=== PATIENT | female | born 1960 | race Caucasian/White ===

== ENCOUNTER 2019-02-16 18:27 | Inpatient (IN) | payer OTHER ==
[2019-02-16] MEDS ORDERED: SODIUM CHLORIDE 0.9% 1,000 ML IV ONE (18:39)
[2019-02-16 18:40] LABS: Glucose,Whole Blood 75 mg/dL (75-99)
[2019-02-16] MEDS ORDERED: fentaNYL (PF) 50 MCG/ML 2 ML AMP IVP STA (18:44)
[2019-02-16 19:21] LABS: Basophils % (A) 0 %; Eosinophils # (A) 0.1 k/uL (0-0.7); Eosinophils % (A) 0 %; HCT 32.8 % (34.0-46.0); HGB 10.6 gm/dL (11.4-16.0); Hypochromasia Slight; Lymphocytes # (A) 0.9 k/uL (1.0-4.8); Lymphocytes % (A) 5 %; MCH 40.1 pg (25.0-35.0); MCHC 32.3 g/dL (31.0-37.0); MCV 123.9 fL (80.0-100.0); Macrocytosis Marked; Mean Platelet Volume 10.1; Monocytes # (A) 0.7 k/uL (0-1.0); Monocytes % (A) 4 %; Neutrophils # (A) 16.6 k/uL (1.3-7.7); Neutrophils % (A) 90 %; Platelet Count 215 k/uL (150-450); RBC 2.65 m/uL (3.80-5.40); RDW 15.7 % (11.5-15.5); WBC 18.5 k/uL (3.8-10.6)
[2019-02-16 19:36] LABS: African American GFR (CKD) 43 (>60 ml/min/1.73 sqM); Albumin 3.2 g/dL (3.5-5.0); Alcohol <10 mg/dL; Alkaline Phosphatase 234 U/L (38-126); Anion Gap 24 mmol/L; Bilirubin, Conjugated 9.8 mg/dL (0.0-0.3); Bilirubin,Unconjugated 2.6 mg/dL (0.0-1.1); Blood Urea Nitrogen 13 mg/dL (7-17); Calcium 8.2 mg/dL (8.4-10.2); Chloride 108 mmol/L (98-107); Glucose 68 mg/dL (74-99); Non-African American GFR(CKD) 37 (>60 ml/min/1.73 sqM); Salicylate 1.1 mg/dL; Sodium 141 mmol/L (137-145)
--- NOTE | 2019-02-16 19:37 | XR ---
EXAMINATION TYPE: XR chest 1V portable DATE OF EXAM: 02/16/2019 COMPARISON: NONE HISTORY: Altered mental status TECHNIQUE: Single view FINDINGS: Heart is normal. Lungs are clear of infiltrate. There is no heart failure. Costophrenic ang les are clear. There are chest leads. IMPRESSION: No active cardiopulmonary disease. Normal heart.
[2019-02-16] MEDS ORDERED: PIPERACILLIN-TAZOBACTAM 3.375 GM in SODIUM CHLORIDE 0.9% 100 ML IVPB STA (19:38)
[2019-02-16 19:40] LABS: Bilirubin, Delta 6.4 mg/dL (0.0-0.2)
[2019-02-16 19:43] LABS: Lactic Acid, Venous 10.8 mmol/L (0.7-2.0)
[2019-02-16] MEDS ORDERED: SODIUM CHLORIDE 0.9% 2,000 ML IV ONE (19:45)
[2019-02-16 19:46] LABS: INR 1.8 (<1.2); Partial Thromboplastin Time 30.7 sec (22.0-30.0); Prothrombin Time 17.5 sec (9.0-12.0)
[2019-02-16 19:48] LABS: Poikilocytosis (M) Present; Target Cells Present
[2019-02-16 20:11] LABS: Carbon Dioxide 9 mmol/L (22-30); Total Bilirubin 18.8 mg/dL (0.2-1.3)
[2019-02-16 20:12] LABS: ALT 92 U/L (4-34); AST 464 U/L (14-36); Acetaminophen <10.0 ug/mL; Creatine Kinase 1060 U/L (30-135)
[2019-02-16 20:13] LABS: Appearance,Urine Turbid (Clear); Bacteria,Urine Few /hpf; Bilirubin,Urine 3+ (Negative); Blood,Urine Small (Negative); Budding Yeast,Urine Many /hpf; Color,Urine Dark Brown; Glucose,Urine (UA) Negative (Negative); Hyaline Casts,Urine 36 /lpf (0-2); Ketones,Urine Trace (Negative); Leukocyte Esterase,Urine Negative (Negative); Mucus,Urine Few /hpf; Nitrite,Urine Negative (Negative); PH, Urine 5.5 (5.0-8.0); Protein,Urine Trace (Negative); RBC,Urine 9 /hpf (0-5); Specific Gravity,Urine 1.014 (1.001-1.035); Squamous Epithelial Cell,Urine 13 /hpf (0-4); WBC,Urine 1 /hpf (0-5)
[2019-02-16 20:14] LABS: Amphetamine Screen,Urine Not Detected (NotDetected); Barbiturate Screen,Urine Not Detected (NotDetected); Benzodiazepines Screen,Urine Not Detected (NotDetected); Cocaine Screen,Urine Not Detected (NotDetected); Methadone Screen, Urine Not Detected (NotDetected); Opiate Screen,Urine Not Detected (NotDetected); Oxycodone Screen, Urine Not Detected (NotDetected); Phencyclidine Screen,Urine Not Detected (NotDetected); Tricyclic Antidepressant,Urine Not Detected (NotDetected); Urn Cannabinoid Scrn Not Detected (NotDetected)
[2019-02-16] MEDS ORDERED: DEXTROSE 50% SYRINGE 50 ML IVP STA (20:14)
--- NOTE | 2019-02-16 20:42 | CT ---
EXAMINATION TYPE: CT brain wo con DATE OF EXAM: 02/16/2019 COMPARISON: None HISTORY: Altered mental status. CT DLP: 2337.4 mGycm Automated exposure control for dose reduction was used. There is mild cerebral atrophy. There is no mass effect nor midline shift. There is no sign of intrac ranial hemorrhage. The calvarium is intact. IMPRESSION: Mild atrophy. No acute intracranial abnormality.
[2019-02-16] MEDS: LACTULOSE 200 GM/300 ML (FROM 1/2 GAL JUG) RECTAL ONE ×2 (20:58→22:03)
--- NOTE | 2019-02-16 21:09 | CT ---
EXAMINATION TYPE: CT angio abd aorta w/Runoff DATE OF EXAM: 02/16/2019 COMPARISON: None HISTORY: Pain. CT DLP: mGycm Automated exposure control for dose reduction was used. CONTRAST: Performed , patient injected with mL of . Multiple axial sections were obtained from the diaphragm to the bottom of the feet with intravenous c ontrast Isovue 100 mL. There are 3-D post processed images. FINDINGS: Lung bases are clear. There is no pleural effusion. There is diffuse fatty infiltration of the liver. Spleen is intact. There is no pancreatic mass. Stomach is intact. There is no adrenal mass. Kidneys show satisfactory contrast opacification. There is no mesenteric edema. There is free fluid in the lo wer abdomen and pelvis. There is Gilmore catheter in the urinary bladder. There is arterial flow in the celiac artery and superior mesenteric artery which are diminutive. Ther e is arterial flow in both renal arteries. There is arterial flow in the iliac and femoral arteries b ilaterally. There is patency of the profunda femoris artery and the superficial femoral artery. There is moderate subcutaneous edema over the posterior right side of the lower pelvis. There is subcutane ous edema in the posterior left upper thigh. There is some wall thickening of the right colon. There are numerous sigmoid diverticula. There is arterial flow in both popliteal arteries. There is arterial flow in the tibial arteries and the anterior and posterior tibial arteries in the lower legs. Exam limited slightly by motion on the left side. There is arterial flow in the posterior tibial arteries at both ankles. There is dorsalis pedis arter y flow on the right side. There is limited visualization of the arteries of the feet. The femoral and popliteal and tibial arteries are diminutive. IMPRESSION: There are generally small arteries of the abdomen pelvis and both legs. This is probably developmenta l but the possibility of diffuse vasculitis should be considered. No focal stenosis. Mild ascites. Fatty infiltration of the liver. Extensive sigmoid diverticulosis without diverticuliti s. There is some mild wall thickening of the right colon that could relate to nonspecific colitis. Subcutaneous edema as above in the posterior abdomen and pelvis and legs.
[2019-02-16] MEDS ORDERED: LACTULOSE 20 GM/30 ML CUP PO ONE (21:15)
--- NOTE | 2019-02-16 21:16 | ED ---
Altered Mental Status HPI - General Chief Complaint: Altered Mental Status Stated Complaint: altered mental status Time Seen by Provider: 02/16/19 18:27 Source: EMS Mode of arrival: EMS Limitations: altered mental status - History of Present Illness Initial Comments: The patient is a 58-year-old female with unknown past medical history who presents to the emergency room with reported altered mental status. EMS does provide history. They state that the patient's neighbor had last seen the patient normal on Wednesday. She does have a history of significant alcohol abuse. The neighbor then did check on the patient today because she had not seen her. She. Through her window and saw her laying on the ground. Police were called and ended up breaking in the door. They found the patient on the ground with signs that she had been there for an extended period of time. She was surrounded by liquor bottles. She was extremely jaundiced and contracted. She was nonverbal but moaning in pain. EMS does not have information available for a next of kin. It is unknown if she has any significant other or children. Unknown if the patient takes any medications or has any ALLERGIES. Remainder of HPI is limited because of the patient's current state - Related Data Home Medications Medication Instructions Recorded Confirmed No Known Home Medications 02/17/19 02/17/19 Allergies Allergy/AdvReac Type Severity Reaction Status Date / Time No Known Allergies Allergy Verified 02/17/19 13:04 Review of Systems ROS Statement: Those systems with pertinent positive or pertinent negative responses have been documented in the HPI. ROS Other: All systems not noted in ROS Statement are negative. Past Medical History Past Medical History: No Reported History History of Any Multi-Drug Resistant Organisms: Unobtainable Past Surgical History: No Surgical Hx Reported Past Psychological History: Unable to Obtain Smoking Status: Unknown if ever smoked Past Alcohol Use History: Unable to Obtain Past Drug Use History: Unable to Obtain - Past Family History Mother Family Medical History: Cancer Father History Unknown: Yes General Exam Limitations: altered mental status General appearance: obtunded, cachectic Head exam: Present: atraumatic, normocephalic Eye exam: Present: scleral icterus Pupils: Present: normal accommodation ENT exam: Present: mucous membranes dry Neck exam: Absent: tenderness, meningismus, thyromegaly Respiratory exam: Present: rales, decreased breath sounds Cardiovascular Exam: Present: normal rhythm, tachycardia GI/Abdominal exam: Present: tenderness, guarding, diminished bowel sounds. Absent: pulsatile mass Rectal exam: Present: normal rectal tone External exam: Present: normal external exam Extremities exam: Present: other (contracted, moans with movement of all 4 extremities) Back exam: Present: other (dependent skin breakdown - over coccyx, bilateral gluteal regions, left upper thoracic back. Stage 2) Neurological exam: Present: altered Skin exam: Present: pallor, mottled Course Vital Signs 02/16/19 02/16/19 02/16/19 18:28 18:53 19:29 Temperature 97.5 F L 98 F Pulse Rate 105 H 99 102 H Respiratory 16 20 20 Rate Blood Pressure 115/99 113/79 113/79 O2 Sat by Pulse 99 100 99 Oximetry 02/16/19 02/16/19 02/16/19 19:53 20:00 20:30 Temperature Pulse Rate 101 H 105 H 100 Respiratory 19 18 18 Rate Blood Pressure 113/79 128/58 O2 Sat by Pulse 100 100 100 Oximetry 02/16/19 02/16/19 02/16/19 21:00 21:30 22:00 Temperature 98 F 98 F 98.4 F Pulse Rate 100 104 H 103 H Respiratory 22 18 18 Rate Blood Pressure 117/57 139/80 120/55 O2 Sat by Pulse 100 100 100 Oximetry 02/16/19 02/17/19 02/17/19 23:30 00:00 00:02 Temperature 97.7 F Pulse Rate 103 H 98 Respiratory 25 H 12 16 Rate Blood Pressure 135/62 137/60 90/55 O2 Sat by Pulse 99 98 98 Oximetry 02/17/19 00:30 Temperature Pulse Rate 98 Respiratory 16 Rate Blood Pressure 90/55 O2 Sat by Pulse 98 Oximetry Medical Decision Making - Medical Decision Making Upon arrival the patient was promptly placed in the trauma bay 2. She is hooked up to continuous pulse ox and cardiac monitoring. 2 large peripheral IVs had been established. Vitals are evaluated and are stable. The patient is extremely jaundiced. GCS is 9. The patient was given a 3 L bolus of normal saline. A quick bedside ultrasound was performed which demonstrated no pericardial effusion. Abdominal aorta was difficult to visualize because of overlying bowel and ascites fluid. Laboratory studies were conducted. White blood count is 18.5. Hemoglobin 10.6. Platelets 2:15. INR is elevated at 1.8. Creatinine 1.5. Glucose 68. Lactic acid 10.8. Total bilirubin 18.8. Conjugated bilirubin 9.8. Unconjugated 2.6. AST 464. They'll T 92. Alk phos 234. Ammonia is 160. CK 1060. Lipase 739. Urinalysis shows small blood, 3+ bilirubin, 9 red blood cells, 13 epithelial cells, few bacteria. Salicylates is 1.1. Acetaminophen less than 10 and alcohol less than 10. Remainder of UDS is negative. I did start the patient on broad-spectrum antibiotics after blood cultures obtained. The patient was given a dose of Zosyn. I also inserted an NG tube and gave the patient 40 g of lactulose. A portable chest x-ray was p erformed which demonstrates no acute intrathoracic findings. CT of the patient's brain demonstrates mild atrophy with no acute intracranial process. I did perform a CT angiography of the patient's abdomen and pelvis that she does have cold distal extremities and high lactic acidosis. It does demonstrate mild ascites with fatty infiltration of liver. Subcutaneous edema of the posterior abdomen, pelvis and legs. The patient is monitored closely in the ER. No family has arrived and the patient continues to remain nonverbal. She is more alert and opening her eyes spontaneously. I do call discuss case with Dr. Hudson who accepts admission for the patient. I will place the patient in [facility]. Dr. Arrieta did accept admission. I did page doctor mcgill multiple times and currently am awaiting callback. I will continue the patient on fluid hydration and recheck the CK and ammonia in the morning. The patient remained in critical condition was transported to the ICU - Lab Data Result diagrams: 02/21/19 05:01 02/21/19 05:01 Lab Results 02/16/19 02/16/19 02/16/19 Range/Units 18:38 18:38 18:43 WBC 18.5 H (3.8-10.6) k/uL RBC 2.65 L (3.80-5.40) m/uL Hgb 10.6 L (11.4-16.0) gm/dL Hct 32.8 L (34.0-46.0) % MCV 123.9 H (80.0-100.0) fL MCH 40.1 H (25.0-35.0) pg MCHC 32.3 (31.0-37.0) g/dL RDW 15.7 H (11.5-15.5) % Plt Count 215 (150-450) k/uL Neutrophils % 90 % Lymphocytes % 5 % Monocytes % 4 % Eosinophils % 0 % Basophils % 0 % Neutrophils # 16.6 H (1.3-7.7) k/uL Lymphocytes # 0.9 L (1.0-4.8) k/uL Monocytes # 0.7 (0-1.0) k/uL Eosinophils # 0.1 (0-0.7) k/uL Basophils # 0.0 (0-0.2) k/uL Manual Slide Review Performed Hypochromasia Slight Poikilocytosis (manual Present Macrocytosis Marked A Target Cells Present PT (9.0-12.0) sec INR (<1.2) APTT (22.0-30.0) sec Sodium (137-145) mmol/L Potassium (3.5-5.1) mmol/L Chloride (98-107) mmol/L Carbon Dioxide (22-30) mmol/L Anion Gap mmol/L BUN (7-17) mg/dL Creatinine (0.52-1.04) mg/dL Est GFR (CKD-EPI)AfAm (>60 ml/min/1.73 sqM) Est GFR (CKD-EPI)NonAf (>60 ml/min/1.73 sqM) Glucose (74-99) mg/dL POC Glucose (mg/dL) 75 (75-99) mg/dL POC Glu Junior Accountant ID FarrellAshley Lactic Ac Sepsis Rflx Plasma Lactic Acid Macario (0.7-2.0) mmol/L Calcium (8.4-10.2) mg/dL Total Bilirubin (0.2-1.3) mg/dL Conjugated Bilirubin (0.0-0.3) mg/dL Unconjugated Bilirubin (0.0-1.1) mg/dL Delta Bilirubin (0.0-0.2) mg/dL AST (14-36) U/L ALT (4-34) U/L Alkaline Phosphatase (38-126) U/L Ammonia (<30) umol/L Creatine Kinase (30-135) U/L Troponin I (0.000-0.034) ng/mL Total Protein (6.3-8.2) g/dL Albumin (3.5-5.0) g/dL Lipase (23-300) U/L TSH (0.465-4.680) mIU/L Urine Color Urine Appearance (Clear) Urine pH (5.0-8.0) Ur Specific Dinosaur (1.001-1.035) Urine Protein (Negative) Urine Glucose (UA) (Negative) Urine Ketones (Negative) Urine Blood (Negative) Urine Nitrite (Negative) Urine Bilirubin (Negative) Urine Urobilinogen (<2.0) mg/dL Ur Leukocyte Esterase (Negative) Urine RBC (0-5) /hpf Urine WBC (0-5) /hpf Ur Squamous Epith Cells (0-4) /hpf Urine Bacteria (None) /hpf Hyaline Casts (0-2) /lpf Urine Mucus (None) /hpf Urine Yeast (Budding) (None) /hpf Salicylates mg/dL Urine Opiates Screen (NotDetected) Ur Oxycodone Screen (NotDetected) Urine Methadone Screen (NotDetected) Ur Propoxyphene Screen (NotDetected) Acetaminophen ug/mL Ur Barbiturates Screen (NotDetected) U Tricyclic Antidepress (NotDetected) Ur Phencyclidine Scrn (NotDetected) Ur Amphetamines Screen (NotDetected) U Methamphetamines Scrn (NotDetected) U Benzodiazepines Scrn (NotDetected) Urine Cocaine Screen (NotDetected) U Marijuana (THC) Screen (NotDetected) Serum Alcohol mg/dL Blood Type A Negative Blood Type Confirm Blood Type Recheck No Previous Record Bld Type Recheck Status CABO Indicated Antibody Screen NEGATIVE Spec Expiration Date 02/19/2019234202/16/19 02/16/19 02/16/19 Range/Units 18:43 18:43 18:43 WBC (3.8-10.6) k/uL RBC (3.80-5.40) m/uL Hgb (11.4-16.0) gm/dL Hct (34.0-46.0) % MCV (80.0-100.0) fL MCH (25.0-35.0) pg MCHC (31.0-37.0) g/dL RDW (11.5-15.5) % Plt Count (150-450) k/uL Neutrophils % % Lymphocytes % % Monocytes % % Eosinophils % % Basophils % % Neutrophils # (1.3-7.7) k/uL Lymphocytes # (1.0-4.8) k/uL Monocytes # (0-1.0) k/uL Eosinophils # (0-0.7) k/uL Basophils # (0-0.2) k/uL Manual Slide Review Hypochromasia Poikilocytosis (manual Macrocytosis Target Cells PT 17.5 H (9.0-12.0) sec INR 1.8 H (<1.2) APTT 30.7 H (22.0-30.0) sec Sodium 141 (137-145) mmol/L Potassium 4.0 (3.5-5.1) mmol/L Chloride 108 H (98-107) mmol/L Carbon Dioxide 9 L* (22-30) mmol/L Anion Gap 24 mmol/L BUN 13 (7-17) mg/dL Creatinine 1.53 H (0.52-1.04) mg/dL Est GFR (CKD-EPI)AfAm 43 (>60 ml/min/1.73 sqM) Est GFR (CKD-EPI)NonAf 37 (>60 ml/min/1.73 sqM) Glucose 68 L (74-99) mg/dL POC Glucose (mg/dL) (75-99) mg/dL POC Glu Junior Accountant ID Lactic Ac Sepsis Rflx Plasma Lactic Acid Macario (0.7-2.0) mmol/L Calcium 8.2 L (8.4-10.2) mg/dL Total Bilirubin 18.8 H* (0.2-1.3) mg/dL Conjugated Bilirubin 9.8 H (0.0-0.3) mg/dL Unconjugated Bilirubin 2.6 H (0.0-1.1) mg/dL Delta Bilirubin 6.4 H (0.0-0.2) mg/dL AST 464 H (14-36) U/L ALT 92 H (4-34) U/L Alkaline Phosphatase 234 H (38-126) U/L Ammonia (<30) umol/L Creatine Kinase 1060 H* (30-135) U/L Troponin I 0.018 (0.000-0.034) ng/mL Total Protein 7.0 (6.3-8.2) g/dL Albumin 3.2 L (3.5-5.0) g/dL Lipase 739 H (23-300) U/L TSH 1.710 (0.465-4.680) mIU/L Urine Color Urine Appearance (Clear) Urine pH (5.0-8.0) Ur Specific Dinosaur (1.001-1.035) Urine Protein (Negative) Urine Glucose (UA) (Negative) Urine Ketones (Negative) Urine Blood (Negative) Urine Nitrite (Negative) Urine Bilirubin (Negative) Urine Urobilinogen (<2.0) mg/dL Ur Leukocyte Esterase (Negative) Urine RBC (0-5) /hpf Urine WBC (0-5) /hpf Ur Squamous Epith Cells (0-4) /hpf Urine Bacteria (None) /hpf Hyaline Casts (0-2) /lpf Urine Mucus (None) /hpf Urine Yeast (Budding) (None) /hpf Salicylates 1.1 mg/dL Urine Opiates Screen (NotDetected) Ur Oxycodone Screen (NotDetected) Urine Methadone Screen (NotDetected) Ur Propoxyphene Screen (NotDetected) Acetaminophen <10.0 ug/mL Ur Barbiturates Screen (NotDetected) U Tricyclic Antidepress (NotDetected) Ur Phencyclidine Scrn (NotDetected) Ur Amphetamines Screen (NotDetected) U Methamphetamines Scrn (NotDetected) U Benzodiazepines Scrn (NotDetected) Urine Cocaine Screen (NotDetected) U Marijuana (THC) Screen (NotDetected) Serum Alcohol <10 mg/dL Blood Type Blood Type Confirm Blood Type Recheck Bld Type Recheck Status Antibody Screen Spec Expiration Date 02/16/19 02/16/19 02/16/19 Range/Units 18:43 18:43 19:09 WBC (3.8-10.6) k/uL RBC (3.80-5.40) m/uL Hgb (11.4-16.0) gm/dL Hct (34.0-46.0) % MCV (80.0-100.0) fL MCH (25.0-35.0) pg MCHC (31.0-37.0) g/dL RDW (11.5-15.5) % Plt Count (150-450) k/uL Neutrophils % % Lymphocytes % % Monocytes % % Eosinophils % % Basophils % % Neutrophils # (1.3-7.7) k/uL Lymphocytes # (1.0-4.8) k/uL Monocytes # (0-1.0) k/uL Eosinophils # (0-0.7) k/uL Basophils # (0-0.2) k/uL Manual Slide Review Hypochromasia Poikilocytosis (manual Macrocytosis Target Cells PT (9.0-12.0) sec INR (<1.2) APTT (22.0-30.0) sec Sodium (137-145) mmol/L Potassium (3.5-5.1) mmol/L Chloride (98-107) mmol/L Carbon Dioxide (22-30) mmol/L Anion Gap mmol/L BUN (7-17) mg/dL Creatinine (0.52-1.04) mg/dL Est GFR (CKD-EPI)AfAm (>60 ml/min/1.73 sqM) Est GFR (CKD-EPI)NonAf (>60 ml/min/1.73 sqM) Glucose (74-99) mg/dL POC Glucose (mg/dL) (75-99) mg/dL POC Glu Junior Accountant ID Lactic Ac Sepsis Rflx Plasma Lactic Acid Macario 10.8 H* (0.7-2.0) mmol/L Calcium (8.4-10.2) mg/dL Total Bilirubin (0.2-1.3) mg/dL Conjugated Bilirubin (0.0-0.3) mg/dL Unconjugated Bilirubin (0.0-1.1) mg/dL Delta Bilirubin (0.0-0.2) mg/dL AST (14-36) U/L ALT (4-34) U/L Alkaline Phosphatase (38-126) U/L Ammonia 160 H (<30) umol/L Creatine Kinase (30-135) U/L Troponin I (0.000-0.034) ng/mL Total Protein (6.3-8.2) g/dL Albumin (3.5-5.0) g/dL Lipase (23-300) U/L TSH (0.465-4.680) mIU/L Urine Color Dark Brown Urine Appearance Turbid H (Clear) Urine pH 5.5 (5.0-8.0) Ur Specific Dinosaur 1.014 (1.001-1.035) Urine Protein Trace H (Negative) Urine Glucose (UA) Negative (Negative) Urine Ketones Trace H (Negative) Urine Blood Small H (Negative) Urine Nitrite Negative (Negative) Urine Bilirubin 3+ H (Negative) Urine Urobilinogen 12.0 (<2.0) mg/dL Ur Leukocyte Esterase Negative (Negative) Urine RBC 9 H (0-5) /hpf Urine WBC 1 (0-5) /hpf Ur Squamous Epith Cells 13 H (0-4) /hpf Urine Bacteria Few H (None) /hpf Hyaline Casts 36 H (0-2) /lpf Urine Mucus Few H (None) /hpf Urine Yeast (Budding) Many H (None) /hpf Salicylates mg/dL Urine Opiates Screen Not Detected (NotDetected) Ur Oxycodone Screen Not Detected (NotDetected) Urine Methadone Screen Not Detected (NotDetected) Ur Propoxyphene Screen Not Detected (NotDetected) Acetaminophen ug/mL Ur Barbiturates Screen Not Detected (NotDetected) U Tricyclic Antidepress Not Detected (NotDetected) Ur Phencyclidine Scrn Not Detected (NotDetected) Ur Amphetamines Screen Not Detected (NotDetected) U Methamphetamines Scrn Not Detected (NotDetected) U Benzodiazepines Scrn Not Detected (NotDetected) Urine Cocaine Screen Not Detected (NotDetected) U Marijuana (THC) Screen Not Detected (NotDetected) Serum Alcohol mg/dL Blood Type Blood Type Confirm A Negative Blood Type Recheck Bld Type Recheck Status Antibody Screen Spec Expiration Date 02/16/19 Range/Units 19:43 WBC (3.8-10.6) k/uL RBC (3.80-5.40) m/uL Hgb (11.4-16.0) gm/dL Hct (34.0-46.0) % MCV (80.0-100.0) fL MCH (25.0-35.0) pg MCHC (31.0-37.0) g/dL RDW (11.5-15.5) % Plt Count (150-450) k/uL Neutrophils % % Lymphocytes % % Monocytes % % Eosinophils % % Basophils % % Neutrophils # (1.3-7.7) k/uL Lymphocytes # (1.0-4.8) k/uL Monocytes # (0-1.0) k/uL Eosinophils # (0-0.7) k/uL Basophils # (0-0.2) k/uL Manual Slide Review Hypochromasia Poikilocytosis (manual Macrocytosis Target Cells PT (9.0-12.0) sec INR (<1.2) APTT (22.0-30.0) sec Sodium (137-145) mmol/L Potassium (3.5-5.1) mmol/L Chloride (98-107) mmol/L Carbon Dioxide (22-30) mmol/L Anion Gap mmol/L BUN (7-17) mg/dL Creatinine (0.52-1.04) mg/dL Est GFR (CKD-EPI)AfAm (>60 ml/min/1.73 sqM) Est GFR (CKD-EPI)NonAf (>60 ml/min/1.73 sqM) Glucose (74-99) mg/dL POC Glucose (mg/dL) (75-99) mg/dL POC Glu Junior Accountant ID Lactic Ac Sepsis Rflx Y Plasma Lactic Acid Macario (0.7-2.0) mmol/L Calcium (8.4-10.2) mg/dL Total Bilirubin (0.2-1.3) mg/dL Conjugated Bilirubin (0.0-0.3) mg/dL Unconjugated Bilirubin (0.0-1.1) mg/dL Delta Bilirubin (0.0-0.2) mg/dL AST (14-36) U/L ALT (4-34) U/L Alkaline Phosphatase (38-126) U/L Ammonia (<30) umol/L Creatine Kinase (30-135) U/L Troponin I (0.000-0.034) ng/mL Total Protein (6.3-8.2) g/dL Albumin (3.5-5.0) g/dL Lipase (23-300) U/L TSH (0.465-4.680) mIU/L Urine Color Urine Appearance (Clear) Urine pH (5.0-8.0) Ur Specific Dinosaur (1.001-1.035) Urine Protein (Negative) Urine Glucose (UA) (Negative) Urine Ketones (Negative) Urine Blood (Negative) Urine Nitrite (Negative) Urine Bilirubin (Negative) Urine Urobilinogen (<2.0) mg/dL Ur Leukocyte Esterase (Negative) Urine RBC (0-5) /hpf Urine WBC (0-5) /hpf Ur Squamous Epith Cells (0-4) /hpf Urine Bacteria (None) /hpf Hyaline Casts (0-2) /lpf Urine Mucus (None) /hpf Urine Yeast (Budding) (None) /hpf Salicylates mg/dL Urine Opiates Screen (NotDetected) Ur Oxycodone Screen (NotDetected) Urine Methadone Screen (NotDetected) Ur Propoxyphene Screen (NotDetected) Acetaminophen ug/mL Ur Barbiturates Screen (NotDetected) U Tricyclic Antidepress (NotDetected) Ur Phencyclidine Scrn (NotDetected) Ur Amphetamines Screen (NotDetected) U Methamphetamines Scrn (NotDetected) U Benzodiazepines Scrn (NotDetected) Urine Cocaine Screen (NotDetected) U Marijuana (THC) Screen (NotDetected) Serum Alcohol mg/dL Blood Type Blood Type Confirm Blood Type Recheck Bld Type Recheck Status Antibody Screen Spec Expiration Date - EKG Data EKG Comments: EKG demonstrates sinus tachycardia with a ventricular rate of 103. ND interval 128. QRS any 6. QTC 497. No acute ST segment elevations or depressions concerning for ischemic change. Significant baseline artifact. Critical Care Time Critical Care Time: Yes Critical Care Time: 40 minutes for immediate cardiac and aortic ultrasound, fluid resuscitation and transfer to CT for angiogram due to difficulties in finding pulses in the patients lower extremities. Patient received multiple re-evaluations and had slight improvement in her mentation without signs of respiratory compromised therefore she was not vented as she was protecting her airway. NG was placed for lactulose administration. Disposition Clinical Impression: Hepatic encephalopathy, Altered mental status, Hyperammonemia, Transaminitis, Rhabdomyolysis, Alcoholic hepatitis with ascites Disposition: ADMITTED IP TO THIS HOSP Condition: Serious Is patient prescribed a controlled substance at d/c from ED?: No Decision to Admit Reason: Admit from EC Decision Date: 02/16/19 Decision Time: 21:21
[2019-02-16] MEDS ORDERED: NALOXONE 0.4 MG/ML 1 ML VIAL IV PRN (21:21)
[2019-02-16] MEDS: SODIUM CHLORIDE 0.9% 1,000 ML IV SCH (22:42)
[2019-02-16 23:21] LABS: Glucose,Whole Blood 180 mg/dL (75-99)
[2019-02-17 04:40] LABS: Basophils % (A) 0 %; Eosinophils # (A) 0.1 k/uL (0-0.7); Eosinophils % (A) 0 %; HCT 27.6 % (34.0-46.0); HGB 9.1 gm/dL (11.4-16.0); Lymphocytes # (A) 0.8 k/uL (1.0-4.8); Lymphocytes % (A) 6 %; MCH 40.1 pg (25.0-35.0); MCV 121.8 fL (80.0-100.0); Macrocytosis Marked; Mean Platelet Volume 9.7; Monocytes # (A) 0.5 k/uL (0-1.0); Monocytes % (A) 4 %; Neutrophils # (A) 11.4 k/uL (1.3-7.7); Neutrophils % (A) 89 %; Platelet Count 162 k/uL (150-450); RBC 2.26 m/uL (3.80-5.40); RDW 15.9 % (11.5-15.5); WBC 12.9 k/uL (3.8-10.6)
[2019-02-17 04:45] LABS: Albumin 2.3 g/dL (3.5-5.0); Calcium 6.9 mg/dL (8.4-10.2); Phosphorus 3.5 mg/dL (2.5-4.5); Total Protein 5.3 g/dL (6.3-8.2)
[2019-02-17 04:46] LABS: Total Bilirubin 15.5 mg/dL (0.2-1.3)
[2019-02-17] MEDS ORDERED: Potassium Replacement Protocol 1 EACH MISC MISCELLANE PRN (05:01)
[2019-02-17] MEDS: POTASSIUM CHLORIDE 10 MEQ in WATER FOR INJECTION 1 100ML.BAG IVPB SCH ×4 (05:21→09:45)
[2019-02-17] MEDS: SODIUM CHLORIDE 0.9% 1,000 ML IV SCH ×3 (05:21→16:54)
[2019-02-17] MEDS: PIPERACILLIN-TAZOBACTAM 3.375 GM in SODIUM CHLORIDE 0.9% 100 ML IVPB SCH ×3 (05:24→20:29)
[2019-02-17] MEDS: HEPARIN SODIUM,PORCINE 5,000 UNIT/ML 1 ML VIAL SQ SCH ×2 (08:09→15:25)
[2019-02-17] MEDS: PANTOPRAZOLE 40 MG/10 ML VIAL IV SCH (08:10)
[2019-02-17] MEDS: LACTULOSE 20 GM/30 ML CUP PO SCH ×3 (09:44→21:18)
--- NOTE | 2019-02-17 10:03 | XR ---
EXAMINATION TYPE: XR chest 1V DATE OF EXAM: 02/17/2019 COMPARISON: 02/16/2019 HISTORY: NG tube placement TECHNIQUE: Single frontal view of the chest is obtained. FINDINGS: NG tube seen with the tip at the level the distal esophagus. Subsegmental changes at both lung bases. No overt failure or pneumothorax. Heart size normal. No sizable pleural effusion. IMPRESSION: 1. Basilar atelectasis favored over infiltrate. 2. NG tube suspected to be with the tip at the level of the distal esophagus and recommended to be ad vanced.
--- NOTE | 2019-02-17 10:54 | CONS ---
CONSULTATION PULMONARY/CRITICAL CARE CONSULTATION: DATE OF CONSULTATION: February 17, 2019. The patient is seen for altered mental status. This patient was brought in by EMS. This is a 58-year-old female with unknown past medical history, who apparently presented to the emergency room, brought in by a friend or reported by a friend, and brought in by EMS for mental status changes. The patient herself could not provide any history and the EMS personnel could not provide any additional history. The patient was last seen by a neighbor normally on Wednesday. She was brought in yesterday on 16 of February. She apparently was found to be lying on the ground with empty alcohol bottles around her. She was very jaundiced when she came in. She was nonverbal. She was moaning. Again, no history could be obtained for her and there was nobody else that they could get any history at all from. Not much is known about this patient and she has never been here at this hospital. ALLERGIES: Allergies are unknown. MEDICATIONS: Home medications are unknown if any at all. Current medications include subcu heparin, lactulose, potassium replacement protocol, Narcan, Protonix, Zosyn and potassium replacement protocol. She is also on a saline IV at 150 mL an hour. PAST MEDICAL HISTORY AND PAST SURGICAL HISTORY: Her past medical history and past surgical history were not able to be obtained. It appears that she has chronic long-standing alcohol abuse with alcoholic liver disease, cirrhosis, hepatic encephalopathy and hyperammonemia with ascites. SOCIAL HISTORY: Not known including alcohol, tobacco or illicit drug use, although alcohol chronically is suspected. Her alcohol level on admission was normal. FAMILY HISTORY: Nothing is known about her family history. REVIEW OF SYSTEMS: Cannot be obtained. PHYSICAL EXAMINATION: VITAL SIGNS: Current vital signs include temperature 98.7, heart rate 89, respiratory rate 17, blood pressure 90/55, mean 66, and saturations on 2 L about 96% to 98%. GENERAL: Currently poorly responsive. She does respond somewhat to deep pain by moving. She does not respond to any verbal stimuli. HEENT: Examination is grossly unremarkable. She does have scleral icterus. Nasal O2 noted. NECK: Supple. Full range of motion. No adenopathy. CARDIOVASCULAR: Examination reveals regular rhythm and rate. Heart rate 80 beats per minute. S1, S2 normal. LUNGS: Reveal mostly clear breath sounds. She does not take deep breaths. ABDOMEN: Is mildly distended. There may be some ascites. EXTREMITIES: Are intact. No edema. SKIN: Is icteric. She has got severe jaundice. NEUROLOGIC: Examination is difficult to assess. She responds poorly to deep pain. Does not speak. Does move all 4 extremities. Pupils are normal size and reactive. Obviously, breathing. LABS: Labs are reviewed. White count 12.9, hemoglobin 9.1, hematocrit 27.6, platelet count 162,000. PT 17.5, INR 1.8, PTT 30.7. Sodium 141, potassium 3, chloride 114, and CO2 is 15. Anion gap is 12. BUN and creatinine were 14 and 1.37. Glucose 155. Lactic acid was 7.3 has come down nicely to 2.5. Calcium is 6.9. Total bilirubin was 18.8 down to 15.5, AST is 380 down from 464, ALT 77 down from 92, alkaline phosphatase 168 down from 234. Ammonia level is 86, down from 160. CK was 1165. Albumin 2.3. Lipase 739. Urine is dark brown and turbid. There is trace protein, trace ketones, small blood, 3+ bilirubin, 9 RBCs, 1 WBC, few bacteria. Drug screen is negative. Salicylates 1.1. Tylenol less than 10 and serum alcohol less than 10. Microbiology is pending or negative. Chest x-ray shows no acute cardiopulmonary disease. A brain scan shows nothing acute. The results of the CT angiography are noted. MEDICATIONS: Current medications include subcu heparin, lactulose, Narcan, Protonix, Zosyn, potassium replacement, and saline at 150 an hour. ASSESSMENT: 1. Presumed severe alcohol abuse with alcoholic liver disease and cirrhosis, hepatic encephalopathy and hyperammonemia. 2. Elevated ammonia level, causing mental status changes. 3. Probable abdominal ascites. 4. Coagulopathy of alcohol abuse. 5. Anemia. 6. Hypokalemia. 7. Lactic acidemia. 8. Hyperbilirubinemia. 9. Abnormal liver function tests. 10.Rule out alcoholic pancreatitis. PLAN: The patient's overall prognosis is very poor. We will see if we cannot gain some additional history from family members. So far we have not been able to identify any family members. Additional recommendations and suggestions are forthcoming. Again prognosis is very poor. We will continue to follow. She may benefit from transfer to a liver unit as additional information is gained. MMODL / IJN: [id number] /
--- NOTE | 2019-02-17 12:53 | US ---
EXAMINATION TYPE: US abdomen complete DATE OF EXAM: 02/17/2019 COMPARISON: CT 02/16/2019 CLINICAL HISTORY: elevated LFTs, bili, ETOH abuse. Extremely difficult and limited exam. Patient in I CU, non-responsive. Unable to move, take a deep breath in. EXAM MEASUREMENTS: Liver Length: 14.5 cm Gallbladder Wall: Surgically absent CBD: 0.4 cm Spleen: 8.0 cm Right Kidney: 11.5 x 4.5 x 5.0 cm Left Kidney: 9.2 x 5.1 x 4.5 cm Pancreas: Obscured by bowel gas Liver: Attenuating, cirrhotic appearance Gallbladder: Surgically absent per daughter CBD: wnl as visualized Spleen: wnl as visualized Right Kidney: No hydronephrosis or masses seen as visualized Left Kidney: No hydronephrosis or masses seen as visualized Upper IVC: Not visualized with certainty Abd Aorta: Atherosclerotic changes visualized within limited portions visualized Small amount of free fluid visualized in RUQ and RLQ IMPRESSION: 1. Correlate for hydrocephaly or disease or cirrhosis. 2. Small amount of free fluid in the right abdomen.
[2019-02-17 12:58] LABS: Glucose,Whole Blood 136 mg/dL (75-99)
--- NOTE | 2019-02-17 13:32 | HP ---
HISTORY AND PHYSICAL A 58-year-old white female came with altered mental status to the hospital. She was found at home after multiple days on the floor. Apparently, she was found by a friend on the floor with mental status changes, rolling around in stool. Apparently, she was surrounded by alcohol empty bottles every where. She has severe jaundice, moaning and groaning. There is no history. There is no family. She is found to have severe elevated liver enzymes and CPK levels and ammonia levels and possibly septic. She is admitted in the ICU. Consult with payroll associate is seen. She is on potassium replacement protocol. She is on lactulose, subcu heparin, Zosyn for aspiration pneumonia, Protonix for GERD, saline IV at 150 mL per hour for rhabdomyolysis. No history is available at all at this time. All we know about her, is possibly standing alcohol abuse and alcoholic liver disease, hepatic encephalopathy, hyperammonemia, cirrhosis. She is on CIWA protocol. SOCIAL HISTORY AND FAMILY HISTORY: Unknown. REVIEW OF SYSTEMS: Cannot be obtained. PHYSICAL EXAMINATION: Heart rate is in 80s, temperature is afebrile, respiratory 16 to 20, blood pressure is low 90s over 50s. She is on 2 L of oxygen 96% to 98%. She is unconscious, moaning and groaning. She appears to have some increased respiratory rate. She is not responding to verbal stimuli. INTEGUMENT: She is icteric everywhere. NECK: Shows no adenopathy. HEART: S1, S2. LUNGS: Are diminished breath sounds x4. No rales or rhonchi. ABDOMEN: Distended due to ascites with fluid wave. EXTREMITIES: No cyanosis, clubbing, or edema. NEUROLOGICALLY: She just moans and groans, does not respond to questions. She does move all 4 extremities, responding to deep pain only. LABS: Labs show hemoglobin 9.1, white count 12.9, platelets 162,000. Sodium 141, potassium 3, CO2 is 15. BUN and creatinine is 14 and 1.37. Glucose 155. Lactic acid 7.3, now down to 2.5 overnight. Calcium 6.9. Bilirubin 18.8 down to 15.5. ALT went from 464 to 380, ALT 92 to 77, alkaline phosphatase 234 to 168. Ammonia level 160 to 86. CPK is 1165. Albumin 2.3. Lipase 739. Chest x-ray is negative. Brain scan negative. CT angiogram reviewed. Medications reviewed. Urine is severely dark brown, turbid, few bacteria, 3+ bilirubin. Urine drug screen is negative. Salicylate level is negative. Alcohol level is negative. ASSESSMENT: 1. Hyperammonemia, hyper ammonia levels. 2. Altered mental status. 3. Coagulopathy due to possible alcohol abuse. 4. Abdominal ascites. 5. Alcoholic liver disease. 6. Cirrhosis. 7. Hepatic encephalopathy. 8. Hyperammonemia. 9. Lactic acidemia, improving. 10.Hypokalemia, improving. 11.Hyperbilirubinemia, improving. 12.Possible pancreatitis. 13.Abnormal liver function test. Prognosis is very poor, Her levels are improving overnight with fluids. There are no family members nor identifying anybody to talk to from the family. We will get liver physician to reassess the patient as well as payroll associate possibly transfer if recommended by the liver specialist. ICU 60 minutes. MMODL / VEEN: [id number] /
[2019-02-17] MEDS ORDERED: SODIUM CHLORIDE 0.9% 1,000 ML IV ONE (13:57)
[2019-02-17] MEDS ORDERED: LORazepam 2 MG/ML INJ IV PRN ×3 (14:04)
[2019-02-17] MEDS ORDERED: THIAMINE 100 MG/ML 2 ML VIAL IM STA (14:04)
[2019-02-17 17:02] LABS: Glucose,Whole Blood 129 mg/dL (75-99)
[2019-02-17 18:15] LABS: Protein, Total 5.3 g/dL (6.2-8.2)
[2019-02-17 19:49] LABS: % Iron Saturation 63.43 (12.00-45.00); Ferritin 2067.6 ng/mL (10.0-291.0)
[2019-02-18 00:01] LABS: Glucose,Whole Blood 119 mg/dL (75-99)
[2019-02-18] MEDS: SODIUM CHLORIDE 0.9% 1,000 ML IV SCH ×4 (00:04→20:03)
[2019-02-18] MEDS: HEPARIN SODIUM,PORCINE 5,000 UNIT/ML 1 ML VIAL SQ SCH ×3 (00:04→15:15)
[2019-02-18 00:53] LABS: Alpha Fetoprotein, Tumor Mkr 3.8 ng/mL (0.0-7.9)
[2019-02-18 01:49] LABS: Hepatitis A Antibody IgM Non-Reactive (Non-Reactive); Hepatitis B Core IgM Non-Reactive (Non-Reactive); Hepatitis B Surface Antigen Non-Reactive (Non-Reactive); Hepatitis C IgG Antibody Non-Reactive (Non-Reactive)
[2019-02-18 05:24] LABS: Basophils % (A) 0 %; Eosinophils % (A) 0 %; HCT 29.7 % (34.0-46.0); HGB 9.4 gm/dL (11.4-16.0); Lymphocytes # (A) 1.1 k/uL (1.0-4.8); Lymphocytes % (A) 11 %; MCH 39.2 pg (25.0-35.0); MCHC 31.8 g/dL (31.0-37.0); Monocytes # (A) 0.3 k/uL (0-1.0); Monocytes % (A) 3 %; Neutrophils % (A) 84 %; Platelet Count 144 k/uL (150-450); RBC 2.41 m/uL (3.80-5.40); RDW 15.7 % (11.5-15.5); WBC 9.5 k/uL (3.8-10.6)
[2019-02-18 05:28] LABS: Macrocytosis Marked
[2019-02-18 05:39] LABS: Albumin 2.1 g/dL (3.5-5.0); Potassium 3.3 mmol/L (3.5-5.1); Total Bilirubin 13.7 mg/dL (0.2-1.3)
[2019-02-18 06:03] LABS: Glucose,Whole Blood 113 mg/dL (75-99)
[2019-02-18] MEDS ORDERED: Potassium Replacement Protocol 1 EACH MISC MISCELLANE PRN ×2 (06:05→06:25)
[2019-02-18] MEDS: PIPERACILLIN-TAZOBACTAM 3.375 GM in SODIUM CHLORIDE 0.9% 100 ML IVPB SCH ×3 (06:24→20:04)
[2019-02-18] MEDS: POTASSIUM CHLORIDE 10 MEQ in WATER FOR INJECTION 1 100ML.BAG IVPB SCH ×4 (06:42→10:21)
[2019-02-18] MEDS ORDERED: POTASSIUM CHLORIDE ER 20 MEQ TAB.ER PO SCH (07:00)
[2019-02-18] MEDS: PANTOPRAZOLE 40 MG/10 ML VIAL IV SCH (08:00)
[2019-02-18] MEDS: LACTULOSE 20 GM/30 ML CUP PO SCH ×3 (08:00→22:41)
[2019-02-18] MEDS: THIAMINE 100 MG/ML 2 ML VIAL IVP SCH (08:01)
--- NOTE | 2019-02-18 10:30 | P.PN ---
Subjective Progress Note Date: 02/18/19 Principal diagnosis: Altered mental status secondary to suspected hepatic encephalopathy and hyper ammonia anemia secondary to severe alcohol abuse and cirrhosis The patient is seen today 02/18/2019 in follow-up in the intensive care unit. She arouses to loud verbal stimuli but drifts off easily. Not following any simple commands. She's been maintaining O2 saturation in the 90s on room air. She's been afebrile. Hemodynamically stable. She has 0.9 normal saline at 150 MLS per hour. Blood cultures reveal no growth. White count 9.5. Hemoglobin 9.4. Platelet count 144,000. Sodium 143. Potassium 3.3. Chloride 121. Bicarb 14. Creatinine 1.40. AST 265, ALT 85, alk phos 160. Albumin 2.1. Lipase 734. Ammonia has improved to 79. CK 485. She is concerned unit on lactulose, thiamine, Zosyn. Electrolytes being replaced. Objective - Vital Signs Vital signs: Vital Signs Temp 98.5 F 02/18/19 08:00 Pulse 86 02/18/19 10:00 Resp 12 02/18/19 10:00 BP 102/65 02/18/19 10:00 Pulse Ox 99 02/18/19 10:00 Intake & Output 02/17/19 02/18/19 02/18/19 18:59 06:59 18:59 Intake Total 2575 1925 730 Output Total 298 214 90 Balance 2277 1711 640 Weight 55.5 kg 58.5 kg Intake: IV 2575 1925 650 Piperacillin-Tazobactam 3 75 25 .375 gm In Sodium Chloride 0.9% 100 ml @ 200 mls/hr IVPB ONCE STA Rx#:[id number] Piperacillin-Tazobactam 3 100 100 .375 gm In Sodium Chloride 0.9% 100 ml @ 25 mls/hr IVPB Q8H SUSANNA Rx#: [id number] Potassium Chloride 10 meq 300 300 In Water For Injection 1 100ml.bag @ 100 mls/hr IVPB Q1HR SUSANNA Rx#: [id number] Potassium Chloride 10 meq 100 In Water For Injection 1 100ml.bag @ 100 mls/hr IVPB Q1HR SUSANNA Rx#: [id number] Sodium Chloride 0.9% 1, 2200 1800 150 000 ml @ 150 mls/hr IV . Q6H40M SUSANNA Rx#:[id number] Other 80 Output: Urine 295 213 90 Stool 3 1 Other: Voiding Method Indwelling Catheter Indwelling Catheter Indwelling Catheter # Bowel Movements 1 - Exam GENERAL EXAM: Lethargic, jaundiced 58-year-old female patient, appears older than stated age. On room air, in no apparent distress. HEAD: Normocephalic. EYES: Normal reaction of pupils, equal size. Sclera anicteric. NOSE: Clear with pink turbinates. THROAT: No erythema or exudates. NECK: No masses, no JVD. CHEST: No chest wall deformity. LUNGS: Equal air entry with no crackles, wheeze, rhonchi or dullness. CVS: S1 and S2 normal with no audible murmur, regular rhythm. ABDOMEN: No hepatosplenomegaly, normal bowel sounds, no guarding or rigidity. SPINE: No scoliosis or deformity SKIN: No rashes CENTRAL NERVOUS SYSTEM: Lethargic, tone is normal in all 4 extremities. EXTREMITIES: There is no peripheral edema. No clubbing, no cyanosis. Peripheral pulses are intact. - Labs CBC & Chem 7: 02/18/19 04:47 02/18/19 04:47 Labs: Abnormal Lab Results - Last 24 Hours (Table) 02/17/19 02/17/19 02/17/19 Range/Units 11:51 11:51 11:59 RBC (3.80-5.40) m/uL Hgb (11.4-16.0) gm/dL Hct (34.0-46.0) % MCV (80.0-100.0) fL MCH (25.0-35.0) pg RDW (11.5-15.5) % Plt Count (150-450) k/uL Neutrophils # (1.3-7.7) k/uL Macrocytosis Potassium (3.5-5.1) mmol/L Chloride (98-107) mmol/L Carbon Dioxide (22-30) mmol/L BUN (7-17) mg/dL Creatinine (0.52-1.04) mg/dL Glucose (74-99) mg/dL POC Glucose (mg/dL) (75-99) mg/dL Plasma Lactic Acid Macario 2.9 H* (0.7-2.0) mmol/L Calcium (8.4-10.2) mg/dL TIBC 175 L (228-460) ug/dL % Saturation 63.43 H (12.00-45.00) Ferritin 2067.6 H (10.0-291.0) ng/mL Total Bilirubin (0.2-1.3) mg/dL AST (14-36) U/L ALT (4-34) U/L Alkaline Phosphatase (38-126) U/L Ammonia (<30) umol/L Creatine Kinase (30-135) U/L Total Protein (6.3-8.2) g/dL Total Protein (PEP) 5.3 L (6.2-8.2) g/dL Albumin (3.5-5.0) g/dL Lipase (23-300) U/L 02/17/19 02/17/19 02/17/19 Range/Units 12:57 17:01 23:59 RBC (3.80-5.40) m/uL Hgb (11.4-16.0) gm/dL Hct (34.0-46.0) % MCV (80.0-100.0) fL MCH (25.0-35.0) pg RDW (11.5-15.5) % Plt Count (150-450) k/uL Neutrophils # (1.3-7.7) k/uL Macrocytosis Potassium (3.5-5.1) mmol/L Chloride (98-107) mmol/L Carbon Dioxide (22-30) mmol/L BUN (7-17) mg/dL Creatinine (0.52-1.04) mg/dL Glucose (74-99) mg/dL POC Glucose (mg/dL) 136 H 129 H 119 H (75-99) mg/dL Plasma Lactic Acid Macario (0.7-2.0) mmol/L Calcium (8.4-10.2) mg/dL TIBC (228-460) ug/dL % Saturation (12.00-45.00) Ferritin (10.0-291.0) ng/mL Total Bilirubin (0.2-1.3) mg/dL AST (14-36) U/L ALT (4-34) U/L Alkaline Phosphatase (38-126) U/L Ammonia (<30) umol/L Creatine Kinase (30-135) U/L Total Protein (6.3-8.2) g/dL Total Protein (PEP) (6.2-8.2) g/dL Albumin (3.5-5.0) g/dL Lipase (23-300) U/L 02/18/19 02/18/19 02/18/19 Range/Units 04:47 04:47 04:47 RBC 2.41 L (3.80-5.40) m/uL Hgb 9.4 L (11.4-16.0) gm/dL Hct 29.7 L (34.0-46.0) % MCV 123.0 H (80.0-100.0) fL MCH 39.2 H (25.0-35.0) pg RDW 15.7 H (11.5-15.5) % Plt Count 144 L (150-450) k/uL Neutrophils # 8.0 H (1.3-7.7) k/uL Macrocytosis Marked A Potassium 3.3 L (3.5-5.1) mmol/L Chloride 121 H (98-107) mmol/L Carbon Dioxide 14 L (22-30) mmol/L BUN 20 H (7-17) mg/dL Creatinine 1.40 H (0.52-1.04) mg/dL Glucose 108 H (74-99) mg/dL POC Glucose (mg/dL) (75-99) mg/dL Plasma Lactic Acid Macario (0.7-2.0) mmol/L Calcium 7.0 L (8.4-10.2) mg/dL TIBC (228-460) ug/dL % Saturation (12.00-45.00) Ferritin (10.0-291.0) ng/mL Total Bilirubin 13.7 H (0.2-1.3) mg/dL AST 265 H (14-36) U/L ALT 85 H (4-34) U/L Alkaline Phosphatase 160 H (38-126) U/L Ammonia 79 H (<30) umol/L Creatine Kinase 485 H (30-135) U/L Total Protein 5.0 L (6.3-8.2) g/dL Total Protein (PEP) (6.2-8.2) g/dL Albumin 2.1 L (3.5-5.0) g/dL Lipase 734 H (23-300) U/L 02/18/19 Range/Units 06:02 RBC (3.80-5.40) m/uL Hgb (11.4-16.0) gm/dL Hct (34.0-46.0) % MCV (80.0-100.0) fL MCH (25.0-35.0) pg RDW (11.5-15.5) % Plt Count (150-450) k/uL Neutrophils # (1.3-7.7) k/uL Macrocytosis Potassium (3.5-5.1) mmol/L Chloride (98-107) mmol/L Carbon Dioxide (22-30) mmol/L BUN (7-17) mg/dL Creatinine (0.52-1.04) mg/dL Glucose (74-99) mg/dL POC Glucose (mg/dL) 113 H (75-99) mg/dL Plasma Lactic Acid Macario (0.7-2.0) mmol/L Calcium (8.4-10.2) mg/dL TIBC (228-460) ug/dL % Saturation (12.00-45.00) Ferritin (10.0-291.0) ng/mL Total Bilirubin (0.2-1.3) mg/dL AST (14-36) U/L ALT (4-34) U/L Alkaline Phosphatase (38-126) U/L Ammonia (<30) umol/L Creatine Kinase (30-135) U/L Total Protein (6.3-8.2) g/dL Total Protein (PEP) (6.2-8.2) g/dL Albumin (3.5-5.0) g/dL Lipase (23-300) U/L Microbiology - Last 24 Hours (Table) 02/16/19 18:43 Blood Culture - Preliminary Blood No Growth after 24 hours Assessment and Plan Assessment: 1 Altered mental status secondary to hepatic encephalopathy and hyperammonemia 2 Severe alcohol abuse with alcoholic liver disease and cirrhosis 3 Elevated ammonia levels causing mental status changes, trending down 4 Abdominal ascites 5 Coagulopathy of alcohol abuse 6 Anemia 7 Elevated LFTs, trending down 8 Alcoholic pancreatitis with elevated lipase Plan: The patient was seen and evaluated by Dr. Arrieta. Not much improvement today as compared to yesterday. We'll continue the current treatment plan. Her overall prognosis is quite guarded and poor. We will continue to monitor her here closely in the intensive care unit. We'll continue to follow. I, the cosigning physician, performed a history & physical examination of the patient. Lungs sounds are clear. Maintaining good O2 saturations in the 90s on room air. I discussed the assessment and plan of care with my nurse practitioner, Cindi Mcbride. I attest to the above note as dictated by her.
--- NOTE | 2019-02-18 11:21 | P.CONS ---
History of Present Illness - Reason for Consult Consult date: 02/17/19 Alcoholic hepatitis, encephalopathy Requesting physician: Hilario Hudson - Chief Complaint Altered mental status - History of Present Illness 58-year-old female with a medical history significant for alcohol abuse who presented to the hospital after being found passed out in her home. The patient has not been seen for a few days, and her neighbor had called to check on her and saw her down department of EMS was called. History taken on review of EMR and in discussion with the patient's daughter. Her daughter states that she has not been contact with her mom for the past few years however when she was last contact with her she was drinking heavily and she found multiple empty bottles of all the patient department. On presentation hospital patient was found to have WBCs 12.9, hemoglobin 9.1, bili 162,000, MCV 121.8, lipase 739, CK 1165, ammonia 160, trended down to 86, total bilirubin 15.5, alkaline phosphatase 168, AST 380, and ALT 77. Computed tomography scan showed mild ascites, diverticulosis, and right colonic wall thickening. Review of Systems Unable to obtain secondary to patient to loose currently responsive to painful stimuli. ROS unobtainable: due to mental status Past Medical History Past Medical History: No Reported History History of Any Multi-Drug Resistant Organisms: Unobtainable Past Surgical History: No Surgical Hx Reported Past Psychological History: Unable to Obtain Smoking Status: Unknown if ever smoked Past Alcohol Use History: Unable to Obtain Past Drug Use History: Unable to Obtain - Past Family History Mother Family Medical History: Cancer Father History Unknown: Yes Medications and Allergies Home Medications Medication Instructions Recorded Confirmed Type No Known Home Medications 02/17/19 02/17/19 History Allergies Allergy/AdvReac Type Severity Reaction Status Date / Time No Known Allergies Allergy Verified 02/17/19 13:04 Physical Exam Vitals: Vital Signs Temp Pulse Resp BP Pulse Ox 02/17/19 10:00 100 16 98/60 96 02/17/19 09:30 89 17 90/55 96 02/17/19 09:00 86 17 108/66 96 02/17/19 08:30 98 21 117/53 98 02/17/19 08:00 98.7 F 100 18 114/64 98 02/17/19 07:30 100 20 113/63 97 02/17/19 07:00 97 16 92/55 97 01/03/20 06:30 86 16 101/53 97 02/17/19 06:00 90 17 119/79 96 02/17/19 05:30 108 H 22 111/66 98 02/17/19 05:00 101 H 17 110/61 88 L 02/17/19 04:30 96 18 108/66 99 02/17/19 04:00 98.3 F 101 H 17 108/66 99 02/17/19 03:30 94 16 111/63 99 02/17/19 03:00 101 H 18 108/71 99 02/17/19 02:30 99 18 108/71 98 02/17/19 02:00 100 17 105/59 99 02/17/19 01:30 93 15 96/67 98 02/17/19 01:00 100 16 92/65 98 02/17/19 00:30 98 16 90/55 98 02/17/19 00:02 98 16 90/55 98 02/17/19 00:00 103 H 12 137/60 98 02/16/19 23:30 97.7 F 25 H 135/62 99 02/16/19 22:00 98.4 F 103 H 18 120/55 100 02/16/19 21:30 98 F 104 H 18 139/80 100 02/16/19 21:00 98 F 100 22 117/57 100 02/16/19 20:30 100 18 100 02/16/19 20:00 105 H 18 128/58 100 02/16/19 19:53 101 H 19 113/79 100 02/16/19 19:29 98 F 102 H 20 113/79 99 02/16/19 18:53 99 20 113/79 100 02/16/19 18:28 97.5 F L 105 H 16 115/99 99 Intake and Output 02/16/19 02/17/19 02/17/19 22:59 06:59 14:59 Intake Total 1250 450 Output Total 390 125 Balance 860 325 Intake: IV 1250 450 Piperacillin-Tazobactam 3 100 .375 gm In Sodium Chloride 0.9% 100 ml @ 200 mls/hr IVPB ONCE [facility] Rx#:[id number] Potassium Chloride 10 meq 100 300 In Water For Injection 1 100ml.bag @ 100 mls/hr IVPB Q1HR [facility] Rx#: [id number] Sodium Chloride 0.9% 1, 1050 150 000 ml @ 150 mls/hr IV . Q6H40M [facility] Rx#:[id number] Output: Urine 390 125 Other: Voiding Method Indwelling Catheter Indwelling Catheter # Bowel Movements 1 1 Weight 54.431 kg 55.5 kg 55.5 kg On physical examination, patient appears comfortable in no apparent distress. HEAD: Normocephalic, atraumatic. EYES: Scleral icterus. No conjunctival injection. MOUTH: No lesions, tongue midline. NECK: Trachea midline, no gross abnormalities. CHEST: Clear to auscultation with no wheezing or rhonchi appreciated. HEART: Regular rate and rhythm. ABDOMEN: Soft. Bowel sounds are positive. No organomegaly. No guarding or rigidity. EXTREMITIES: No pedal edema. SKIN: No rashes, jaundice. NEUROLOGIC: Alert and oriented x0, responsive to voice and painful stimuli. Results CBC & Chem 7: 02/18/19 04:47 02/18/19 04:47 Labs: Abnormal Lab Results - Last 24 Hours (Table) 02/16/19 02/16/19 02/16/19 Range/Units 18:43 18:43 18:43 WBC 18.5 H (3.8-10.6) k/uL RBC 2.65 L (3.80-5.40) m/uL Hgb 10.6 L (11.4-16.0) gm/dL Hct 32.8 L (34.0-46.0) % MCV 123.9 H (80.0-100.0) fL MCH 40.1 H (25.0-35.0) pg RDW 15.7 H (11.5-15.5) % Neutrophils # 16.6 H (1.3-7.7) k/uL Lymphocytes # 0.9 L (1.0-4.8) k/uL Macrocytosis Marked A PT 17.5 H (9.0-12.0) sec INR 1.8 H (<1.2) APTT 30.7 H (22.0-30.0) sec Potassium (3.5-5.1) mmol/L Chloride 108 H (98-107) mmol/L Carbon Dioxide 9 L* (22-30) mmol/L Creatinine 1.53 H (0.52-1.04) mg/dL Glucose 68 L (74-99) mg/dL POC Glucose (mg/dL) (75-99) mg/dL Plasma Lactic Acid Macario (0.7-2.0) mmol/L Calcium 8.2 L (8.4-10.2) mg/dL Total Bilirubin 18.8 H* (0.2-1.3) mg/dL Conjugated Bilirubin 9.8 H (0.0-0.3) mg/dL Unconjugated Bilirubin 2.6 H (0.0-1.1) mg/dL Delta Bilirubin 6.4 H (0.0-0.2) mg/dL AST 464 H (14-36) U/L ALT 92 H (4-34) U/L Alkaline Phosphatase 234 H (38-126) U/L Ammonia (<30) umol/L Creatine Kinase 1060 H* (30-135) U/L Total Protein (6.3-8.2) g/dL Albumin 3.2 L (3.5-5.0) g/dL Lipase 739 H (23-300) U/L Urine Appearance (Clear) Urine Protein (Negative) Urine Ketones (Negative) Urine Blood (Negative) Urine Bilirubin (Negative) Urine RBC (0-5) /hpf Ur Squamous Epith Cells (0-4) /hpf Urine Bacteria (None) /hpf Hyaline Casts (0-2) /lpf Urine Mucus (None) /hpf Urine Yeast (Budding) (None) /hpf 02/16/19 02/16/19 02/16/19 Range/Units 18:43 19:09 23:19 WBC (3.8-10.6) k/uL RBC (3.80-5.40) m/uL Hgb (11.4-16.0) gm/dL Hct (34.0-46.0) % MCV (80.0-100.0) fL MCH (25.0-35.0) pg RDW (11.5-15.5) % Neutrophils # (1.3-7.7) k/uL Lymphocytes # (1.0-4.8) k/uL Macrocytosis PT (9.0-12.0) sec INR (<1.2) APTT (22.0-30.0) sec Potassium (3.5-5.1) mmol/L Chloride (98-107) mmol/L Carbon Dioxide (22-30) mmol/L Creatinine (0.52-1.04) mg/dL Glucose (74-99) mg/dL POC Glucose (mg/dL) 180 H (75-99) mg/dL Plasma Lactic Acid Macario 10.8 H* (0.7-2.0) mmol/L Calcium (8.4-10.2) mg/dL Total Bilirubin (0.2-1.3) mg/dL Conjugated Bilirubin (0.0-0.3) mg/dL Unconjugated Bilirubin (0.0-1.1) mg/dL Delta Bilirubin (0.0-0.2) mg/dL AST (14-36) U/L ALT (4-34) U/L Alkaline Phosphatase (38-126) U/L Ammonia 160 H (<30) umol/L Creatine Kinase (30-135) U/L Total Protein (6.3-8.2) g/dL Albumin (3.5-5.0) g/dL Lipase (23-300) U/L Urine Appearance Turbid H (Clear) Urine Protein Trace H (Negative) Urine Ketones Trace H (Negative) Urine Blood Small H (Negative) Urine Bilirubin 3+ H (Negative) Urine RBC 9 H (0-5) /hpf Ur Squamous Epith Cells 13 H (0-4) /hpf Urine Bacteria Few H (None) /hpf Hyaline Casts 36 H (0-2) /lpf Urine Mucus Few H (None) /hpf Urine Yeast (Budding) Many H (None) /hpf 02/16/19 02/17/19 02/17/19 Range/Units 23:29 04:15 04:15 WBC 12.9 H (3.8-10.6) k/uL RBC 2.26 L (3.80-5.40) m/uL Hgb 9.1 L D (11.4-16.0) gm/dL Hct 27.6 L (34.0-46.0) % MCV 121.8 H (80.0-100.0) fL MCH 40.1 H (25.0-35.0) pg RDW 15.9 H (11.5-15.5) % Neutrophils # 11.4 H (1.3-7.7) k/uL Lymphocytes # 0.8 L (1.0-4.8) k/uL Macrocytosis Marked A PT (9.0-12.0) sec INR (<1.2) APTT (22.0-30.0) sec Potassium 3.0 L (3.5-5.1) mmol/L Chloride 114 H (98-107) mmol/L Carbon Dioxide 15 L (22-30) mmol/L Creatinine 1.37 H (0.52-1.04) mg/dL Glucose 155 H (74-99) mg/dL POC Glucose (mg/dL) (75-99) mg/dL Plasma Lactic Acid Macario 7.3 H* (0.7-2.0) mmol/L Calcium 6.9 L (8.4-10.2) mg/dL Total Bilirubin 15.5 H* (0.2-1.3) mg/dL Conjugated Bilirubin (0.0-0.3) mg/dL Unconjugated Bilirubin (0.0-1.1) mg/dL Delta Bilirubin (0.0-0.2) mg/dL AST 380 H (14-36) U/L ALT 77 H (4-34) U/L Alkaline Phosphatase 168 H (38-126) U/L Ammonia (<30) umol/L Creatine Kinase 1165 H* (30-135) U/L Total Protein 5.3 L (6.3-8.2) g/dL Albumin 2.3 L (3.5-5.0) g/dL Lipase (23-300) U/L Urine Appearance (Clear) Urine Protein (Negative) Urine Ketones (Negative) Urine Blood (Negative) Urine Bilirubin (Negative) Urine RBC (0-5) /hpf Ur Squamous Epith Cells (0-4) /hpf Urine Bacteria (None) /hpf Hyaline Casts (0-2) /lpf Urine Mucus (None) /hpf Urine Yeast (Budding) (None) /hpf 02/17/19 02/17/19 02/17/19 Range/Units 04:15 04:15 07:53 WBC (3.8-10.6) k/uL RBC (3.80-5.40) m/uL Hgb (11.4-16.0) gm/dL Hct (34.0-46.0) % MCV (80.0-100.0) fL MCH (25.0-35.0) pg RDW (11.5-15.5) % Neutrophils # (1.3-7.7) k/uL Lymphocytes # (1.0-4.8) k/uL Macrocytosis PT (9.0-12.0) sec INR (<1.2) APTT (22.0-30.0) sec Potassium (3.5-5.1) mmol/L Chloride (98-107) mmol/L Carbon Dioxide (22-30) mmol/L Creatinine (0.52-1.04) mg/dL Glucose (74-99) mg/dL POC Glucose (mg/dL) (75-99) mg/dL Plasma Lactic Acid Macario 3.7 H* 2.5 H* (0.7-2.0) mmol/L Calcium (8.4-10.2) mg/dL Total Bilirubin (0.2-1.3) mg/dL Conjugated Bilirubin (0.0-0.3) mg/dL Unconjugated Bilirubin (0.0-1.1) mg/dL Delta Bilirubin (0.0-0.2) mg/dL AST (14-36) U/L ALT (4-34) U/L Alkaline Phosphatase (38-126) U/L Ammonia 86 H (<30) umol/L Creatine Kinase (30-135) U/L Total Protein (6.3-8.2) g/dL Albumin (3.5-5.0) g/dL Lipase (23-300) U/L Urine Appearance (Clear) Urine Protein (Negative) Urine Ketones (Negative) Urine Blood (Negative) Urine Bilirubin (Negative) Urine RBC (0-5) /hpf Ur Squamous Epith Cells (0-4) /hpf Urine Bacteria (None) /hpf Hyaline Casts (0-2) /lpf Urine Mucus (None) /hpf Urine Yeast (Budding) (None) /hpf CT scan - abdomen: report reviewed (Computed tomography scan of the abdomen significant for mild ascites, diverticulosis and right colonic wall thickening) Assessment and Plan (1) Alcoholic hepatitis with ascites Narrative/Plan: 58-year-old female with a medical history significant for alcohol abuse who presented to the hospital after being found passed out in her residence. Patient has mildly elevated liver enzymes consistent with alcoholic hepatitis. Currently receiving supportive care in the intensive care unit. Current Visit: Yes Status: Acute Code(s): K70.11 - ALCOHOLIC HEPATITIS WITH ASCITES SNOMED Code(s): 8747387801299842 (2) Hepatic encephalopathy Current Visit: Yes Status: Acute Code(s): K72.90 - HEPATIC FAILURE, UNSPECIFIED WITHOUT COMA SNOMED Code(s): 58786122 (3) Hyperammonemia Current Visit: Yes Status: Acute Code(s): E72.20 - DISORDER OF UREA CYCLE METABOLISM, UNSPECIFIED SNOMED Code(s): 7320471 (4) Transaminitis Current Visit: Yes Status: Acute Code(s): R74.0 - NONSPEC ELEV OF LEVELS OF TRANSAMNS & LACTIC ACID DEHYDRGNSE SNOMED Code(s): 913288567 Plan: Supportive care Continue vitamin and mineral supplementation Continue to monitor CBC, CMP Continue lactulose 3 times a day, patient is unable to take orally can consider NG or OG tube for administration of medication or lactulose suppositories this is not possible Alcohol abstinence Need to monitor clinically/patient's mentation Thank you for allowing us to participate in the care of the patient
[2019-02-18 11:35] LABS: Glucose,Whole Blood 120 mg/dL (75-99)
[2019-02-18 13:04] LABS: Ceruloplasmin 19.4 mg/dL (20.0-60.0)
[2019-02-18 17:12] LABS: Glucose,Whole Blood 109 mg/dL (75-99)
--- NOTE | 2019-02-18 20:43 | PN ---
PROGRESS NOTE This is a 58-year-old white female who is not moaning anymore, arouses to loud stimuli but drifts off easily. Still has elevated ammonia level, but is improving, down from 86 to 79. CK is down from 1200 to 485. Continues on lactulose, thiamine and Zosyn. She is hemodynamically stable. Sats are in the mid 90s on room air. She is less jaundiced. Temp 98.5, pulse is 86, respiratory 12-14, blood pressure 102/65, O2 saturation 99. HEENT: Normocephalic, atraumatic. Pupils equal, round, react to light and accommodation. External ear canals within normal limits. CHEST: No chest wall deformity. LUNGS: No rales, rhonchi or wheeze. ABDOMEN: Soft, nontender. Positive fluid wave. INTEGUMENT: Shows some dry skin, but is improved. EXTREMITIES: Peripheral pulses are intact. No peripheral edema. White count 9.5, hemoglobin 9.4, sodium 143, potassium 3.3, BUN of 20, creatinine 1.4. TIBC is 175, saturation of iron is 63, ferritin 2067, potassium 3.3, BUN is 20, creatinine is 1.3, albumin is low. ASSESSMENT: 1. Altered mental status secondary to hepatic encephalopathy and hyperammonemia which is improving. 2. Alcohol abuse. 3. Alcoholic liver disease. 4. Cirrhosis. 5. Elevated ammonia. 6. Abdominal ascites. 7. Coagulopathy due to alcohol abuse. 8. Acute tubular necrosis and acute renal insufficiency secondary to possible rhabdomyolysis which is improving. 9. Elevated LFTs trending down. 10.Anemia, stable. Continue on lactulose for hyperammonemia. Continue on IV antibiotics. Fluid rehydration. Monitor her, she continues to be improving on a daily basis. Hopefully, she will wake and be more alert over the next couple days. MMODL / IJN: [id number] /
[2019-02-19] MEDS: HEPARIN SODIUM,PORCINE 5,000 UNIT/ML 1 ML VIAL SQ SCH ×3 (00:12→15:11)
[2019-02-19] MEDS: PIPERACILLIN-TAZOBACTAM 3.375 GM in SODIUM CHLORIDE 0.9% 100 ML IVPB SCH ×3 (04:12→20:20)
[2019-02-19] MEDS: SODIUM CHLORIDE 0.9% 1,000 ML IV SCH (04:13)
[2019-02-19 05:28] LABS: Basophils % (A) 0 %; Eosinophils # (A) 0.1 k/uL (0-0.7); Eosinophils % (A) 1 %; HCT 31.3 % (34.0-46.0); HGB 9.9 gm/dL (11.4-16.0); Hypochromasia Moderate; Lymphocytes # (A) 1.2 k/uL (1.0-4.8); Lymphocytes % (A) 12 %; MCH 40.2 pg (25.0-35.0); MCHC 31.7 g/dL (31.0-37.0); MCV 126.8 fL (80.0-100.0); Macrocytosis Marked; Mean Platelet Volume 10.3; Monocytes # (A) 0.3 k/uL (0-1.0); Monocytes % (A) 3 %; Neutrophils # (A) 8.2 k/uL (1.3-7.7); Neutrophils % (A) 83 %; Platelet Count 145 k/uL (150-450); RBC 2.47 m/uL (3.80-5.40); RDW 15.9 % (11.5-15.5); WBC 9.9 k/uL (3.8-10.6)
[2019-02-19 05:40] LABS: Albumin 2.3 g/dL (3.5-5.0); Calcium 7.9 mg/dL (8.4-10.2); Potassium 3.6 mmol/L (3.5-5.1); Total Bilirubin 14.6 mg/dL (0.2-1.3); Total Protein 5.4 g/dL (6.3-8.2)
[2019-02-19] MEDS ORDERED: Potassium Replacement Protocol 1 EACH MISC MISCELLANE PRN (05:58)
[2019-02-19] MEDS: POTASSIUM CHLORIDE 10 MEQ in WATER FOR INJECTION 1 100ML.BAG IVPB SCH ×2 (06:16→07:21)
[2019-02-19] MEDS: THIAMINE 100 MG/ML 2 ML VIAL IVP SCH (08:00)
[2019-02-19] MEDS: PANTOPRAZOLE 40 MG/10 ML VIAL IV SCH (08:00)
[2019-02-19] MEDS: LACTULOSE 20 GM/30 ML CUP PO SCH ×3 (08:01→21:51)
[2019-02-19] MEDS: DEXTROSE 5% IN WATER 1,000 ML IV SCH ×3 (08:07→20:20)
--- NOTE | 2019-02-19 08:37 | P.PN ---
Subjective Progress Note Date: 02/19/19 Principal diagnosis: Altered mental status secondary to suspected hepatic encephalopathy and hyper ammonia anemia secondary to severe alcohol abuse and cirrhosis The patient is seen today 02/18/2019 in follow-up in the intensive care unit. She arouses to loud verbal stimuli but drifts off easily. Not following any simple commands. She's been maintaining O2 saturation in the 90s on room air. She's been afebrile. Hemodynamically stable. She has 0.9 normal saline at 150 MLS per hour. Blood cultures reveal no growth. White count 9.5. Hemoglobin 9.4. Platelet count 144,000. Sodium 143. Potassium 3.3. Chloride 121. Bicarb 14. Creatinine 1.40. AST 265, ALT 85, alk phos 160. Albumin 2.1. Lipase 734. Ammonia has improved to 79. CK 485. She is concerned unit on lactulose, thiamine, Zosyn. Electrolytes being replaced. The patient is seen today 02/19/2019 in follow-up in the intensive care unit. She is more easily arousable today but again drifts off easily. She continues to maintain O2 saturations in the 90s on room air. She has a 0.9 normal saline at 150 ML's per hour. Blood culture reveals no growth. White count 9.9. Hemoglobin 9.9. MCV 126.8. Sodium 150. Potassium 3.9. Chloride 129. Bicarb 12. Creatinine 1.35. AST 199. ALT 84. Alk phos 172. Ammonia 56. She is continued on Zosyn, IV Protonix, thiamine, lactulose. She is on heparin for DVT prophylaxis. Objective - Vital Signs Vital signs: Vital Signs Temp 98.3 F 02/19/19 08:00 Pulse 96 02/19/19 08:00 Resp 22 02/19/19 08:00 BP 140/78 02/19/19 08:00 Pulse Ox 95 02/19/19 08:00 Intake & Output 02/18/19 02/19/19 02/19/19 18:59 06:59 18:59 Intake Total 2029 1900 330 Output Total 242 286 55 Balance 1788 1614 275 Weight 61.8 kg Intake: IV 1950 1900 250 Piperacillin-Tazobactam 3 200 .375 gm In Sodium Chloride 0.9% 100 ml @ 25 mls/hr IVPB Q8H [facility] Rx#: [id number] Potassium Chloride 10 meq 300 In Water For Injection 1 100ml.bag @ 100 mls/hr IVPB Q1HR [facility] Rx#: [id number] Potassium Chloride 10 meq 100 100 100 In Water For Injection 1 100ml.bag @ 100 mls/hr IVPB Q1HR [facility] Rx#: [id number] Sodium Chloride 0.9% 1, 1350 1800 150 000 ml @ 150 mls/hr IV . Q6H40M [facility] Rx#:[id number] Other 80 80 Output: Urine 240 285 55 Stool 2 1 Other: Voiding Method Indwelling Catheter Indwelling Catheter Indwelling Catheter - Exam GENERAL EXAM: Lethargic, jaundiced 58-year-old female patient, appears older than stated age. On room air, in no apparent distress. HEAD: Normocephalic. EYES: Normal reaction of pupils, equal size. Sclera anicteric. NOSE: Clear with pink turbinates. THROAT: No erythema or exudates. NECK: No masses, no JVD. CHEST: No chest wall deformity. LUNGS: Equal air entry with no crackles, wheeze, rhonchi or dullness. CVS: S1 and S2 normal with no audible murmur, regular rhythm. ABDOMEN: No hepatosplenomegaly, normal bowel sounds, no guarding or rigidity. SPINE: No scoliosis or deformity SKIN: No rashes CENTRAL NERVOUS SYSTEM: Lethargic, tone is normal in all 4 extremities. EXTREMITIES: There is no peripheral edema. No clubbing, no cyanosis. Periph eral pulses are intact. - Labs CBC & Chem 7: 02/19/19 04:46 02/19/19 04:46 Labs: Abnormal Lab Results - Last 24 Hours (Table) 02/17/19 02/18/19 02/18/19 Range/Units 11:51 11:33 17:10 RBC (3.80-5.40) m/uL Hgb (11.4-16.0) gm/dL Hct (34.0-46.0) % MCV (80.0-100.0) fL MCH (25.0-35.0) pg RDW (11.5-15.5) % Plt Count (150-450) k/uL Neutrophils # (1.3-7.7) k/uL Macrocytosis Sodium (137-145) mmol/L Chloride (98-107) mmol/L Carbon Dioxide (22-30) mmol/L BUN (7-17) mg/dL Creatinine (0.52-1.04) mg/dL POC Glucose (mg/dL) 120 H 109 H (75-99) mg/dL Calcium (8.4-10.2) mg/dL Total Bilirubin (0.2-1.3) mg/dL AST (14-36) U/L ALT (4-34) U/L Alkaline Phosphatase (38-126) U/L Ammonia (<30) umol/L Total Protein (6.3-8.2) g/dL Albumin (3.5-5.0) g/dL Ceruloplasmin 19.4 L (20.0-60.0) mg/dL 02/19/19 02/19/19 02/19/19 Range/Units 04:46 04:46 04:46 RBC 2.47 L (3.80-5.40) m/uL Hgb 9.9 L (11.4-16.0) gm/dL Hct 31.3 L (34.0-46.0) % MCV 126.8 H (80.0-100.0) fL MCH 40.2 H (25.0-35.0) pg RDW 15.9 H (11.5-15.5) % Plt Count 145 L (150-450) k/uL Neutrophils # 8.2 H (1.3-7.7) k/uL Macrocytosis Marked A Sodium 150 H (137-145) mmol/L Chloride 129 H (98-107) mmol/L Carbon Dioxide 12 L (22-30) mmol/L BUN 23 H (7-17) mg/dL Creatinine 1.35 H (0.52-1.04) mg/dL POC Glucose (mg/dL) (75-99) mg/dL Calcium 7.9 L (8.4-10.2) mg/dL Total Bilirubin 14.6 H (0.2-1.3) mg/dL AST 199 H (14-36) U/L ALT 84 H (4-34) U/L Alkaline Phosphatase 172 H (38-126) U/L Ammonia 56 H (<30) umol/L Total Protein 5.4 L (6.3-8.2) g/dL Albumin 2.3 L (3.5-5.0) g/dL Ceruloplasmin (20.0-60.0) mg/dL Microbiology - Last 24 Hours (Table) 02/16/19 18:43 Blood Culture - Preliminary Blood No Growth after 48 hours Assessment and Plan Assessment: 1 Altered mental status secondary to hepatic encephalopathy and hyperammonemia 2 Severe alcohol abuse with alcoholic liver disease and cirrhosis 3 Elevated ammonia levels causing mental status changes, trending down 4 Abdominal ascites 5 Coagulopathy of alcohol abuse 6 Anemia 7 Elevated LFTs, trending down 8 Alcoholic pancreatitis with elevated lipase Plan: The patient was seen and evaluated by Dr. Arrieta. More easily arousable today. Still drifts off easily. Ammonia level continues to improve. Down to 56. We will discontinue the 0.9 normal saline and utilize D5W at 150 MLS per hour. She'll require approximately 2.59 L to correct her sodium. We'll continue the current treatment plan. Her overall prognosis is quite guarded and poor. We will continue to monitor her here closely in the intensive care unit. We'll continue to follow. I, the cosigning physician, performed a history & physical examination of the patient. Lungs sounds are clear. Maintaining good O2 saturations in the 90s on room air. I discussed the assessment and plan of care with my nurse pract Cindi nunez. I attest to the above note as dictated by her.
[2019-02-19 11:45] LABS: Glucose,Whole Blood 155 mg/dL (75-99)
[2019-02-19] MEDS: INSULIN ASPART (NovoLOG) 100 UNIT/ML VIAL SQ SCH ×2 (12:04→17:23)
--- NOTE | 2019-02-19 15:47 | PN ---
PROGRESS NOTE A 58-year-old white female admitted with altered mental status, hepatic encephalopathy, hyperammonia level secondary to alcohol abuse, cirrhosis. Her liver enzymes are all improving. Her ammonia level went from 86 down to 49 today. She is more arousable. She is drifting off. She has an NG tube, O2 90 on room air. She continues on IV fluids. Blood cultures are negative. White count is 9.9, hemoglobin is 9.9, sodium 150, potassium 3.9, bicarb 12, creatinine 1.35. Ammonia 56. She is on Zosyn, Protonix, with lactulose and thiamin. Temp 98.3, pulse 90 to 96, respiratory 18-22, blood pressure 140/78. Cardiovascular S1, S2. Lungs are decreased breath sounds. Integument: Jaundice is decreasing. GI she has distended abdomen, fluid wave. Extremities: No edema. Peripheral pulses intact. HEENT normocephalic, atraumatic. Sodium 150, potassium 3.6, BUN 23, creatinine 1.35. ASSESSMENT: 1. Altered mental status secondary to hepatic encephalopathy. 2. Elevated ammonia levels, improving. 3. Severe alcohol abuse with alcoholic liver disease, cirrhosis. 4. Abdominal ascites. 5. Coagulopathy. 6. Anemia. 7. Alcoholic pancreatitis. 8. Elevated lipase. She is improving from all labs are improved. Ammonia is 56 today. Continue on normal saline. They are going to add some sugar to the water at 150 an hour. Prognosis is guarded and poor. Continue current therapy. Current therapy. Follow up in the next 24 to 48 hours. MMODL / IJN: [id number] /
[2019-02-19 17:17] LABS: Glucose,Whole Blood 156 mg/dL (75-99)
[2019-02-19 17:37] LABS: Glucose,Whole Blood 162 mg/dL (75-99)
[2019-02-20] MEDS: HEPARIN SODIUM,PORCINE 5,000 UNIT/ML 1 ML VIAL SQ SCH ×3 (00:14→16:32)
[2019-02-20] MEDS: INSULIN ASPART (NovoLOG) 100 UNIT/ML VIAL SQ SCH ×4 (00:16→17:26)
[2019-02-20 00:18] LABS: Glucose,Whole Blood 175 mg/dL (75-99)
[2019-02-20] MEDS: PIPERACILLIN-TAZOBACTAM 3.375 GM in SODIUM CHLORIDE 0.9% 100 ML IVPB SCH ×3 (05:08→22:20)
[2019-02-20] MEDS: DEXTROSE 5% IN WATER 1,000 ML IV SCH ×2 (05:08→11:31)
[2019-02-20 05:18] LABS: Basophils # (A) 0.1 k/uL (0-0.2); Basophils % (A) 1 %; Eosinophils # (A) 0.1 k/uL (0-0.7); Eosinophils % (A) 1 %; HGB 10.1 gm/dL (11.4-16.0); Hypochromasia Moderate; Lymphocytes # (A) 1.4 k/uL (1.0-4.8); Lymphocytes % (A) 13 %; MCH 39.8 pg (25.0-35.0); MCHC 31.5 g/dL (31.0-37.0); MCV 126.6 fL (80.0-100.0); Mean Platelet Volume 10.6; Monocytes # (A) 0.4 k/uL (0-1.0); Monocytes % (A) 4 %; Neutrophils # (A) 8.3 k/uL (1.3-7.7); Neutrophils % (A) 79 %; Platelet Count 108 k/uL (150-450); RBC 2.53 m/uL (3.80-5.40); RDW 15.8 % (11.5-15.5); WBC 10.5 k/uL (3.8-10.6)
[2019-02-20 05:20] LABS: Macrocytosis Marked
[2019-02-20 05:25] LABS: Albumin 2.4 g/dL (3.5-5.0); Calcium 7.9 mg/dL (8.4-10.2); Total Bilirubin 14.6 mg/dL (0.2-1.3); Total Protein 5.9 g/dL (6.3-8.2)
[2019-02-20 05:35] LABS: Potassium 3.9 mmol/L (3.5-5.1)
[2019-02-20] MEDS ORDERED: Potassium Replacement Protocol 1 EACH MISC MISCELLANE PRN (06:16)
[2019-02-20] MEDS ORDERED: POTASSIUM BICARBONATE/CIT AC 20 MEQ TABLET.EFF NG-TUBE SCH (07:00)
[2019-02-20] MEDS: PANTOPRAZOLE 40 MG/10 ML VIAL IV SCH (08:15)
[2019-02-20] MEDS: LACTULOSE 20 GM/30 ML CUP PO SCH ×3 (08:15→22:21)
[2019-02-20] MEDS: THIAMINE 100 MG/ML 2 ML VIAL IVP SCH (08:17)
[2019-02-20 11:35] LABS: Glucose,Whole Blood 150 mg/dL (75-99)
--- NOTE | 2019-02-20 11:56 | P.PN ---
Subjective Progress Note Date: 02/20/19 Principal diagnosis: Altered mental status secondary to suspected hepatic encephalopathy and hyperammonemia On 02/20/2019 patient is seen in follow-up in intensive care unit, she is still quite obtunded, withdraws from noxious stimuli sluggishly, vital signs are stable, room air pulse ox is 97%, hemodynamically patient is stable, in sinus mechanism with a rate of 86 BPM, blood pressures 133/79, today's labs have been reviewed showing increase in ammonia level up to 111, patient remains on lactulose at 30 g 3 times a day via the NG tube, she is also receiving nutrition with a viral high-protein at a rate of 50 with a goal of 50 with standard water flushes, on yesterday's labs patient was noted to be hyper nature ischemic, she remains on D5W infusion at a rate of 150 ML per hour, and today's labs show improvement in the serum sodium which is down to 146 on today's labs, renal profile has slightly improved, with BUN at 23, and creatinine is 1.12, patient remains acidotic, although he did slightly improve, and CO2 on today's labs14. Liver enzymes are improving, AST down to 151, ALT is 76, and alkaline phosphatase is stable at 176. Blood culture has shown no growth. No leukocytosis, with blood cell count is 10.5, patient remains on empiric antibiotics, she has been afebrile. Gilmore catheter is in place patient is producing 2240 ML per hour of dark colored urine, FMS in place with liquid output Objective - Vital Signs Vital signs: Vital Signs Temp 97.9 F 02/20/19 08:00 Pulse 58 L 02/20/19 11:00 Resp 18 02/20/19 11:00 BP 133/93 02/20/19 11:00 Pulse Ox 97 02/20/19 11:00 Intake & Output 02/19/19 02/20/19 02/20/19 18:59 06:59 18:59 Intake Total 2170 2540 880 Output Total 1262 300 105 Balance 908 2240 775 Weight 61.8 kg 63.7 kg Intake: IV 1850 1950 600 Dextrose 5% in Water 1, 1500 1950 600 000 ml @ 150 mls/hr IV . Q6H40M [facility] Rx#:[id number] Piperacillin-Tazobactam 3 100 .375 gm In Sodium Chloride 0.9% 100 ml @ 25 mls/hr IVPB Q8H [facility] Rx#: [id number] Potassium Chloride 10 meq 100 In Water For Injection 1 100ml.bag @ 100 mls/hr IVPB Q1HR [facility] Rx#: [id number] Sodium Chloride 0.9% 1, 150 000 ml @ 150 mls/hr IV . Q6H40M [facility] Rx#:[id number] Tube Feeding 180 500 280 Other 140 90 Output: Urine 262 300 105 Stool 1000 Other: Voiding Method Indwelling Catheter Indwelling Catheter Indwelling Catheter # Bowel Movements 1 - Exam GENERAL EXAM: Obtunded, 58-year-old female, jaundiced, sluggishly withdraws from noxious stimuli HEAD: Normocephalic/atraumatic. EYES: Normal reaction of pupils, equal size. Conjunctiva pink, sclera white. NOSE: Clear with pink turbinates. NG tube is in place with the tube feedings infusing at a rate of 50 with a goal of 50 of vital AF THROAT: No erythema or exudates. NECK: No masses, no JVD, no thyroid enlargement, no adenopathy. CHEST: No chest wall deformity. Symmetrical expansion. LUNGS: Equal air entry with no crackles, wheeze, rhonchi or dullness. CVS: Regular rate and rhythm, normal S1 and S2, no gallops, no murmurs, no rubs ABDOMEN: Firm, nontender. No hepatosplenomegaly, sluggish bowel sounds, no guarding or rigidity. EXTREMITIES: No clubbing, no edema, no cyanosis, 2+ pulses and upper and lower extremities. MUSCULOSKELETAL: Muscle strength and tone normal. SPINE: No scoliosis or deformity SKIN: No rashes CENTRAL NERVOUS SYSTEM: Obtunded, does not verbally respond. No focal deficits, tone is normal in all 4 extremities. - Labs CBC & Chem 7: 02/20/19 04:47 02/20/19 04:47 Labs: Abnormal Lab Results - Last 24 Hours (Table) 02/19/19 02/19/19 02/19/19 Range/Units 11:44 17:16 17:36 RBC (3.80-5.40) m/uL Hgb (11.4-16.0) gm/dL Hct (34.0-46.0) % MCV (80.0-100.0) fL MCH (25.0-35.0) pg RDW (11.5-15.5) % Plt Count (150-450) k/uL Neutrophils # (1.3-7.7) k/uL Macrocytosis Sodium (137-145) mmol/L Chloride (98-107) mmol/L Carbon Dioxide (22-30) mmol/L BUN (7-17) mg/dL Creatinine (0.52-1.04) mg/dL Glucose (74-99) mg/dL POC Glucose (mg/dL) 155 H 156 H 162 H (75-99) mg/dL Calcium (8.4-10.2) mg/dL Total Bilirubin (0.2-1.3) mg/dL AST (14-36) U/L ALT (4-34) U/L Alkaline Phosphatase (38-126) U/L Ammonia (<30) umol/L Total Protein (6.3-8.2) g/dL Albumin (3.5-5.0) g/dL 02/20/19 02/20/19 02/20/19 Range/Units 00:16 04:47 04:47 RBC 2.53 L (3.80-5.40) m/uL Hgb 10.1 L (11.4-16.0) gm/dL Hct 32.0 L (34.0-46.0) % MCV 126.6 H (80.0-100.0) fL MCH 39.8 H (25.0-35.0) pg RDW 15.8 H (11.5-15.5) % Plt Count 108 L (150-450) k/uL Neutrophils # 8.3 H (1.3-7.7) k/uL Macrocytosis Marked A Sodium 146 H (137-145) mmol/L Chloride 124 H (98-107) mmol/L Carbon Dioxide 14 L (22-30) mmol/L BUN 23 H (7-17) mg/dL Creatinine 1.12 H (0.52-1.04) mg/dL Glucose 140 H (74-99) mg/dL POC Glucose (mg/dL) 175 H (75-99) mg/dL Calcium 7.9 L (8.4-10.2) mg/dL Total Bilirubin 14.6 H (0.2-1.3) mg/dL AST 151 H (14-36) U/L ALT 76 H (4-34) U/L Alkaline Phosphatase 176 H (38-126) U/L Ammonia (<30) umol/L Total Protein 5.9 L (6.3-8.2) g/dL Albumin 2.4 L (3.5-5.0) g/dL 02/20/19 02/20/19 Range/Units 04:47 11:34 RBC (3.80-5.40) m/uL Hgb (11.4-16.0) gm/dL Hct (34.0-46.0) % MCV (80.0-100.0) fL MCH (25.0-35.0) pg RDW (11.5-15.5) % Plt Count (150-450) k/uL Neutrophils # (1.3-7.7) k/uL Macrocytosis Sodium (137-145) mmol/L Chloride (98-107) mmol/L Carbon Dioxide (22-30) mmol/L BUN (7-17) mg/dL Creatinine (0.52-1.04) mg/dL Glucose (74-99) mg/dL POC Glucose (mg/dL) 150 H (75-99) mg/dL Calcium (8.4-10.2) mg/dL Total Bilirubin (0.2-1.3) mg/dL AST (14-36) U/L ALT (4-34) U/L Alkaline Phosphatase (38-126) U/L Ammonia 111 H (<30) umol/L Total Protein (6.3-8.2) g/dL Albumin (3.5-5.0) g/dL Microbiology - Last 24 Hours (Table) 02/16/19 18:43 Blood Culture - Preliminary Blood No Growth after 72 hours Assessment and Plan Plan: Assessment: #1. Altered mental status secondary to hepatic encephalopathy and hyperammonemia #2. Severe alcohol abuse with alcoholic liver disease and cirrhosis #3. Elevated ammonia levels causing mental status changes, on lactulose #4. Abdominal ascites #5. Coagulopathy of alcohol abuse #6. Anemia #7. Elevated transaminases, trending down #8. Alcoholic pancreatitis with elevated lipase #9. Acute kidney injury #10. Hypernatremia improving Plan: Continue current medical treatment, start the patient on Xifaxan in addition to lactulose. Continue supportive treatment, mentation remains obtunded, maintain aspiration precautions, continue with NG tube feedings, continue GI and DVT prophylaxis, and lactic antibiotics. Will add bicarbonates in the IV fluids. Recheck coagulation profile, repeat labs tomorrow, patient will remain in the intensive care unit prognosis is guarded I performed a history & physical examination of the patient and discussed their management with my nurse practitioner, Chelsie Walsh. I reviewed the nurse practitioner's note and agree with the documented findings and plan of care. Lung sounds are positive for diminished pressors. The findings and the impression was discussed with the patient. I attest to the documentation by the nurse practitioner. Time with Patient: Less than 30
[2019-02-20 12:47] LABS: INR 1.6 (<1.2); Partial Thromboplastin Time 31.6 sec (22.0-30.0)
[2019-02-20] MEDS: DEXTROSE 5% IN WATER 1,000 ML with SODIUM BICARB (1 MEQ/ML) 150 ML IV SCH (12:50)
[2019-02-20 13:11] LABS: Albumin 2.69 g/dL (3.80-4.90); Gamma Globulin 1.1 g/dL (0.70-1.50)
[2019-02-20] MEDS: RIFAXIMIN 550 MG TABLET PO SCH ×2 (13:41→22:21)
[2019-02-20 13:43] LABS: Liver/Kidney Microsome Antibod 1.2 UNITS (<=20)
--- NOTE | 2019-02-20 14:12 | PN ---
PROGRESS NOTE DATE OF DICTATION: 02/20/2019 REQUESTING PHYSICIAN: Dr. Hudson. REASON FOR CONSULTATION: Hepatic encephalopathy and alcoholic liver disease. HISTORY OF PRESENT ILLNESS: The patient is a 58-year-old white female admitted to the hospital with altered mental status about 4 days ago. The patient remains in the intensive care unit, still remains obtunded. She has been on oral lactulose and has an in place and has been having soft to loose bowel movements daily. Overall, her mental status has not significantly changed for the last 4 days. She was just started on oral Xifaxan 550 mg twice daily this morning. No family available at the bedside. PHYSICAL EXAMINATION: She remains obtunded. VITAL SIGNS: Stable. Blood pressure is 136/88, pulse rate 89, temperature 98. HEENT: Examination unremarkable. Conjunctivae are pink. Sclerae nonicteric. Oral cavity no lesions. NECK: No JVD or lymph node enlargement. CHEST: Clear to auscultation. HEART: Regular rate and rhythm. ABDOMEN: Distended. There was a significant amount of fluid noted. He was slightly tender diffusely. EXTREMITIES: No pedal edema. SKIN: No rashes. NEURO: She is obtunded. LABS: From today show a WBC of 10.5, hemoglobin 10.1, platelets 108, INR 1.6. BUN is 23, creatinine 1.12, bilirubin 14.6, AST 151, ALT 76, alkaline phosphatase 176, albumin is 2.4. IMPRESSION: 1. Hepatic encephalopathy. Presently on oral Xifaxan as well as oral lactulose, continues to remain obtunded. 2. Abdominal distention secondary to ascites. Ultrasound done at the time of admission to the hospital did show minimal ascites, but clinically it appears the patient has significant ascites and at this time because of persistent altered mental status, possibility of spontaneous bacterial peritonitis needs to be excluded. 3. Questionable aspiration pneumonia for which patient is on Zosyn. 4. Acute alcoholic hepatitis with elevated bilirubin as well as AST more than ALT, consistent with severe alcoholic liver disease/acute alcoholic hepatitis. 5. Mild coagulopathy secondary to underlying liver disease. 6. History of heavy alcohol abuse. RECOMMENDATIONS: 1. Continue with Xifaxan and lactulose. 2. Will schedule for diagnostic/therapeutic paracentesis and obtain cultures as well as cell count. 3. Monitor ammonia level on a close basis. 4. Continue with tube feeds. 5. Repeat ammonia in the morning. Thank you for this consultation. Will follow with you closely. MMODL / IJN: [id number] /
--- NOTE | 2019-02-20 15:07 | US ---
EXAMINATION TYPE: US abdomen limited DATE OF EXAM: 02/20/2019 COMPARISON: US 2019 CLINICAL HISTORY: paracentesis. Ascites check TECHNIQUE/FINDINGS: Grayscale imaging was performed of all 4 quadrants of the abdomen to evaluate for ascites only. Trace amount of ascites seen in all 4 quadrants. IMPRESSION: Trace amount of abdominal ascites, inadequate for safe paracentesis.
--- NOTE | 2019-02-20 17:19 | P.PN ---
Subjective Progress Note Date: 02/20/19 This is a 58-year-old female admitted with altered mental status secondary to hepatic encephalopathy, alcohol abuse, cirrhosis, hyperammonia and multiple other medical issues. CO2 14,on bicarb drip. Maintained on empiric antibiotics. Afebrile, normal WBC, blood cultures no growth in 72 hours. INR 1.6. T bili remains at 14.6, transaminases trending down. Ammonia 111, on lactulose. Abdominal ultrasound reporting trace amount of ascites, inadequate for paracentesis. Vital signs stable. Patient was on D5 W with improvement in sodium down to 146. Renal function improving down to 1.12. Objective - Vital Signs Vital signs: Vital Signs Temp 98.5 F 02/20/19 16:00 Pulse 97 02/20/19 16:00 Resp 17 02/20/19 16:00 BP 131/82 02/20/19 16:00 Pulse Ox 97 02/20/19 16:00 Intake & Output 02/19/19 02/20/19 02/20/19 18:59 06:59 18:59 Intake Total 2170 2540 1935 Output Total 1262 300 260 Balance 908 2240 1675 Weight 61.8 kg 63.7 kg Intake: IV 1850 1950 1225 Dextrose 5% in Water 1, 1500 1950 900 000 ml @ 150 mls/hr IV . Q6H40M [facility] Rx#:[id number] Dextrose 5% in Water 1, 225 000 ml @ 75 mls/hr IV . [id number] [facility] with Sodium Bicarb (1 Meq/ml) 150 ml Rx#:[id number] Piperacillin-Tazobactam 3 100 100 .375 gm In Sodium Chloride 0.9% 100 ml @ 25 mls/hr IVPB Q8H [facility] Rx#: [id number] Potassium Chloride 10 meq 100 In Water For Injection 1 100ml.bag @ 100 mls/hr IVPB Q1HR [facility] Rx#: [id number] Sodium Chloride 0.9% 1, 150 000 ml @ 150 mls/hr IV . Q6H40M [facility] Rx#:[id number] Tube Feeding 180 500 580 Other 140 90 130 Output: Urine 262 300 260 Stool 1000 Other: Voiding Method Indwelling Catheter Indwelling Catheter Indwelling Catheter # Bowel Movements 1 - Exam PHYSICAL EXAM: VITAL SIGNS: As above GENERAL: Obtunded ,Jaundiced, HEENT: Conjunctivae normal. eyes normal. NG tube present. NECK: No JVD. No thyroid enlargement. No LNs CARDIOVASCULAR: S1, S2 regular. No murmur RESPIRATION: Breath sounds clear, diminished in the bases. No rhonchi or crackles. No bronchial breathing. ABDOMEN: Firm, nontender . Distended, No guarding. no masses palpable. Positive ascites, No hepatosplenomegaly.Hypoactive Bowel sounds heard. LEGS: No edema. no swelling, NERVOUS SYSTEM: Does not follow commands, opens eyes occasionally to noxious stimuli Skin: no rash - Labs CBC & Chem 7: 02/20/19 04:47 02/20/19 04:47 Labs: Abnormal Lab Results - Last 24 Hours (Table) 02/17/19 02/19/19 02/19/19 Range/Units 11:51 17:16 17:36 RBC (3.80-5.40) m/uL Hgb (11.4-16.0) gm/dL Hct (34.0-46.0) % MCV (80.0-100.0) fL MCH (25.0-35.0) pg RDW (11.5-15.5) % Plt Count (150-450) k/uL Neutrophils # (1.3-7.7) k/uL Macrocytosis PT (9.0-12.0) sec INR (<1.2) APTT (22.0-30.0) sec Sodium (137-145) mmol/L Chloride (98-107) mmol/L Carbon Dioxide (22-30) mmol/L BUN (7-17) mg/dL Creatinine (0.52-1.04) mg/dL Glucose (74-99) mg/dL POC Glucose (mg/dL) 156 H 162 H (75-99) mg/dL Calcium (8.4-10.2) mg/dL Total Bilirubin (0.2-1.3) mg/dL AST (14-36) U/L ALT (4-34) U/L Alkaline Phosphatase (38-126) U/L Ammonia (<30) umol/L Total Protein (6.3-8.2) g/dL Albumin (3.5-5.0) g/dL Albumin (PEP) 2.69 L (3.80-4.90) g/dL [id number] 0.59 L (0.60-1.00) g/dL 02/20/19 02/20/19 02/20/19 Range/Units 00:16 04:47 04:47 RBC 2.53 L (3.80-5.40) m/uL Hgb 10.1 L (11.4-16.0) gm/dL Hct 32.0 L (34.0-46.0) % MCV 126.6 H (80.0-100.0) fL MCH 39.8 H (25.0-35.0) pg RDW 15.8 H (11.5-15.5) % Plt Count 108 L (150-450) k/uL Neutrophils # 8.3 H (1.3-7.7) k/uL Macrocytosis Marked A PT (9.0-12.0) sec INR (<1.2) APTT (22.0-30.0) sec Sodium 146 H (137-145) mmol/L Chloride 124 H (98-107) mmol/L Carbon Dioxide 14 L (22-30) mmol/L BUN 23 H (7-17) mg/dL Creatinine 1.12 H (0.52-1.04) mg/dL Glucose 140 H (74-99) mg/dL POC Glucose (mg/dL) 175 H (75-99) mg/dL Calcium 7.9 L (8.4-10.2) mg/dL Total Bilirubin 14.6 H (0.2-1.3) mg/dL AST 151 H (14-36) U/L ALT 76 H (4-34) U/L Alkaline Phosphatase 176 H (38-126) U/L Ammonia (<30) umol/L Total Protein 5.9 L (6.3-8.2) g/dL Albumin 2.4 L (3.5-5.0) g/dL Albumin (PEP) (3.80-4.90) g/dL Qnizb-1-Iivhvkrnd (0.60-1.00) g/dL 02/20/19 02/20/19 02/20/19 Range/Units 04:47 11:34 12:10 RBC (3.80-5.40) m/uL Hgb (11.4-16.0) gm/dL Hct (34.0-46.0) % MCV (80.0-100.0) fL MCH (25.0-35.0) pg RDW (11.5-15.5) % Plt Count (150-450) k/uL Neutrophils # (1.3-7.7) k/uL Macrocytosis PT 16.0 H (9.0-12.0) sec INR 1.6 H (<1.2) APTT 31.6 H (22.0-30.0) sec Sodium (137-145) mmol/L Chloride (98-107) mmol/L Carbon Dioxide (22-30) mmol/L BUN (7-17) mg/dL Creatinine (0.52-1.04) mg/dL Glucose (74-99) mg/dL POC Glucose (mg/dL) 150 H (75-99) mg/dL Calcium (8.4-10.2) mg/dL Total Bilirubin (0.2-1.3) mg/dL AST (14-36) U/L ALT (4-34) U/L Alkaline Phosphatase (38-126) U/L Ammonia 111 H (<30) umol/L Total Protein (6.3-8.2) g/dL Albumin (3.5-5.0) g/dL Albumin (PEP) (3.80-4.90) g/dL Jffrd-6-Uzitkacur (0.60-1.00) g/dL Microbiology - Last 24 Hours (Table) 02/16/19 18:43 Blood Culture - Preliminary Blood No Growth after 72 hours Assessment and Plan Assessment: Altered mental status secondary to hepatic encephalopathy and Hyperammonia Severe Alcohol abuse with alcoholic liver disease, cirrhosis Abdominal ascites Coagulopathy secondary to alcohol abuse Anemia of chronic disease Alcoholic pancreatitis Acute renal failure, improving Hypernatremia, improving Plan: Continue current medication regime ,monitoring and symptomatic treatment. Strict aspiration precautions. Continue lactulose, Xifaxan. Close monitoring of ammonia level. GI and DVT prophylaxis in place with Protonix and heparin subcu. follow closely with GI, county or city auditor. Prognosis guarded given multiple complex medical issues. The impression and plan of care has been dictated as directed. : I performed a history and examination of this patient, discussed the same with the dictator. I agree with the dictator's note ,documented as a scribe. Any additional findings or plans will be noted.
[2019-02-20 17:26] LABS: Glucose,Whole Blood 125 mg/dL (75-99)
[2019-02-20 18:07] LABS: Glucose,Whole Blood 136 mg/dL (75-99)
[2019-02-21 01:59] LABS: Glucose,Whole Blood 162 mg/dL (75-99)
[2019-02-21] MEDS: INSULIN ASPART (NovoLOG) 100 UNIT/ML VIAL SQ SCH ×5 (02:06→23:46)
[2019-02-21] MEDS: HEPARIN SODIUM,PORCINE 5,000 UNIT/ML 1 ML VIAL SQ SCH ×2 (02:07→08:30)
[2019-02-21 05:20] LABS: Glucose,Whole Blood 150 mg/dL (75-99)
[2019-02-21 05:22] LABS: Anisocytosis Slight; Basophils # (A) 0.2 k/uL (0-0.2); Basophils % (A) 1 %; Eosinophils # (A) 0.1 k/uL (0-0.7); Eosinophils % (A) 1 %; HCT 32.9 % (34.0-46.0); HGB 10.4 gm/dL (11.4-16.0); Hypochromasia Moderate; Lymphocytes # (A) 1.1 k/uL (1.0-4.8); Lymphocytes % (A) 7 %; MCH 40.1 pg (25.0-35.0); MCHC 31.7 g/dL (31.0-37.0); MCV 126.5 fL (80.0-100.0); Macrocytosis Marked; Mean Platelet Volume 10.2; Monocytes # (A) 0.9 k/uL (0-1.0); Monocytes % (A) 6 %; Neutrophils # (A) 12.7 k/uL (1.3-7.7); Neutrophils % (A) 83 %; Platelet Count 103 k/uL (150-450); RDW 16.2 % (11.5-15.5); WBC 15.3 k/uL (3.8-10.6)
[2019-02-21 05:26] LABS: Albumin 2.3 g/dL (3.5-5.0); Calcium 7.8 mg/dL (8.4-10.2); Potassium 3.1 mmol/L (3.5-5.1); Total Bilirubin 14.7 mg/dL (0.2-1.3); Total Protein 5.7 g/dL (6.3-8.2)
[2019-02-21] MEDS: DEXTROSE 5% IN WATER 1,000 ML with SODIUM BICARB (1 MEQ/ML) 150 ML IV SCH ×2 (05:31→18:29)
[2019-02-21] MEDS: PIPERACILLIN-TAZOBACTAM 3.375 GM in SODIUM CHLORIDE 0.9% 100 ML IVPB SCH ×3 (05:32→21:16)
[2019-02-21] MEDS: POTASSIUM BICARBONATE/CIT AC 20 MEQ TABLET.EFF NG-TUBE SCH ×2 (06:15→06:55)
[2019-02-21 07:41] LABS: Hemoglobin A1C 4.1
[2019-02-21] MEDS: LACTULOSE 20 GM/30 ML CUP PO SCH ×3 (08:30→21:16)
[2019-02-21] MEDS: PANTOPRAZOLE 40 MG/10 ML VIAL IV SCH (08:30)
[2019-02-21] MEDS: RIFAXIMIN 550 MG TABLET PO SCH ×2 (08:31→21:16)
[2019-02-21] MEDS: THIAMINE 100 MG/ML 2 ML VIAL IVP SCH (08:31)
--- NOTE | 2019-02-21 09:52 | P.PN ---
Subjective Progress Note Date: 02/21/19 On 02/20/2019 patient is seen in follow-up in intensive care unit, she is still quite obtunded, withdraws from noxious stimuli sluggishly, vital signs are stable, room air pulse ox is 97%, hemodynamically patient is stable, in sinus mechanism with a rate of 86 BPM, blood pressures 133/79, today's labs have been reviewed showing increase in ammonia level up to 111, patient remains on lactulose at 30 g 3 times a day via the NG tube, she is also receiving nutrition with a viral high-protein at a rate of 50 with a goal of 50 with standard water flushes, on yesterday's labs patient was noted to be hyper nature ischemic, she remains on D5W infusion at a rate of 150 ML per hour, and today's labs show i mprovement in the serum sodium which is down to 146 on today's labs, renal profile has slightly improved, with BUN at 23, and creatinine is 1.12, patient remains acidotic, although he did slightly improve, and CO2 on today's labs14. Liver enzymes are improving, AST down to 151, ALT is 76, and alkaline phosphatase is stable at 176. Blood culture has shown no growth. No leukocytosis, with blood cell count is 10.5, patient remains on empiric antibiotics, she has been afebrile. Gilmore catheter is in place patient is producing 2240 ML per hour of dark colored urine, FMS in place with liquid out put On 02/21/2019 the patient's condition essentially the same as yesterday. Still encephalopathic. Ammonia level remains high. She remains on lactulose 10 ML's 3 times a day and she has a fecal management system and she is producing adequate amount of liquidy bowel movements. Xifaxan was also added yesterday regarding the hepatitic encephalopathy. The serum ammonia level is still elevated at 107. She is having some hypokalemia with a potassium level of 3.1 related to her diarrhea and this will be replaced. She has also developed some non-anion gap metabolic acidosis related to her diarrhea. Liver function tests are still abnormal. NG tube is still in place. White cell count is at 15.3. No fever. No other significant events overnight. Blood cultures of been negative. The ultrasound of the abdomen showed some small ascites and there was inadequate fluid for paracentesis. Objective - Vital Signs Vital signs: Vital Signs Temp 96.5 F L 02/21/19 08:00 Pulse 104 H 02/21/19 09:00 Resp 18 02/21/19 09:00 BP 135/81 02/21/19 09:00 Pulse Ox 96 02/21/19 09:00 Intake & Output 02/20/19 02/21/19 02/21/19 18:59 06:59 18:59 Intake Total 2330 1800 300 Output Total 325 430 85 Balance 2004 1370 215 Weight 65.7 kg Intake: IV 1450 900 150 Dextrose 5% in Water 1, 900 000 ml @ 150 mls/hr IV . Q6H40M SUSANNA Rx#:[id number] Dextrose 5% in Water 1, 450 900 150 000 ml @ 75 mls/hr IV . [id number] SUSANNA with Sodium Bicarb (1 Meq/ml) 150 ml Rx#:[id number] Piperacillin-Tazobactam 3 100 .375 gm In Sodium Chloride 0.9% 100 ml @ 25 mls/hr IVPB Q8H SUSANNA Rx#: [id number] Tube Feeding 750 600 50 Other 130 300 100 Output: Urine 325 430 85 Other: Voiding Method Indwelling Catheter Indwelling Catheter Indwelling Catheter - Exam GENERAL EXAM: Obtunded, 58-year-old female, jaundiced, sluggishly withdraws fr om noxious stimuli, the patient remains in hepatic encephalopathy HEAD: Normocephalic/atraumatic. EYES: Normal reaction of pupils, equal size. Conjunctiva pink, sclera white. NOSE: Clear with pink turbinates. NG tube is in place with the tube feedings infusing at a rate of 50 with a goal of 50 of vital AF THROAT: No erythema or exudates. NECK: No masses, no JVD, no thyroid enlargement, no adenopathy. CHEST: No chest wall deformity. Symmetrical expansion. LUNGS: Equal air entry with no crackles, wheeze, rhonchi or dullness. CVS: Regular rate and rhythm, normal S1 and S2, no gallops, no murmurs, no rubs ABDOMEN: Firm, nontender. No hepatosplenomegaly, sluggish bowel sounds, no guarding or rigidity. EXTREMITIES: No clubbing, no edema, no cyanosis, 2+ pulses and upper and lower extremities. MUSCULOSKELETAL: Muscle strength and tone normal. SPINE: No scoliosis or deformity SKIN: No rashes CENTRAL NERVOUS SYSTEM: Obtunded, does not verbally respond. No focal deficits, tone is normal in all 4 extremities. - Labs CBC & Chem 7: 02/21/19 05:01 02/21/19 05:01 Labs: Abnormal Lab Results - Last 24 Hours (Table) 02/17/19 02/20/19 02/20/19 Range/Units 11:51 11:34 12:10 WBC (3.8-10.6) k/uL RBC (3.80-5.40) m/uL Hgb (11.4-16.0) gm/dL Hct (34.0-46.0) % MCV (80.0-100.0) fL MCH (25.0-35.0) pg RDW (11.5-15.5) % Plt Count (150-450) k/uL Neutrophils # (1.3-7.7) k/uL Macrocytosis PT 16.0 H (9.0-12.0) sec INR 1.6 H (<1.2) APTT 31.6 H (22.0-30.0) sec Potassium (3.5-5.1) mmol/L Chloride (98-107) mmol/L Carbon Dioxide (22-30) mmol/L BUN (7-17) mg/dL Glucose (74-99) mg/dL POC Glucose (mg/dL) 150 H (75-99) mg/dL Calcium (8.4-10.2) mg/dL Total Bilirubin (0.2-1.3) mg/dL AST (14-36) U/L ALT (4-34) U/L Alkaline Phosphatase (38-126) U/L Ammonia (<30) umol/L Total Protein (6.3-8.2) g/dL Albumin (3.5-5.0) g/dL Albumin (PEP) 2.69 L (3.80-4.90) g/dL Berne-4-Cmermwwrq 0.59 L (0.60-1.00) g/dL 02/20/19 02/20/19 02/21/19 Range/Units 17:25 18:06 01:58 WBC (3.8-10.6) k/uL RBC (3.80-5.40) m/uL Hgb (11.4-16.0) gm/dL Hct (34.0-46.0) % MCV (80.0-100.0) fL MCH (25.0-35.0) pg RDW (11.5-15.5) % Plt Count (150-450) k/uL Neutrophils # (1.3-7.7) k/uL Macrocytosis PT (9.0-12.0) sec INR (<1.2) APTT (22.0-30.0) sec Potassium (3.5-5.1) mmol/L Chloride (98-107) mmol/L Carbon Dioxide (22-30) mmol/L BUN (7-17) mg/dL Glucose (74-99) mg/dL POC Glucose (mg/dL) 125 H 136 H 162 H (75-99) mg/dL Calcium (8.4-10.2) mg/dL Total Bilirubin (0.2-1.3) mg/dL AST (14-36) U/L ALT (4-34) U/L Alkaline Phosphatase (38-126) U/L Ammonia (<30) umol/L Total Protein (6.3-8.2) g/dL Albumin (3.5-5.0) g/dL Albumin (PEP) (3.80-4.90) g/dL Xsmgg-8-Fiytxsbtj (0.60-1.00) g/dL 02/21/19 02/21/19 02/21/19 Range/Units 05:01 05:01 05:01 WBC 15.3 H (3.8-10.6) k/uL RBC 2.60 L (3.80-5.40) m/uL Hgb 10.4 L (11.4-16.0) gm/dL Hct 32.9 L (34.0-46.0) % MCV 126.5 H (80.0-100.0) fL MCH 40.1 H (25.0-35.0) pg RDW 16.2 H (11.5-15.5) % Plt Count 103 L (150-450) k/uL Neutrophils # 12.7 H (1.3-7.7) k/uL Macrocytosis Marked A PT (9.0-12.0) sec INR (<1.2) APTT (22.0-30.0) sec Potassium 3.1 L (3.5-5.1) mmol/L Chloride 121 H (98-107) mmol/L Carbon Dioxide 17 L (22-30) mmol/L BUN 21 H (7-17) mg/dL Glucose 140 H (74-99) mg/dL POC Glucose (mg/dL) (75-99) mg/dL Calcium 7.8 L (8.4-10.2) mg/dL Total Bilirubin 14.7 H (0.2-1.3) mg/dL AST 108 H (14-36) U/L ALT 68 H (4-34) U/L Alkaline Phosphatase 208 H (38-126) U/L Ammonia 107 H (<30) umol/L Total Protein 5.7 L (6.3-8.2) g/dL Albumin 2.3 L (3.5-5.0) g/dL Albumin (PEP) (3.80-4.90) g/dL Bogfd-7-Snjyphinm (0.60-1.00) g/dL 02/21/19 Range/Units 05:19 WBC (3.8-10.6) k/uL RBC (3.80-5.40) m/uL Hgb (11.4-16.0) gm/dL Hct (34.0-46.0) % MCV (80.0-100.0) fL MCH (25.0-35.0) pg RDW (11.5-15.5) % Plt Count (150-450) k/uL Neutrophils # (1.3-7.7) k/uL Macrocytosis PT (9.0-12.0) sec INR (<1.2) APTT (22.0-30.0) sec Potassium (3.5-5.1) mmol/L Chloride (98-107) mmol/L Carbon Dioxide (22-30) mmol/L BUN (7-17) mg/dL Glucose (74-99) mg/dL POC Glucose (mg/dL) 150 H (75-99) mg/dL Calcium (8.4-10.2) mg/dL Total Bilirubin (0.2-1.3) mg/dL AST (14-36) U/L ALT (4-34) U/L Alkaline Phosphatase (38-126) U/L Ammonia (<30) umol/L Total Protein (6.3-8.2) g/dL Albumin (3.5-5.0) g/dL Albumin (PEP) (3.80-4.90) g/dL Gefvy-5-Sjmhjgvsk (0.60-1.00) g/dL Microbiology - Last 24 Hours (Table) 02/16/19 18:43 Blood Culture - Preliminary Blood No Growth after 96 hours Assessment and Plan Plan: #1. Altered mental status secondary to hepatic encephalopathy and hyperammonemia, not responsive to lactulose and Xifaxan was also added yesterday to help with his septic encephalopathy #2. Severe alcohol abuse with alcoholic liver disease and cirrhosis, no significant ascites based on the ultrasound of the abdomen #3. Elevated ammonia levels causing mental status changes, on lactulose #4. Abdominal ascites, no significant ascites #5. Coagulopathy of alcohol abuse and liver cirrhosis. The patient's INR is 1.6 with a PT of 16 #6. Anemia #7. Elevated transaminases, trending down #8. Alcoholic pancreatitis with elevated lipase #9. Acute kidney injury #10. Hypernatremia improving and the sodium level is down to 143 and has been improving steadily from a baseline of 150. #11 hyperbilirubinemia with a bilirubin level of 14.7 Plan Prognosis remains extremely poor. The patient advanced liver disease. Continue the supportive care. Continue enteral feeding for nutritional support. Continue the combination of Xifaxan and lactulose. Monitor the ammonia level. Continue the bicarb infusion to her diarrhea induced non-anion gap metabolic acidosis. Discontinue the subcu heparin and put the patient on sequential compression devices to lower extremities. She is already coagulopathic at this point in time. Sodium level is improving. We'll continue to follow. Input from GI is appreciated regarding her liver failure. Monitor the ammonia level.
[2019-02-21 11:50] LABS: Glucose,Whole Blood 137 mg/dL (75-99)
[2019-02-21 17:24] LABS: Glucose,Whole Blood 142 mg/dL (75-99)
--- NOTE | 2019-02-21 17:39 | P.PN ---
Subjective Progress Note Date: 02/21/19 This is a 58-year-old female admitted with altered mental status secondary to hepatic encephalopathy, alcohol abuse, cirrhosis, hyperammonia and multiple other medical issues. CO2 14,on bicarb drip. Maintained on empiric antibiotics. Afebrile, normal WBC, blood cultures no growth in 72 hours. INR 1.6. T bili remains at 14.6, transaminases trending down. Ammonia 111, on lactulose. Abdominal ultrasound reporting trace amount of ascites, inadequate for paracentesis. Vital signs stable. Patient was on D5 W with improvement in sodium down to 146. Renal function improving down to 1.12. 02/21/2019 continues on Xifaxan, lactulose, ammonia 107. T bili 14.7, LFTs remain elevated. Potassium 3.1 being replaced. Afebrile, WBC 15.3, blood cultures negative. Bicarb 17, on bicarb drip. Sodium level improving. Evaluated by GI with recommendations noted. Objective - Vital Signs Vital signs: Vital Signs Temp 99.3 F 02/21/19 16:00 Pulse 97 02/21/19 17:00 Resp 17 02/21/19 17:00 BP 133/78 02/21/19 17:00 Pulse Ox 96 02/21/19 17:00 Intake & Output 02/20/19 02/21/19 02/21/19 18:59 06:59 18:59 Intake Total 2330 1800 1740 Output Total 682 697 4871 Balance 2004 1370 -1020 Weight 65.7 kg 65.7 kg Intake: IV 1450 900 850 Dextrose 5% in Water 1, 900 000 ml @ 150 mls/hr IV . Q6H40M SUSANNA Rx#:[id number] Dextrose 5% in Water 1, 450 900 750 000 ml @ 75 mls/hr IV . [id number] SUSANNA with Sodium Bicarb (1 Meq/ml) 150 ml Rx#:[id number] Piperacillin-Tazobactam 3 100 100 .375 gm In Sodium Chloride 0.9% 100 ml @ 25 mls/hr IVPB Q8H SUSANNA Rx#: [id number] Tube Feeding 750 600 500 Other 130 300 390 Output: Urine 325 430 360 Stool 2400 Other: Voiding Method Indwelling Catheter Indwelling Catheter Indwelling Catheter - Exam PHYSICAL EXAM: VITAL SIGNS: As above GENERAL: Obtunded ,Jaundiced, HEENT: Conjunctivae normal. eyes normal. NG tube present. NECK: No JVD. No thyroid enlargement. No LNs CARDIOVASCULAR: S1, S2 regular. No murmur RESPIRATION: Breath sounds clear, diminished in the bases. No rhonchi, crackles, or wheezing. ABDOMEN: Firm, nontender . Distended, No guarding. no masses palpable. Positive ascites, No hepatosplenomegaly.Hypoactive Bowel sounds heard. Fecal management system present with significant amount of diarrhea. LEGS: No edema. no swelling, NERVOUS SYSTEM: Unable to assess, Obtunded ,Does not follow commands, withdrawals slowly to noxious stimuli Skin: no rash Microbiology 02/16/19 18:43 Blood Blood Culture - Preliminary No Growth after 96 hours - Labs CBC & Chem 7: 02/21/19 05:01 02/21/19 05:01 Labs: Abnormal Lab Results - Last 24 Hours (Table) 02/20/19 02/20/19 02/21/19 Range/Units 17:25 18:06 01:58 WBC (3.8-10.6) k/uL RBC (3.80-5.40) m/uL Hgb (11.4-16.0) gm/dL Hct (34.0-46.0) % MCV (80.0-100.0) fL MCH (25.0-35.0) pg RDW (11.5-15.5) % Plt Count (150-450) k/uL Neutrophils # (1.3-7.7) k/uL Macrocytosis Potassium (3.5-5.1) mmol/L Chloride (98-107) mmol/L Carbon Dioxide (22-30) mmol/L BUN (7-17) mg/dL Glucose (74-99) mg/dL POC Glucose (mg/dL) 125 H 136 H 162 H (75-99) mg/dL Calcium (8.4-10.2) mg/dL Total Bilirubin (0.2-1.3) mg/dL AST (14-36) U/L ALT (4-34) U/L Alkaline Phosphatase (38-126) U/L Ammonia (<30) umol/L Total Protein (6.3-8.2) g/dL Albumin (3.5-5.0) g/dL 0102/21/19 02/21/19 Range/Units 05:01 05:01 05:01 WBC 15.3 H (3.8-10.6) k/uL RBC 2.60 L (3.80-5.40) m/uL Hgb 10.4 L (11.4-16.0) gm/dL Hct 32.9 L (34.0-46.0) % MCV 126.5 H (80.0-100.0) fL MCH 40.1 H (25.0-35.0) pg RDW 16.2 H (11.5-15.5) % Plt Count 103 L (150-450) k/uL Neutrophils # 12.7 H (1.3-7.7) k/uL Macrocytosis Marked A Potassium 3.1 L (3.5-5.1) mmol/L Chloride 121 H (98-107) mmol/L Carbon Dioxide 17 L (22-30) mmol/L BUN 21 H (7-17) mg/dL Glucose 140 H (74-99) mg/dL POC Glucose (mg/dL) (75-99) mg/dL Calcium 7.8 L (8.4-10.2) mg/dL Total Bilirubin 14.7 H (0.2-1.3) mg/dL AST 108 H (14-36) U/L ALT 68 H (4-34) U/L Alkaline Phosphatase 208 H (38-126) U/L Ammonia 107 H (<30) umol/L Total Protein 5.7 L (6.3-8.2) g/dL Albumin 2.3 L (3.5-5.0) g/dL 02/21/19 02/21/19 02/21/19 Range/Units 05:19 11:48 17:23 WBC (3.8-10.6) k/uL RBC (3.80-5.40) m/uL Hgb (11.4-16.0) gm/dL Hct (34.0-46.0) % MCV (80.0-100.0) fL MCH (25.0-35.0) pg RDW (11.5-15.5) % Plt Count (150-450) k/uL Neutrophils # (1.3-7.7) k/uL Macrocytosis Potassium (3.5-5.1) mmol/L Chloride (98-107) mmol/L Carbon Dioxide (22-30) mmol/L BUN (7-17) mg/dL Glucose (74-99) mg/dL POC Glucose (mg/dL) 150 H 137 H 142 H (75-99) mg/dL Calcium (8.4-10.2) mg/dL Total Bilirubin (0.2-1.3) mg/dL AST (14-36) U/L ALT (4-34) U/L Alkaline Phosphatase (38-126) U/L Ammonia (<30) umol/L Total Protein (6.3-8.2) g/dL Albumin (3.5-5.0) g/dL Microbiology - Last 24 Hours (Table) 02/16/19 18:43 Blood Culture - Preliminary Blood No Growth after 96 hours Assessment and Plan Assessment: Altered mental status secondary to hepatic encephalopathy and Hyperammonia Severe Alcohol abuse with alcoholic liver disease, cirrhosis Abdominal ascites, not significant per ultrasound Coagulopathy secondary to alcohol abuse Anemia of chronic disease Alcoholic pancreatitis Acute renal failure, improving Hypernatremia, improving Hypokalemia Plan: Continue current medication regime ,monitoring and symptomatic treatment. Strict aspiration precautions. Continue lactulose, Xifaxan. Close monitoring of ammonia level, LFTs, electrolytes.potassium replacement as per ICU replacement protocol. Follow closely with multiple consults. Prognosis guarded given multiple complex medical issues. The impression and plan of care has been dictated as directed. : I performed a history and examination of this patient, discussed the same with the dictator. I agree with the dictator's note ,documented as a scribe. Any additional findings or plans will be noted.
--- NOTE | 2019-02-21 19:03 | CONS ---
CONSULTATION DATE OF SERVICE: 02/21/2019 The patient is a 58-year-old pleasant female with history of alcoholic cirrhosis of the liver, admitted to the hospital with altered mental status. She was noted to have elevated ammonia level consistent with hepatic encephalopathy. She was started on oral lactulose 30 mL 3 times and has an FMS in place and she has several liquid bowel movements. She was started on oral Xifaxan 550 mg twice daily yesterday and so far she continues to remain obtunded. She is opening eyes to painful stimuli. As per the nursing staff, no fever or chills. PHYSICAL EXAMINATION: Appears comfortable, no apparent distress. Blood pressure is 122/82, pulse rate 100, temperature 97.5. HEENT examination unremarkable. Conjunctivae pink. Sclerae icteric. Oral cavity, no lesions. NECK: No JVD or lymph node enlargement. CHEST: Clear to auscultation. HEART: Regular rate and rhythm. ABDOMEN is slightly distended. There was some free fluid noted. EXTREMITIES: No pedal edema. SKIN: No rashes. NEURO: She is obtunded. LABS: From today WBC 15.3, hemoglobin 10.4, platelets 103. BUN is 21, creatinine 0.91. Total bilirubin is 14.7, AST 108, ALT 68, alkaline phosphatase 208. Hepatitis serologies for A, B and C were negative. Alpha fetoprotein is normal at 3.8. She did have ultrasound of the abdomen done yesterday to evaluate for ascites and possible paracentesis, but there was trace amount of ascites noted and was inadequate for paracentesis. IMPRESSION: 1. Altered mental status secondary to hepatic encephalopathy. Presently on oral lactulose as well as Xifaxan and still remains obtunded. Ammonia level has slightly improved. 2. Acute alcoholic hepatitis with elevated bilirubin and serum transaminases. 3. Minimal ascites status post ultrasound of the abdomen yesterday. No significant ascites noted for paracentesis. RECOMMENDATIONS: 1. Continue with Xifaxan 550 mg twice daily as well as oral lactulose 30 mL 2-3 times daily. 2. Repeat ammonia level in the morning. 3. Continue with broad-spectrum antibiotics. 4. Continue with tube feeds. Thank you for this consultation. MMODL / IJN: [id number] /
[2019-02-21 23:55] LABS: Glucose,Whole Blood 156 mg/dL (75-99)
[2019-02-22 04:54] LABS: Anisocytosis Slight; Basophils # (A) 0.3 k/uL (0-0.2); Basophils % (A) 2 %; Eosinophils # (A) 0.2 k/uL (0-0.7); Eosinophils % (A) 1 %; HCT 31.5 % (34.0-46.0); HGB 10.5 gm/dL (11.4-16.0); Hypochromasia Slight; Lymphocytes # (A) 1.6 k/uL (1.0-4.8); Lymphocytes % (A) 9 %; MCH 40.6 pg (25.0-35.0); MCHC 33.2 g/dL (31.0-37.0); MCV 122.2 fL (80.0-100.0); Mean Platelet Volume 11.3; Monocytes # (A) 1.2 k/uL (0-1.0); Monocytes % (A) 6 %; Neutrophils % (A) 80 %; Platelet Count 115 k/uL (150-450); RBC 2.58 m/uL (3.80-5.40); RDW 16.8 % (11.5-15.5); WBC 18.8 k/uL (3.8-10.6)
[2019-02-22 05:04] LABS: Calcium 7.6 mg/dL (8.4-10.2); Potassium 2.8 mmol/L (3.5-5.1)
[2019-02-22] MEDS: PIPERACILLIN-TAZOBACTAM 3.375 GM in SODIUM CHLORIDE 0.9% 100 ML IVPB SCH ×3 (05:18→21:24)
[2019-02-22 05:33] LABS: Macrocytosis Marked
[2019-02-22 06:11] LABS: Glucose,Whole Blood 148 mg/dL (75-99)
[2019-02-22] MEDS: INSULIN ASPART (NovoLOG) 100 UNIT/ML VIAL SQ SCH ×3 (06:14→17:36)
[2019-02-22] MEDS: POTASSIUM BICARBONATE/CIT AC 20 MEQ TABLET.EFF NG-TUBE SCH ×5 (06:15→18:41)
[2019-02-22] MEDS: PANTOPRAZOLE 40 MG/10 ML VIAL IV SCH (08:14)
[2019-02-22] MEDS: LACTULOSE 20 GM/30 ML CUP PO SCH ×3 (08:14→21:22)
[2019-02-22] MEDS: THIAMINE 100 MG/ML 2 ML VIAL IVP SCH (08:15)
[2019-02-22] MEDS: RIFAXIMIN 550 MG TABLET PO SCH ×2 (08:15→21:23)
--- NOTE | 2019-02-22 10:46 | P.PN ---
Subjective Progress Note Date: 02/22/19 On 02/20/2019 patient is seen in follow-up in intensive care unit, she is still quite obtunded, withdraws from noxious stimuli sluggishly, vital signs are stable, room air pulse ox is 97%, hemodynamically patient is stable, in sinus mechanism with a rate of 86 BPM, blood pressures 133/79, today's labs have been reviewed showing increase in ammonia level up to 111, patient remains on lactulose at 30 g 3 times a day via the NG tube, she is also receiving nutrition with a viral high-protein at a rate of 50 with a goal of 50 with standard water flushes, on yesterday's labs patient was noted to be hyper nature ischemic, she remains on D5W infusion at a rate of 150 ML per hour, and today's labs show i mprovement in the serum sodium which is down to 146 on today's labs, renal profile has slightly improved, with BUN at 23, and creatinine is 1.12, patient remains acidotic, although he did slightly improve, and CO2 on today's labs14. Liver enzymes are improving, AST down to 151, ALT is 76, and alkaline phosphatase is stable at 176. Blood culture has shown no growth. No leukocytosis, with blood cell count is 10.5, patient remains on empiric antibiotics, she has been afebrile. Gilmore catheter is in place patient is producing 2240 ML per hour of dark colored urine, FMS in place with liquid out put On 02/21/2019 the patient's condition essentially the same as yesterday. Still encephalopathic. Ammonia level remains high. She remains on lactulose 10 ML's 3 times a day and she has a fecal management system and she is producing adequate amount of liquidy bowel movements. Xifaxan was also added yesterday regarding the hepatitic encephalopathy. The serum ammonia level is still elevated at 107. She is having some hypokalemia with a potassium level of 3.1 related to her diarrhea and this will be replaced. She has also developed some non-anion gap metabolic acidosis related to her diarrhea. Liver function tests are still abnormal. NG tube is still in place. White cell count is at 15.3. No fever. No other significant events overnight. Blood cultures of been negative. The ultrasound of the abdomen showed some small ascites and there was inadequate fluid for paracentesis. On 02/22/2019 the patient is finally more awake. Ammonia level is down. She is on lactulose. She is on Xifaxan. Her ammonia level is down to 84. NG tube is in place. She is receiving enteral feeding for nutritional support. Serum bicarb is up to 25. The sodium level is also up at 147. No fever. No chills. No significant abdominal distention. I think there is good progress compared to yesterday. Although the patient remains still significantly encephalopathic but at least much more awake and responsive compared to yesterday. Her fluid balance over the past 24 hours has been in the order of +3300. Her weight is up by around 7 kg over the past 5 days. She is still on a bicarb infusion rate of 75 mL an hour. She is also taking free water through her NG tube in order of 200 mL every 4 hours. Urine output is order of 30 mL an hour. She is on room air oxygen. Objective - Vital Signs Vital signs: Vital Signs Temp 97.7 F 02/22/19 08:00 Pulse 99 02/22/19 10:00 Resp 18 02/22/19 10:00 BP 119/76 02/22/19 10:00 Pulse Ox 95 02/22/19 10:00 Intake & Output 02/21/19 02/22/19 02/22/19 18:59 06:59 18:59 Intake Total 1815 2025 730 Output Total 2800 415 1105 Balance -985 1610 -375 Weight 65.7 kg Intake: IV 925 975 300 Dextrose 5% in Water 1, 825 900 300 000 ml @ 75 mls/hr IV . [id number] SUSANNA with Sodium Bicarb (1 Meq/ml) 150 ml Rx#:[id number] Piperacillin-Tazobactam 3 100 75 .375 gm In Sodium Chloride 0.9% 100 ml @ 25 mls/hr IVPB Q8H SUSANNA Rx#: [id number] Tube Feeding 500 750 200 Other 390 300 230 Output: Urine 400 415 105 Stool 2400 1000 Other: Voiding Method Indwelling Catheter Indwelling Catheter Indwelling Catheter - Exam GENERAL EXAM: Obtunded, 58-year-old female, jaundiced, awakens following some simple commands and the patient is recovering from her encephalopathy HEAD: Normocephalic/atraumatic. EYES: Normal reaction of pupils, equal size. Conjunctiva pink, sclera white. NOSE: Clear with pink turbinates. NG tube is in place with the tube feedings infusing at a rate of 50 with a goal of 50 of vital AF THROAT: No erythema or exudates. NECK: No masses, no JVD, no thyroid enlargement, no adenopathy. CHEST: No chest wall deformity. Symmetrical expansion. LUNGS: Equal air entry with no crackles, wheeze, rhonchi or dullness. CVS: Regular rate and rhythm, normal S1 and S2, no gallops, no murmurs, no rubs ABDOMEN: Firm, nontender. No hepatosplenomegaly, sluggish bowel sounds, no guarding or rigidity. EXTREMITIES: No clubbing, no edema, no cyanosis, 2+ pulses and upper and lower extremities. MUSCULOSKELETAL: Muscle strength and tone normal. SPINE: No scoliosis or deformity SKIN: No rashes CENTRAL NERVOUS SYSTEM: Hepatic encephalopathy is improving and the patient is more responsive and interactive on today's evaluation following simple commands . No focal deficits, tone is normal in all 4 extremities. - Labs CBC & Chem 7: 02/22/19 04:27 02/22/19 04:27 Labs: Abnormal Lab Results - Last 24 Hours (Table) 02/21/19 02/21/19 02/21/19 Range/Units 11:48 16:49 17:23 WBC (3.8-10.6) k/uL RBC (3.80-5.40) m/uL Hgb (11.4-16.0) gm/dL Hct (34.0-46.0) % MCV (80.0-100.0) fL MCH (25.0-35.0) pg RDW (11.5-15.5) % Plt Count (150-450) k/uL Neutrophils # (1.3-7.7) k/uL Monocytes # (0-1.0) k/uL Basophils # (0-0.2) k/uL Macrocytosis Sodium (137-145) mmol/L Potassium 5.5 H (3.5-5.1) mmol/L Chloride (98-107) mmol/L BUN (7-17) mg/dL Glucose (74-99) mg/dL POC Glucose (mg/dL) 137 H 142 H (75-99) mg/dL Calcium (8.4-10.2) mg/dL Ammonia (<30) umol/L 02/21/19 02/22/19 02/22/19 Range/Units 23:43 04:27 04:27 WBC 18.8 H (3.8-10.6) k/uL RBC 2.58 L (3.80-5.40) m/uL Hgb 10.5 L (11.4-16.0) gm/dL Hct 31.5 L (34.0-46.0) % MCV 122.2 H (80.0-100.0) fL MCH 40.6 H (25.0-35.0) pg RDW 16.8 H (11.5-15.5) % Plt Count 115 L (150-450) k/uL Neutrophils # 15.0 H (1.3-7.7) k/uL Monocytes # 1.2 H (0-1.0) k/uL Basophils # 0.3 H (0-0.2) k/uL Macrocytosis Marked A Sodium 147 H (137-145) mmol/L Potassium 2.8 L (3.5-5.1) mmol/L Chloride 117 H (98-107) mmol/L BUN 23 H (7-17) mg/dL Glucose 142 H (74-99) mg/dL POC Glucose (mg/dL) 156 H (75-99) mg/dL Calcium 7.6 L (8.4-10.2) mg/dL Ammonia (<30) umol/L 02/22/19 02/22/19 Range/Units 04:27 06:10 WBC (3.8-10.6) k/uL RBC (3.80-5.40) m/uL Hgb (11.4-16.0) gm/dL Hct (34.0-46.0) % MCV (80.0-100.0) fL MCH (25.0-35.0) pg RDW (11.5-15.5) % Plt Count (150-450) k/uL Neutrophils # (1.3-7.7) k/uL Monocytes # (0-1.0) k/uL Basophils # (0-0.2) k/uL Macrocytosis Sodium (137-145) mmol/L Potassium (3.5-5.1) mmol/L Chloride (98-107) mmol/L BUN (7-17) mg/dL Glucose (74-99) mg/dL POC Glucose (mg/dL) 148 H (75-99) mg/dL Calcium (8.4-10.2) mg/dL Ammonia 84 H (<30) umol/L Microbiology - Last 24 Hours (Table) 02/16/19 18:43 Blood Culture - Preliminary Blood No Growth after 120 hours Assessment and Plan Plan: #1. Altered mental status secondary to hepatic encephalopathy and hyperammonemia, responding to lactulose and Xifaxan and the patient is less encephalopathic compared to yesterday. She is more awake and ammonia level is down to 84. We'll continue the lactulose and Xifaxan for now. #2. Severe alcohol abuse with alcoholic liver disease and cirrhosis, no significant ascites based on the ultrasound of the abdomen #3. Elevated ammonia levels causing mental status changes, on lactulose and Xifaxan and this is improving #4. Abdominal ascites, no significant ascites #5. Coagulopathy of alcohol abuse and liver cirrhosis. The patient's INR is 1.6 with a PT of 16 #6. Chronic Anemia #7. Elevated transaminases, trending down #8. Alcoholic pancreatitis with elevated lipase #9. Acute kidney injury, recovered #10. Hypernatremia improving and the sodium level is down 147 and she is on free water supplements #11 hyperbilirubinemia with a bilirubin level of 14.7 Plan Cut down the IV fluids to 30 mL an hour. Increase the free water supplements of NG. Continue enteral feeding for nutritional support. Monitor ammonia level. I realize that the patient has gained weight and she has developed some fluid retention although this is not considerably much on physical examination. We'll hold off diuretics for now. The renal function is normal. The bilirubin is elevated. The sodium level is improved compared to yesterday and the serum bicarb is also improved. Continue the Xifaxan. Continue lactulose. Monitor the stool output. Monitor urine output. Mental status gradually improving. We'll keep in ICU for 24 hours. Keep NG tube in place and the patient is not strong enough for any oral intake or swallow at this point in time. I'm hoping that it encephalopathy will improve further over the next 24 hours. Ammonia level remains quite elevated. Prognosis remains extremely poor. The patient advanced liver disease.
[2019-02-22] MEDS: DEXTROSE 5% IN WATER 1,000 ML with SODIUM BICARB (1 MEQ/ML) 150 ML IV SCH (11:03)
[2019-02-22 11:45] LABS: Glucose,Whole Blood 158 mg/dL (75-99)
[2019-02-22 17:34] LABS: Glucose,Whole Blood 172 mg/dL (75-99)
[2019-02-22] MEDS ORDERED: Potassium Replacement Protocol 1 EACH MISC MISCELLANE PRN (17:34)
--- NOTE | 2019-02-22 17:35 | P.PN ---
Subjective Progress Note Date: 02/22/19 This is a 58-year-old female admitted with altered mental status secondary to hepatic encephalopathy, alcohol abuse, cirrhosis, hyperammonia and multiple other medical issues. CO2 14,on bicarb drip. Maintained on empiric antibiotics. Afebrile, normal WBC, blood cultures no growth in 72 hours. INR 1.6. T bili remains at 14.6, transaminases trending down. Ammonia 111, on lactulose. Abdominal ultrasound reporting trace amount of ascites, inadequate for paracentesis. Vital signs stable. Patient was on D5 W with improvement in sodium down to 146. Renal function improving down to 1.12. 02/21/2019 continues on Xifaxan, lactulose, ammonia 107. T bili 14.7, LFTs remain elevated. Potassium 3.1 being replaced. Afebrile, WBC 15.3, blood cultures negative. Bicarb 17, on bicarb drip. Sodium level improving. Evaluated by GI with recommendations noted. 02/22/2019 ammonia level down to 84, patient alert, following basic commands. Bicarb 25, on bicarb drip. Tolerating tube feeds at goal with minimal to no residuals.Sodium 147. Vital signs stable, maintaining O2 sats in the 90s on room air. T-max 99.2 WBC up to 18.8. Potassium 2.8. Objective - Vital Signs Vital signs: Vital Signs Temp 99.0 F 02/22/19 16:00 Pulse 103 H 02/22/19 17:00 Resp 18 02/22/19 17:00 BP 124/79 02/22/19 17:00 Pulse Ox 98 02/22/19 17:00 Intake & Output 02/21/19 02/22/19 02/22/19 18:59 06:59 18:59 Intake Total 1815 5 1740 Output Total 2800 415 2330 Balance -985 1610 -590 Weight 65.7 kg Intake: IV 925 975 510 Dextrose 5% in Water 1, 825 900 510 000 ml @ 30 mls/hr IV . Q24H SUSANNA with Sodium Bicarb (1 Meq/ml) 150 ml Rx#:[id number] Piperacillin-Tazobactam 3 100 75 .375 gm In Sodium Chloride 0.9% 100 ml @ 25 mls/hr IVPB Q8H SUSANNA Rx#: [id number] Tube Feeding 500 750 550 Other 390 300 680 Output: Urine 400 415 330 Stool 2400 2000 Other: Voiding Method Indwelling Catheter Indwelling Catheter Indwelling Catheter - Exam PHYSICAL EXAM: VITAL SIGNS: As above GENERAL: Jaundiced, encephalopathic, alert, attempting to converse, following basic commands HEENT: Conjunctivae normal. eyes normal. NG tube present. NECK: No JVD. No thyroid enlargement. No LNs CARDIOVASCULAR: S1, S2 regular. No murmur RESPIRATION: Breath sounds clear, diminished in the bases. No rhonchi, crackles, or wheezing. ABDOMEN: Firm, nontender . Distended, No guarding. no masses palpable. No hepatosplenomegaly.Hypoactive Bowel sounds heard. Fecal management system present with significant amount of diarrhea. LEGS: No edema. no swelling, NERVOUS SYSTEM: Unable to assess fully, hepatic encephalopathy improving, mental status slowly improving ,following simple commands Skin: no rash - Labs CBC & Chem 7: 02/22/19 04:27 02/22/19 04:27 Labs: Abnormal Lab Results - Last 24 Hours (Table) 02/21/19 02/21/19 02/21/19 Range/Units 16:49 17:23 23:43 WBC (3.8-10.6) k/uL RBC (3.80-5.40) m/uL Hgb (11.4-16.0) gm/dL Hct (34.0-46.0) % MCV (80.0-100.0) fL MCH (25.0-35.0) pg RDW (11.5-15.5) % Plt Count (150-450) k/uL Neutrophils # (1.3-7.7) k/uL Monocytes # (0-1.0) k/uL Basophils # (0-0.2) k/uL Macrocytosis Sodium (137-145) mmol/L Potassium 5.5 H (3.5-5.1) mmol/L Chloride (98-107) mmol/L BUN (7-17) mg/dL Glucose (74-99) mg/dL POC Glucose (mg/dL) 142 H 156 H (75-99) mg/dL Calcium (8.4-10.2) mg/dL Ammonia (<30) umol/L 02/22/19 02/22/19 02/22/19 Range/Units 04:27 04:27 04:27 WBC 18.8 H (3.8-10.6) k/uL RBC 2.58 L (3.80-5.40) m/uL Hgb 10.5 L (11.4-16.0) gm/dL Hct 31.5 L (34.0-46.0) % MCV 122.2 H (80.0-100.0) fL MCH 40.6 H (25.0-35.0) pg RDW 16.8 H (11.5-15.5) % Plt Count 115 L (150-450) k/uL Neutrophils # 15.0 H (1.3-7.7) k/uL Monocytes # 1.2 H (0-1.0) k/uL Basophils # 0.3 H (0-0.2) k/uL Macrocytosis Marked A Sodium 147 H (137-145) mmol/L Potassium 2.8 L (3.5-5.1) mmol/L Chloride 117 H (98-107) mmol/L BUN 23 H (7-17) mg/dL Glucose 142 H (74-99) mg/dL POC Glucose (mg/dL) (75-99) mg/dL Calcium 7.6 L (8.4-10.2) mg/dL Ammonia 84 H (<30) umol/L 02/22/19 02/22/19 Range/Units 06:10 11:43 WBC (3.8-10.6) k/uL RBC (3.80-5.40) m/uL Hgb (11.4-16.0) gm/dL Hct (34.0-46.0) % MCV (80.0-100.0) fL MCH (25.0-35.0) pg RDW (11.5-15.5) % Plt Count (150-450) k/uL Neutrophils # (1.3-7.7) k/uL Monocytes # (0-1.0) k/uL Basophils # (0-0.2) k/uL Macrocytosis Sodium (137-145) mmol/L Potassium (3.5-5.1) mmol/L Chloride (98-107) mmol/L BUN (7-17) mg/dL Glucose (74-99) mg/dL POC Glucose (mg/dL) 148 H 158 H (75-99) mg/dL Calcium (8.4-10.2) mg/dL Ammonia (<30) umol/L Microbiology - Last 24 Hours (Table) 02/16/19 18:43 Blood Culture - Preliminary Blood No Growth after 120 hours Assessment and Plan Assessment: Altered mental status secondary to hepatic encephalopathy and Hyperammonia Severe Alcohol abuse with alcoholic liver disease, cirrhosis Abdominal ascites, not significant per ultrasound Coagulopathy secondary to alcohol abuse Anemia of chronic disease Alcoholic pancreatitis Acute renal failure, improving Hypernatremia, improving Hypokalemia Plan: Continue current medication regime ,monitoring and symptomatic treatment. Potassium replacement per ICU replacement protocol. Nutritional support via NG tube- Strict aspiration precautions. Continue lactulose, Xifaxan. Close monitoring of ammonia level, LFTs, electrolytes. Prognosis guarded given multiple complex medical issues. The impression and plan of care has been dictated as directed. : I performed a history and examination of this patient, discussed the same with the dictator. I agree with the dictator's note ,documented as a scribe. Any additional findings or plans will be noted.
--- NOTE | 2019-02-22 20:39 | PN ---
PROGRESS NOTE DATE OF SERVICE: February 22, 2019 Patient is a 58-year-old pleasant white female with history of alcoholic cirrhosis of the liver with portal hypertension and hepatic encephalopathy, admitted to hospital with altered mental status. She has been obtunded for the last 3 days and today she is more responsive. She is answering simple questions. She denies any abdominal pain. She remains on Xifaxan and oral lactulose and has several loose bowel movements daily. PHYSICAL EXAMINATION: She appears comfortable. No apparent distress. VITAL SIGNS: Stable. Blood pressure 125/87, pulse rate 102, temperature 99. HEENT examination unremarkable. Conjunctivae pink. Sclerae slightly icteric. Oral cavity no lesions. NECK: No JVD or lymph node enlargement. CHEST: Clear to auscultation. HEART: Regular rate and rhythm. ABDOMEN is very distended, but there was some free fluid noted. It was tympanic. EXTREMITIES: No pedal edema. Mild diffuse tenderness noted. EXTREMITIES: No pedal edema. SKIN: No rashes. NEURO: She is alert and oriented x3. No focal deficits. LABS: From today WBC 18.8, hemoglobin 10.5, platelets are 115. INR is 1.6. Yesterday, bilirubin is 14.7. ALT and AST are 108 and 68, respectively. BUN and creatinine are 29 and 0.8 respectively. IMPRESSION: 1. Hepatic encephalopathy, gradually improving. Remains on oral lactulose and Xifaxan daily. 2. Acute alcoholic hepatitis superimposed on alcoholic cirrhosis of the liver. 3. Mild ascites. 4. Questionable aspiration pneumonia on broad-spectrum antibiotics. 5. History of alcohol abuse. RECOMMENDATION: 1. Continue with oral Xifaxan as well as lactulose and titrate so that she has 3-4 bowel movements daily. 2. Continue with broad-spectrum antibiotics. 3. Repeat labs in the morning. 4. We will follow with you closely. Thank you for this consultation. MMODL / IJN: [id number] /
[2019-02-23 00:16] LABS: Glucose,Whole Blood 145 mg/dL (75-99)
[2019-02-23] MEDS: INSULIN ASPART (NovoLOG) 100 UNIT/ML VIAL SQ SCH ×5 (00:34→23:59)
[2019-02-23] MEDS: PIPERACILLIN-TAZOBACTAM 3.375 GM in SODIUM CHLORIDE 0.9% 100 ML IVPB SCH (05:04)
[2019-02-23 06:04] LABS: Glucose,Whole Blood 142 mg/dL (75-99)
[2019-02-23 06:40] LABS: Anisocytosis Slight; HCT 30.8 % (34.0-46.0); HGB 10.2 gm/dL (11.4-16.0); Hypochromasia Moderate; MCH 41.6 pg (25.0-35.0); MCHC 33.1 g/dL (31.0-37.0); Macrocytosis Marked; Mean Platelet Volume 11.4; RBC 2.45 m/uL (3.80-5.40); RDW 17.4 % (11.5-15.5)
[2019-02-23 06:41] LABS: MCV 125.6 fL (80.0-100.0)
[2019-02-23 06:49] LABS: Calcium 7.5 mg/dL (8.4-10.2); Potassium 3.2 mmol/L (3.5-5.1)
[2019-02-23] MEDS: THIAMINE 100 MG/ML 2 ML VIAL IVP SCH (07:55)
[2019-02-23] MEDS: PANTOPRAZOLE 40 MG/10 ML VIAL IV SCH (07:55)
[2019-02-23] MEDS: POTASSIUM BICARBONATE/CIT AC 20 MEQ TABLET.EFF NG-TUBE SCH ×2 (07:55→11:05)
[2019-02-23] MEDS: RIFAXIMIN 550 MG TABLET PO SCH ×2 (07:55→20:00)
[2019-02-23] MEDS: LACTULOSE 20 GM/30 ML CUP PO SCH (07:55)
[2019-02-23 08:12] LABS: Band Neutrophils % 1 %; Eosinophils # (M) 0.16 k/uL (0-0.7); Lymphocytes # (M) 2.08 k/uL (1.0-4.8); Metamyelocytes # (M) 0.16 k/uL (0); Metamyelocytes % 1 %; Monocytes # (M) 1.12 k/uL (0-1.0); Myelocytes # (M) 0.16 k/uL (0); Myelocytes % 1 %; Neutrophils % (M) 78 %; Nucleated Red Blood Cells 3 /100 WBC (0-0); Total Cells Counted 200
[2019-02-23 08:14] LABS: Target Cells Present
[2019-02-23 08:15] LABS: Polychromasia Present
[2019-02-23 08:16] LABS: Platelet Count 83 k/uL (150-450)
[2019-02-23] MEDS: DEXTROSE 5% IN WATER 1,000 ML with SODIUM BICARB (1 MEQ/ML) 150 ML IV SCH (11:07)
--- NOTE | 2019-02-23 11:16 | P.PN ---
Subjective Progress Note Date: 02/23/19 Principal diagnosis: Altered mental status secondary to suspected hepatic encephalopathy and hyperammonemia On 02/20/2019 patient is seen in follow-up in intensive care unit, she is still quite obtunded, withdraws from noxious stimuli sluggishly, vital signs are stable, room air pulse ox is 97%, hemodynamically patient is stable, in sinus mechanism with a rate of 86 BPM, blood pressures 133/79, today's labs have been reviewed showing increase in ammonia level up to 111, patient remains on lactulose at 30 g 3 times a day via the NG tube, she is also receiving nutrition with a viral high-protein at a rate of 50 with a goal of 50 with standard water flushes, on yesterday's labs patient was noted to be hyper nature ischemic, she remains on D5W infusion at a rate of 150 ML per hour, and today's labs show improvement in the serum sodium which is down to 146 on today's labs, renal profile has slightly improved, with BUN at 23, and creatinine is 1.12, patient remains acidotic, although he did slightly improve, and CO2 on today's labs14. Liver enzymes are improving, AST down to 151, ALT is 76, and alkaline phosphatase is stable at 176. Blood culture has shown no growth. No leukocytosis, with blood cell count is 10.5, patient remains on empiric antibiotics, she has been afebrile. Gilmore catheter is in place patient is producing 2240 ML per hour of dark colored urine, FMS in place with liquid output. On 02/23/2019 patient seen in follow-up in the intensive care unit. Patient s awake and alert, she remains confused, but she was able to tell us her name, she is disoriented to place or time, but she is following simple commands, she is moving all 4 extremities. Vital signs are stable, room air pulse ox is 92%, hemodynamically stable, slightly tachycardic in sinus mechanism with a rate of 101 BPM, afebrile. Is on the positive for some fine basilar crackles. These labs have been reviewed, showing cell count of 16, hemoglobin is 10.2, sodium is 148, potassium is 3.2, chloride is 116, B1 is 30, creatinine 0.84 and ammonia level is improving down to 49, patient remains on a combination of lactulose and Xifaxan, patient has had extensive diarrhea, 4800 mL in liquid stool in the last 24 hours, has produced 945 mL in urine output. She remains nothing by mouth, although patient is now more awake, and she is thirsty and she is requesting some water. Remains on tube feedings at this time, with 200 mL free water flushes every 4 hours. Objective - Vital Signs Vital signs: Vital Signs Temp 98.0 F 02/23/19 08:00 Pulse 101 H 02/23/19 10:00 Resp 21 02/23/19 10:00 BP 128/86 02/23/19 10:00 Pulse Ox 92 L 02/23/19 10:00 Intake & Output 02/22/19 02/23/19 02/23/19 18:59 06:59 18:59 Intake Total 1870 1660 370 Output Total 3260 2485 120 Balance -1390 -825 250 Weight 68.1 kg Intake: IV 540 460 120 Dextrose 5% in Water 1, 540 360 120 000 ml @ 30 mls/hr IV . Q24H [facility] with Sodium Bicarb (1 Meq/ml) 150 ml Rx#:[id number] Piperacillin-Tazobactam 3 100 .375 gm In Sodium Chloride 0.9% 100 ml @ 25 mls/hr IVPB Q8H [facility] Rx#: [id number] Tube Feeding 600 550 250 Other 730 650 Output: Urine 360 585 120 Stool 2900 1900 Other: Voiding Method Indwelling Catheter Indwelling Catheter Indwelling Catheter - Exam GENERAL EXAM: 58-year-old female, jaundiced, weak, oriented to person, disoriented to time and place HEAD: Normocephalic/atraumatic. EYES: Normal reaction of pupils, equal size. Conjunctiva pink, sclera white. NOSE: Clear with pink turbinates. NG tube is in place with the tube feedings infusing at a rate of 50 with a goal of 50 of vital AF, water flushes at 200 mouth every 4 hours THROAT: No erythema or exudates. NECK: No masses, no JVD, no thyroid enlargement, no adenopathy. CHEST: No chest wall deformity. Symmetrical expansion. LUNGS: Equal air entry with no crackles, wheeze, rhonchi or dullness. CVS: Regular rate and rhythm, normal S1 and S2, no gallops, no murmurs, no rubs ABDOMEN: Firm, nontender. No hepatosplenomegaly, sluggish bowel sounds, no guarding or rigidity. EXTREMITIES: No clubbing, no edema, no cyanosis, 2+ pulses and upper and lower extremities. MUSCULOSKELETAL: Muscle strength and tone normal. SPINE: No scoliosis or deformity SKIN: No rashes CENTRAL NERVOUS SYSTEM: Awake, oriented to person. Able to verbally respond, however generally weak, her voice is weak, but she is able to tell us her name and is following simple commands No focal deficits, tone is normal in all 4 extremities. - Labs CBC & Chem 7: 02/23/19 05:55 02/23/19 05:55 Labs: Abnormal Lab Results - Last 24 Hours (Table) 02/22/19 02/22/19 02/22/19 Range/Units 11:43 15:29 17:32 WBC (3.8-10.6) k/uL RBC (3.80-5.40) m/uL Hgb (11.4-16.0) gm/dL Hct (34.0-46.0) % MCV (80.0-100.0) fL MCH (25.0-35.0) pg RDW (11.5-15.5) % Plt Count (150-450) k/uL Neutrophils # (Manual) (1.3-7.7) k/uL Monocytes # (Manual) (0-1.0) k/uL Metamyelocytes # (Man) (0) k/uL Myelocytes # (Manual) (0) k/uL Nucleated RBCs (0-0) /100 WBC Macrocytosis Sodium (137-145) mmol/L Potassium 3.1 L (3.5-5.1) mmol/L Chloride (98-107) mmol/L BUN (7-17) mg/dL Glucose (74-99) mg/dL POC Glucose (mg/dL) 158 H 172 H (75-99) mg/dL Calcium (8.4-10.2) mg/dL Ammonia (<30) umol/L 02/23/19 02/23/19 02/23/19 Range/Units 00:14 05:55 05:55 WBC 16.0 H (3.8-10.6) k/uL RBC 2.45 L (3.80-5.40) m/uL Hgb 10.2 L (11.4-16.0) gm/dL Hct 30.8 L (34.0-46.0) % MCV 125.6 H (80.0-100.0) fL MCH 41.6 H (25.0-35.0) pg RDW 17.4 H (11.5-15.5) % Plt Count 83 L (150-450) k/uL Neutrophils # (Manual) 12.60 H (1.3-7.7) k/uL Monocytes # (Manual) 1.12 H (0-1.0) k/uL Metamyelocytes # (Man) 0.16 H (0) k/uL Myelocytes # (Manual) 0.16 H (0) k/uL Nucleated RBCs 3 H (0-0) /100 WBC Macrocytosis Marked A Sodium 148 H (137-145) mmol/L Potassium 3.2 L (3.5-5.1) mmol/L Chloride 116 H (98-107) mmol/L BUN 30 H (7-17) mg/dL Glucose 132 H (74-99) mg/dL POC Glucose (mg/dL) 145 H (75-99) mg/dL Calcium 7.5 L (8.4-10.2) mg/dL Ammonia (<30) umol/L 02/23/19 02/23/19 Range/Units 06:02 07:49 WBC (3.8-10.6) k/uL RBC (3.80-5.40) m/uL Hgb (11.4-16.0) gm/dL Hct (34.0-46.0) % MCV (80.0-100.0) fL MCH (25.0-35.0) pg RDW (11.5-15.5) % Plt Count (150-450) k/uL Neutrophils # (Manual) (1.3-7.7) k/uL Monocytes # (Manual) (0-1.0) k/uL Metamyelocytes # (Man) (0) k/uL Myelocytes # (Manual) (0) k/uL Nucleated RBCs (0-0) /100 WBC Macrocytosis Sodium (137-145) mmol/L Potassium (3.5-5.1) mmol/L Chloride (98-107) mmol/L BUN (7-17) mg/dL Glucose (74-99) mg/dL POC Glucose (mg/dL) 142 H (75-99) mg/dL Calcium (8.4-10.2) mg/dL Ammonia 49 H (<30) umol/L Microbiology - Last 24 Hours (Table) 02/16/19 18:43 Blood Culture - Final Blood No Growth after 144 hours Assessment and Plan Plan: Assessment: #1. Altered mental status secondary to hepatic encephalopathy and hy perammonemia, moving, and on today's labs ammonia level is down to 49, patient is awake and alert, mentation is improved, patient is following simple commands and is able to provide simple verbal answers #2. Severe alcohol abuse with alcoholic liver disease and cirrhosis #3. Elevated ammonia levels causing mental status changes, on lactulose and Xifaxan, improving #4. Abdominal ascites #5. Coagulopathy of alcohol abuse #6. Anemia #7. Elevated transaminases, trending down #8. Alcoholic pancreatitis with elevated lipase #9. Acute kidney injury #10. Hypernatremia, slightly worse on today's labs, patient is having large amount of liquid stool output, will cut back to lactulose to once daily Plan: Cut back to lactulose to 30 g daily, any with free water flushes at the same rate at 200 ML every 4 hours, obtain a bedside swallow evaluation, I'll allow clear liquids by mouth, maintain aspiration precautions. Ammonia level is improving, mentation is improving, patient is responding and is able to provide some simple verbal answers, hemodynamics she remains stable, she has completed 6 days of empiric antibiotics with no sign of infection, we'll discontinue the IV Zosyn. Continue tube feedings for now patient may not be able to meet her caloric needs even if she passes the swallow evaluation today. We will monitor the patient in the intensive care unit. We'll follow I performed a history & physical examination of the patient and discussed their management with my nurse practitioner, Chelsie Walsh. I reviewed the nurse practitioner's note and agree with the documented findings and plan of care. Lung sounds are positive for diminished pressors. The findings and the impression was discussed with the patient. I attest to the documentation by the nurse practitioner. Time with Patient: Less than 30
[2019-02-23 14:17] LABS: Glucose,Whole Blood 131 mg/dL (75-99)
--- NOTE | 2019-02-23 17:53 | P.PN ---
Subjective Progress Note Date: 02/23/19 This is a 58-year-old female admitted with altered mental status secondary to hepatic encephalopathy, alcohol abuse, cirrhosis, hyperammonia and multiple other medical issues. CO2 14,on bicarb drip. Maintained on empiric antibiotics. Afebrile, normal WBC, blood cultures no growth in 72 hours. INR 1.6. T bili remains at 14.6, transaminases trending down. Ammonia 111, on lactulose. Abdominal ultrasound reporting trace amount of ascites, inadequate for paracentesis. Vital signs stable. Patient was on D5 W with improvement in sodium down to 146. Renal function improving down to 1.12. 02/21/2019 continues on Xifaxan, lactulose, ammonia 107. T bili 14.7, LFTs remain elevated. Potassium 3.1 being replaced. Afebrile, WBC 15.3, blood cultures negative. Bicarb 17, on bicarb drip. Sodium level improving. Evaluated by GI with recommendations noted. 02/22/2019 ammonia level down to 84, patient alert, following basic commands. Bicarb 25, on bicarb drip. Tolerating tube feeds at goal with minimal to no residuals.Sodium 147. Vital signs stable, maintaining O2 sats in the 90s on room air. T-max 99.2 WBC up to 18.8. Potassium 2.8. 02/23/2019 ammonia continues trending down, currently 49. More alert today, alert and oriented to person, following simple commands. Maintained on tube feeds and aspiration precautions. Objective - Vital Signs Vital signs: Vital Signs Temp 98.0 F 02/23/19 08:00 Pulse 102 H 02/23/19 11:01 Resp 18 02/23/19 11:01 BP 133/89 02/23/19 11:01 Pulse Ox 92 L 02/23/19 11:01 Intake & Output 02/22/19 02/23/19 02/23/19 18:59 06:59 18:59 Intake Total 1870 1660 400 Output Total 3260 2485 150 Balance -1390 -825 250 Weight 68.1 kg Intake: IV 540 460 150 Dextrose 5% in Water 1, 540 360 150 000 ml @ 30 mls/hr IV . Q24H [facility] with Sodium Bicarb (1 Meq/ml) 150 ml Rx#:[id number] Piperacillin-Tazobactam 3 100 .375 gm In Sodium Chloride 0.9% 100 ml @ 25 mls/hr IVPB Q8H [facility] Rx#: [id number] Tube Feeding 600 550 250 Other 730 650 Output: Urine 360 585 150 Stool 2900 1900 Other: Voiding Method Indwelling Catheter Indwelling Catheter Indwelling Catheter - Exam PHYSICAL EXAM: VITAL SIGNS: As above GENERAL: Jaundiced, encephalopathic, alert and oriented 1 to person, following basic commands HEENT: Conjunctivae normal. eyes normal. NG tube present. NECK: No JVD. No thyroid enlargement. No LNs CARDIOVASCULAR: S1, S2 regular. Mild tachycardia, No murmur RESPIRATION: Breath sounds clear, diminished in the bases. No rhonchi, fine basilar crackles, no wheezing. ABDOMEN: Firm, nontender . Distended, No guarding. no masses palpable. No hepatosplenomegaly.Hypoactive Bowel sounds heard. Fecal management system present with large amount of diarrhea. LEGS: No edema. no swelling, NERVOUS SYSTEM:mental status slowly improving , alert and oriented to person, disoriented to place and time, following simple commands. No focal deficits. Skin: no rash - Labs CBC & Chem 7: 02/23/19 05:55 02/23/19 05:55 Labs: Abnormal Lab Results - Last 24 Hours (Table) 02/22/19 02/22/19 02/23/19 Range/Units 15:29 17:32 00:14 WBC (3.8-10.6) k/uL RBC (3.80-5.40) m/uL Hgb (11.4-16.0) gm/dL Hct (34.0-46.0) % MCV (80.0-100.0) fL MCH (25.0-35.0) pg RDW (11.5-15.5) % Plt Count (150-450) k/uL Neutrophils # (Manual) (1.3-7.7) k/uL Monocytes # (Manual) (0-1.0) k/uL Metamyelocytes # (Man) (0) k/uL Myelocytes # (Manual) (0) k/uL Nucleated RBCs (0-0) /100 WBC Macrocytosis Sodium (137-145) mmol/L Potassium 3.1 L (3.5-5.1) mmol/L Chloride (98-107) mmol/L BUN (7-17) mg/dL Glucose (74-99) mg/dL POC Glucose (mg/dL) 172 H 145 H (75-99) mg/dL Calcium (8.4-10.2) mg/dL Ammonia (<30) umol/L 02/23/19 02/23/19 02/23/19 Range/Units 05:55 05:55 06:02 WBC 16.0 H (3.8-10.6) k/uL RBC 2.45 L (3.80-5.40) m/uL Hgb 10.2 L (11.4-16.0) gm/dL Hct 30.8 L (34.0-46.0) % MCV 125.6 H (80.0-100.0) fL MCH 41.6 H (25.0-35.0) pg RDW 17.4 H (11.5-15.5) % Plt Count 83 L (150-450) k/uL Neutrophils # (Manual) 12.60 H (1.3-7.7) k/uL Monocytes # (Manual) 1.12 H (0-1.0) k/uL Metamyelocytes # (Man) 0.16 H (0) k/uL Myelocytes # (Manual) 0.16 H (0) k/uL Nucleated RBCs 3 H (0-0) /100 WBC Macrocytosis Marked A Sodium 148 H (137-145) mmol/L Potassium 3.2 L (3.5-5.1) mmol/L Chloride 116 H (98-107) mmol/L BUN 30 H (7-17) mg/dL Glucose 132 H (74-99) mg/dL POC Glucose (mg/dL) 142 H (75-99) mg/dL Calcium 7.5 L (8.4-10.2) mg/dL Ammonia (<30) umol/L 02/23/19 Range/Units 07:49 WBC (3.8-10.6) k/uL RBC (3.80-5.40) m/uL Hgb (11.4-16.0) gm/dL Hct (34.0-46.0) % MCV (80.0-100.0) fL MCH (25.0-35.0) pg RDW (11.5-15.5) % Plt Count (150-450) k/uL Neutrophils # (Manual) (1.3-7.7) k/uL Monocytes # (Manual) (0-1.0) k/uL Metamyelocytes # (Man) (0) k/uL Myelocytes # (Manual) (0) k/uL Nucleated RBCs (0-0) /100 WBC Macrocytosis Sodium (137-145) mmol/L Potassium (3.5-5.1) mmol/L Chloride (98-107) mmol/L BUN (7-17) mg/dL Glucose (74-99) mg/dL POC Glucose (mg/dL) (75-99) mg/dL Calcium (8.4-10.2) mg/dL Ammonia 49 H (<30) umol/L Microbiology - Last 24 Hours (Table) 02/16/19 18:43 Blood Culture - Final Blood No Growth after 144 hours Assessment and Plan Assessment: Altered mental status secondary to septic hepatic encephalopathy and Hyperammonia, present on admission Severe Alcohol abuse with alcoholic liver disease, cirrhosis Abdominal ascites, not significant per ultrasound Coagulopathy secondary to alcohol abuse Anemia of chronic disease Alcoholic pancreatitis Acute renal failure, improving Hypernatremia, improving Hypokalemia Bibasilar atelectasis Plan: Continue current medication regime ,monitoring and symptomatic treatment. Significant amount of diarrhea , lactulose decreased. Nutritional support continues via NG tube- Strict aspiration precautions. Potassium replacement as per replacement protocol. Maintain close monitoring of ammonia level, LFTs, electrolytes. Prognosis guarded given multiple complex medical issues. The impression and plan of care has been dictated as directed. : I performed a history and examination of this patient, discussed the same with the dictator. I agree with the dictator's note ,documented as a scribe. Any additional findings or plans will be noted.
[2019-02-23 18:17] LABS: Glucose,Whole Blood 143 mg/dL (75-99)
--- NOTE | 2019-02-23 22:43 | PN ---
PROGRESS NOTE DATE OF SERVICE: 02/23/2019. REQUESTING PHYSICIAN: Dr. Hilario Hudson The patient is a 58-year-old pleasant white female admitted to the hospital with altered mental status and history of alcoholic cirrhosis of the liver. She has been maintained on as well as . She is more responsive today. She is able to answer simple questions. Aware of name but not to place and time. She reports no new symptoms. She has an NG tube in place for tube feeds. She denies any abdominal pain. PHYSICAL EXAMINATION: Appears comfortable in no apparent distress. Vital signs are stable. Blood pressure is 153/89, pulse rate 102, temperature 97. HEENT examination unremarkable. Conjunctivae pink. Sclerae anicteric. Oral cavity no lesions. NECK: No JVD or lymph node enlargement. Sclerae icteric. The abdomen is slightly distended. It was slightly tympanic. The body was nontender. Possible mild shifting dullness seen. Extremities 1+ pedal edema. Skin no rashes. Neuro: She is awake, oriented to name; not to place and time. LABS: Done today WBC 16, hemoglobin 10.2, platelets 83,000. BUN 30, creatinine 0.86. Ammonia levels down to 49. Liver enzymes were not done today. IMPRESSION: 1. Acute hepatic encephalopathy, gradually improving. Remains on oral lactulose and Xifaxan. 2. Acute alcoholic hepatitis superimposed on alcoholic cirrhosis of the liver. LFTs not done today. Two days ago, T-bilirubin was 14.7. 3. Minimal ascites. RECOMMENDATIONS: 1. Continue with tube feeds. 2. Continue with oral lactulose as well as Xifaxan. 3. Follow ammonia on a close basis. 4. Repeat LFTs in the morning. 5. We will follow with you closely. Thank you for this consultation. MMODL / IJN: [id number] /
[2019-02-23 23:45] LABS: Glucose,Whole Blood 121 mg/dL (75-99)
[2019-02-24] MEDS: DEXTROSE 5% IN WATER 1,000 ML with SODIUM BICARB (1 MEQ/ML) 150 ML IV SCH (02:33)
[2019-02-24 05:52] LABS: Glucose,Whole Blood 133 mg/dL (75-99)
[2019-02-24 05:52] LABS: Glucose,Whole Blood 582 mg/dL (75-99)
[2019-02-24] MEDS: INSULIN ASPART (NovoLOG) 100 UNIT/ML VIAL SQ SCH ×4 (05:52→20:47)
[2019-02-24 06:31] LABS: Anisocytosis Slight; HCT 32.4 % (34.0-46.0); HGB 10.3 gm/dL (11.4-16.0); Hypochromasia Marked; MCH 40.7 pg (25.0-35.0); MCHC 31.7 g/dL (31.0-37.0); MCV 128.3 fL (80.0-100.0); Macrocytosis Marked; Mean Platelet Volume 11.4; RBC 2.52 m/uL (3.80-5.40); RDW 17.4 % (11.5-15.5)
[2019-02-24 06:34] LABS: Platelet Count 77 k/uL (150-450)
[2019-02-24 06:40] LABS: ALT 106 U/L (4-34); AST 259 U/L (14-36); African American GFR (CKD) >90 (>60 ml/min/1.73 sqM); Albumin 2.2 g/dL (3.5-5.0); Alkaline Phosphatase 275 U/L (38-126); Anion Gap 4 mmol/L; Blood Urea Nitrogen 35 mg/dL (7-17); Calcium 6.9 mg/dL (8.4-10.2); Carbon Dioxide 36 mmol/L (22-30); Chloride 100 mmol/L (98-107); Glucose 331 mg/dL (74-99); Non-African American GFR(CKD) 83 (>60 ml/min/1.73 sqM); Sodium 140 mmol/L (137-145); Total Bilirubin 12.5 mg/dL (0.2-1.3); Total Protein 5.5 g/dL (6.3-8.2)
[2019-02-24 07:15] LABS: Band Neutrophils % 4 %; Eosinophils # (M) 0.13 k/uL (0-0.7); Lymphocytes # (M) 2.38 k/uL (1.0-4.8); Metamyelocytes # (M) 0.13 k/uL (0); Metamyelocytes % 1 %; Monocytes # (M) 1.19 k/uL (0-1.0); Neutrophils % (M) 69 %; Nucleated Red Blood Cells 1 /100 WBC (0-0); Total Cells Counted 200; WBC 13.2 k/uL (3.8-10.6)
[2019-02-24 07:16] LABS: Polychromasia Present; Target Cells Present
--- NOTE | 2019-02-24 07:44 | XR ---
EXAMINATION TYPE: XR abdomen 1V DATE OF EXAM: 02/24/2019 7:29 AM CLINICAL HISTORY: NG tube placement. TECHNIQUE: Single AP portable upright view of the abdomen is obtained. COMPARISON: CTA with runoff 8 days earlier FINDINGS: Nasogastric tube projects below diaphragm. Gas is seen in nondistended stomach. There is additional g as seen in slightly prominent small and large bowel loops scattered throughout the visualized abdomen . No pneumoperitoneum. Lung bases are clear. Pelvis not included. Overlying EKG leads. Slightly subop timal due to portable technique. IMPRESSION: NEW Nasogastric tube projects below diaphragm.
[2019-02-24] MEDS: POTASSIUM BICARBONATE/CIT AC 20 MEQ TABLET.EFF NG-TUBE SCH ×2 (08:04→09:23)
[2019-02-24] MEDS: LACTULOSE 20 GM/30 ML CUP PO SCH (08:05)
[2019-02-24] MEDS: THIAMINE 100 MG/ML 2 ML VIAL IVP SCH (08:23)
[2019-02-24] MEDS: PANTOPRAZOLE 40 MG/10 ML VIAL IV SCH (08:23)
[2019-02-24] MEDS: RIFAXIMIN 550 MG TABLET PO SCH ×2 (08:24→20:56)
--- NOTE | 2019-02-24 08:53 | XR ---
EXAMINATION TYPE: XR chest 1V portable DATE OF EXAM: 02/24/2019 COMPARISON: 02/17/2019 HISTORY: Shortness of breath TECHNIQUE: Single frontal view of the chest is obtained. FINDINGS: A basilar subsegmental consolidation with reduced inspiration. NG tube in the left upper q uadrant. No pneumothorax. Heart mildly prominent.. No definite pleural effusion. IMPRESSION: Basilar atelectasis favored over pneumonia correlate clinically.
--- NOTE | 2019-02-24 09:05 | CDI ---
Documentation Clarification Form Date: 02/23/2019 09:57:39 AM From: Clarita Montano RN CCDS Admit Date: 02/16/2019 09:21:00 PM Patient Name: Isabella Aguirre Visit Number: [id number] Discharge Date: ATTENTION: The Clinical Documentation Specialists (CDI) and [facility] Coding Staff appreciate your assistance in clarifying documentation. Please respond to the clarification below the line at the bottom and electronically sign. The CDI & [facility] Coding staff will review the response and follow-up if needed. Please note: Queries are made part of the Legal Health Record. If you have any questions, please contact the author of this message via ITS. Dr. Doretha Ennis MD Questionable aspiration pneumonia on broad spectrum antibiotics is documented in the GI progress note 02/22/2018 History/Risk Factors: CX02/16/2019 Lungs are clear of infiltrate. CXR 02/17/2019 Subsegmental changes at both lung bases Lung assessment H & P 02/17 Are diminished breath sounds x 4. Clinical Indicators: Treatment: Started 02/16 Zosyn ivpb Q 8Hrs For each diagnosis, documentation must be clear to determine if the condition was present at the time of the patients inpatient admission or developed during the hospital stay. Please clarify if Aspiration Pneumonia: ____ Aspiration Pneumonia Ruled Out. ____Aspiration Pneumonia POA ____Aspiration Pneumonia present not POA ____ Other (Last Revision: May 2017) Aspiration pneumonia ruled out Doretha LINDER
--- NOTE | 2019-02-24 10:54 | P.PN ---
<Chelsie Walsh M - Last Filed: 02/24/19 10:54> Subjective Progress Note Date: 02/24/19 Principal diagnosis: Altered mental status secondary to suspected hepatic encephalopathy and hyperammonemia On 02/20/2019 patient is seen in follow-up in intensive care unit, she is still quite obtunded, withdraws from noxious stimuli sluggishly, vital signs are stable, room air pulse ox is 97%, hemodynamically patient is stable, in sinus mechanism with a rate of 86 BPM, blood pressures 133/79, today's labs have been reviewed showing increase in ammonia level up to 111, patient remains on lactulose at 30 g 3 times a day via the NG tube, she is also receiving nutrition with a viral high-protein at a rate of 50 with a goal of 50 with standard water flushes, on yesterday's labs patient was noted to be hyper nature ischemic, she remains on D5W infusion at a rate of 150 ML per hour, and today's labs show improvement in the serum sodium which is down to 146 on today's labs, renal profile has slightly improved, with BUN at 23, and creatinine is 1.12, patient remains acidotic, although he did slightly improve, and CO2 on today's labs14. Liver enzymes are improving, AST down to 151, ALT is 76, and alkaline phosphatase is stable at 176. Blood culture has shown no growth. No leukocytosis, with blood cell count is 10.5, patient remains on empiric antibiotics, she has been afebrile. Gilmore catheter is in place patient is producing 2240 ML per hour of dark colored urine, FMS in place with liquid output. On 02/23/2019 patient seen in follow-up in the intensive care unit. Patient s awake and alert, she remains confused, but she was able to tell us her name, she is disoriented to place or time, but she is following simple commands, she is moving all 4 extremities. Vital signs are stable, room air pulse ox is 92%, hemodynamically stable, slightly tachycardic in sinus mechanism with a rate of 101 BPM, afebrile. Is on the positive for some fine basilar crackles. These labs have been reviewed, showing cell count of 16, hemoglobin is 10.2, sodium is 148, potassium is 3.2, chloride is 116, B1 is 30, creatinine 0.84 and ammonia level is improving down to 49, patient remains on a combination of lactulose and Xifaxan, patient has had extensive diarrhea, 4800 mL in liquid stool in the last 24 hours, has produced 945 mL in urine output. She remains nothing by mouth, although patient is now more awake, and she is thirsty and she is requesting some water. Remains on tube feedings at this time, with 200 mL free water flushes every 4 hours. On 02/24/2019 patient seen in follow-up intensive care unit, she is awake and alert, oriented to person only, disoriented to time and place, simple commands, moving all 4 extremities although she does have severe generalized weakness, ap petite still remains poor, NG tube remains in place, she did swallow evaluation at the bedside with speech therapy and modified diet was recommended with pured diet and thin liquids. No signs have been stable, room air pulse ox is 95-98%, she is afebrile, intensive, no acute distress, no signs of respiratory difficulty, lung sounds are positive for fine bibasilar crackles, no rhonchi or wheezing. His labs have been reviewed, showing white blood cell count of 13.2, hemoglobin of 10.3, sodium is 140, potassium 3.0, chloride is 100, CO2 36, B1 is 35 creatinine 0.79, ammonia level is less than 9 and today's labs, bilirubin is 12.5, AST is 259, ALT is 106, and alkaline phosphatase is 275. NG tube remains in place and with tube feedings infusing Objective - Vital Signs Vital signs: Vital Signs Temp 97.9 F 02/24/19 08:00 Pulse 90 02/24/19 09:00 Resp 19 02/24/19 09:00 BP 123/89 02/24/19 09:00 Pulse Ox 98 02/24/19 09:00 Intake & Output 02/23/19 02/24/19 02/24/19 18:59 06:59 18:59 Intake Total 1460 1470 675 Output Total 370 415 110 Balance 1090 1055 565 Weight 72.7 kg Intake: IV 360 270 90 Dextrose 5% in Water 1, 360 270 90 000 ml @ 30 mls/hr IV . Q24H SUSANNA with Sodium Bicarb (1 Meq/ml) 150 ml Rx#:[id number] Oral 300 Tube Feeding 600 600 225 Other 200 600 360 Output: Urine 370 415 110 Other: Voiding Method Indwelling Catheter Indwelling Catheter Indwelling Catheter - Exam GENERAL EXAM: 58-year-old female, jaundiced, awake oriented to person, disoriented to time and place HEAD: Normocephalic/atraumatic. EYES: Normal reaction of pupils, equal size. Conjunctiva pink, sclera white. NOSE: Clear with pink turbinates. NG tube is in place with the tube feedings i nfusing at a rate of 50 with a goal of 50 of vital AF, water flushes at 200 mouth every 4 hours THROAT: No erythema or exudates. NECK: No masses, no JVD, no thyroid enlargement, no adenopathy. CHEST: No chest wall deformity. Symmetrical expansion. LUNGS: Equal air entry with fine basilar crackles, wheeze, rhonchi or dullness. CVS: Regular rate and rhythm, normal S1 and S2, no gallops, no murmurs, no rubs ABDOMEN: Firm, nontender. No hepatosplenomegaly, sluggish bowel sounds, no guarding or rigidity. EXTREMITIES: No clubbing, no edema, no cyanosis, 2+ pulses and upper and lower extremities. MUSCULOSKELETAL: Muscle strength and tone normal. SPINE: No scoliosis or deformity SKIN: No rashes CENTRAL NERVOUS SYSTEM: Awake, oriented to person. Able to verbally respond, however generally weak, her voice is weak, but she is able to tell us her name and is following simple commands No focal deficits, tone is normal in all 4 extremities. - Labs CBC & Chem 7: 02/24/19 05:45 02/24/19 05:45 Labs: Abnormal Lab Results - Last 24 Hours (Table) 02/23/19 02/23/19 02/23/19 Range/Units 14:15 18:15 23:43 WBC (3.8-10.6) k/uL RBC (3.80-5.40) m/uL Hgb (11.4-16.0) gm/dL Hct (34.0-46.0) % MCV (80.0-100.0) fL MCH (25.0-35.0) pg RDW (11.5-15.5) % Plt Count (150-450) k/uL Neutrophils # (Manual) (1.3-7.7) k/uL Monocytes # (Manual) (0-1.0) k/uL Metamyelocytes # (Man) (0) k/uL Nucleated RBCs (0-0) /100 WBC Macrocytosis Potassium (3.5-5.1) mmol/L Carbon Dioxide (22-30) mmol/L BUN (7-17) mg/dL Glucose (74-99) mg/dL POC Glucose (mg/dL) 131 H 143 H 121 H (75-99) mg/dL Calcium (8.4-10.2) mg/dL Total Bilirubin (0.2-1.3) mg/dL AST (14-36) U/L ALT (4-34) U/L Alkaline Phosphatase (38-126) U/L Total Protein (6.3-8.2) g/dL Albumin (3.5-5.0) g/dL 02/24/19 02/24/19 02/24/19 Range/Units 05:45 05:45 05:49 WBC 13.2 H (3.8-10.6) k/uL RBC 2.52 L (3.80-5.40) m/uL Hgb 10.3 L (11.4-16.0) gm/dL Hct 32.4 L (34.0-46.0) % MCV 128.3 H (80.0-100.0) fL MCH 40.7 H (25.0-35.0) pg RDW 17.4 H (11.5-15.5) % Plt Count 77 L (150-450) k/uL Neutrophils # (Manual) 9.60 H (1.3-7.7) k/uL Monocytes # (Manual) 1.19 H (0-1.0) k/uL Metamyelocytes # (Man) 0.13 H (0) k/uL Nucleated RBCs 1 H (0-0) /100 WBC Macrocytosis Marked A Potassium 3.0 L (3.5-5.1) mmol/L Carbon Dioxide 36 H (22-30) mmol/L BUN 35 H (7-17) mg/dL Glucose 331 H (74-99) mg/dL POC Glucose (mg/dL) 582 H (75-99) mg/dL Calcium 6.9 L (8.4-10.2) mg/dL Total Bilirubin 12.5 H (0.2-1.3) mg/dL AST 259 H (14-36) U/L ALT 106 H (4-34) U/L Alkaline Phosphatase 275 H (38-126) U/L Total Protein 5.5 L (6.3-8.2) g/dL Albumin 2.2 L (3.5-5.0) g/dL 02/24/19 Range/Units 05:50 WBC (3.8-10.6) k/uL RBC (3.80-5.40) m/uL Hgb (11.4-16.0) gm/dL Hct (34.0-46.0) % MCV (80.0-100.0) fL MCH (25.0-35.0) pg RDW (11.5-15.5) % Plt Count (150-450) k/uL Neutrophils # (Manual) (1.3-7.7) k/uL Monocytes # (Manual) (0-1.0) k/uL Metamyelocytes # (Man) (0) k/uL Nucleated RBCs (0-0) /100 WBC Macrocytosis Potassium (3.5-5.1) mmol/L Carbon Dioxide (22-30) mmol/L BUN (7-17) mg/dL Glucose (74-99) mg/dL POC Glucose (mg/dL) 133 H (75-99) mg/dL Calcium (8.4-10.2) mg/dL Total Bilirubin (0.2-1.3) mg/dL AST (14-36) U/L ALT (4-34) U/L Alkaline Phosphatase (38-126) U/L Total Protein (6.3-8.2) g/dL Albumin (3.5-5.0) g/dL Assessment and Plan Plan: Assessment: #1. Altered mental status secondary to hepatic encephalopathy and hyperammonemia, moving, and on today's labs ammonia level is down to 49, patient is awake and alert, mentation is improved, patient is following simple commands and is able to provide simple verbal answers #2. Severe alcohol abuse with alcoholic liver disease and cirrhosis #3. Elevated ammonia levels causing mental status changes, on lactulose and Xifaxan, improving #4. Abdominal ascites #5. Coagulopathy of alcohol abuse #6. Anemia #7. Elevated transaminases, trending down #8. Alcoholic pancreatitis with elevated lipase #9. Acute kidney injury #10. Hypernatremia, slightly worse on today's labs, patient is having large amount of liquid stool output, will cut back to lactulose to once daily. Improving on today's labs, on 02/24/2019 and it is down to 140 #11. Deep tissue injury and stage II pressure ulcers on upper middle back and on sacrum, present on admission related to prolonged downtime after a fall at home Plan: Patient is awake, oriented to person, still confused and disoriented to time and place, she is moving all 4 extremities, no focal neuro deficits noted, she is following command. She passed her swallow evaluation, and modified diet was recommended with thin liquids, will keep the NG tube and monitor her oral intake sure she is meeting her caloric needs. Continue current dose lactulose and Xifaxan, ammonia level is less than 9. Maintain aspiration precautions, teen safety precautions, physical therapy consultation increase activity as tolerated, yet has significantly subsided, patient is receiving adequate amount of urine, today's labs have been reviewed, serum sodium is within normal limits. May consider for transfer out of intensive care unit remains stable. I performed a history & physical examination of the patient and discussed their management with my nurse practitioner, Chelsie Walsh. I reviewed the nurse practitioner's note and agree with the documented findings and plan of care. Lung sounds are positive for diminished pressors. The findings and the impression was discussed with the patient. I attest to the documentation by the nurse practitioner. Time with Patient: Less than 30 <Ho Lockwood - Last Filed: 02/24/19 11:17> Objective - Vital Signs Vital signs: Vital Signs Temp 97.9 F 02/24/19 08:00 Pulse 90 02/24/19 11:00 Resp 16 02/24/19 11:00 BP 102/73 02/24/19 11:00 Pulse Ox 96 02/24/19 11:00 Intake & Output 02/23/19 02/24/19 02/24/19 18:59 06:59 18:59 Intake Total 1460 1470 935 Output Total 370 415 162 Balance 1090 1055 773 Weight 72.7 kg 72.7 kg Intake: IV 360 270 150 Dextrose 5% in Water 1, 360 270 150 000 ml @ 30 mls/hr IV . Q24H SUSANNA with Sodium Bicarb (1 Meq/ml) 150 ml Rx#:[id number] Oral 300 Tube Feeding 600 600 425 Other 200 600 360 Output: Urine 370 415 162 Other: Voiding Method Indwelling Catheter Indwelling Catheter Indwelling Catheter - Labs CBC & Chem 7: 02/24/19 05:45 02/24/19 05:45 Labs: Abnormal Lab Results - Last 24 Hours (Table) 02/23/19 02/23/19 02/23/19 Range/Units 14:15 18:15 23:43 WBC (3.8-10.6) k/uL RBC (3.80-5.40) m/uL Hgb (11.4-16.0) gm/dL Hct (34.0-46.0) % MCV (80.0-100.0) fL MCH (25.0-35.0) pg RDW (11.5-15.5) % Plt Count (150-450) k/uL Neutrophils # (Manual) (1.3-7.7) k/uL Monocytes # (Manual) (0-1.0) k/uL Metamyelocytes # (Man) (0) k/uL Nucleated RBCs (0-0) /100 WBC Macrocytosis Potassium (3.5-5.1) mmol/L Carbon Dioxide (22-30) mmol/L BUN (7-17) mg/dL Glucose (74-99) mg/dL POC Glucose (mg/dL) 131 H 143 H 121 H (75-99) mg/dL Calcium (8.4-10.2) mg/dL Total Bilirubin (0.2-1.3) mg/dL AST (14-36) U/L ALT (4-34) U/L Alkaline Phosphatase (38-126) U/L Total Protein (6.3-8.2) g/dL Albumin (3.5-5.0) g/dL 02/24/19 02/24/19 02/24/19 Range/Units 05:45 05:45 05:49 WBC 13.2 H (3.8-10.6) k/uL RBC 2.52 L (3.80-5.40) m/uL Hgb 10.3 L (11.4-16.0) gm/dL Hct 32.4 L (34.0-46.0) % MCV 128.3 H (80.0-100.0) fL MCH 40.7 H (25.0-35.0) pg RDW 17.4 H (11.5-15.5) % Plt Count 77 L (150-450) k/uL Neutrophils # (Manual) 9.60 H (1.3-7.7) k/uL Monocytes # (Manual) 1.19 H (0-1.0) k/uL Metamyelocytes # (Man) 0.13 H (0) k/uL Nucleated RBCs 1 H (0-0) /100 WBC Macrocytosis Marked A Potassium 3.0 L (3.5-5.1) mmol/L Carbon Dioxide 36 H (22-30) mmol/L BUN 35 H (7-17) mg/dL Glucose 331 H (74-99) mg/dL POC Glucose (mg/dL) 582 H (75-99) mg/dL Calcium 6.9 L (8.4-10.2) mg/dL Total Bilirubin 12.5 H (0.2-1.3) mg/dL AST 259 H (14-36) U/L ALT 106 H (4-34) U/L Alkaline Phosphatase 275 H (38-126) U/L Total Protein 5.5 L (6.3-8.2) g/dL Albumin 2.2 L (3.5-5.0) g/dL 02/24/19 Range/Units 05:50 WBC (3.8-10.6) k/uL RBC (3.80-5.40) m/uL Hgb (11.4-16.0) gm/dL Hct (34.0-46.0) % MCV (80.0-100.0) fL MCH (25.0-35.0) pg RDW (11.5-15.5) % Plt Count (150-450) k/uL Neutrophils # (Manual) (1.3-7.7) k/uL Monocytes # (Manual) (0-1.0) k/uL Metamyelocytes # (Man) (0) k/uL Nucleated RBCs (0-0) /100 WBC Macrocytosis Potassium (3.5-5.1) mmol/L Carbon Dioxide (22-30) mmol/L BUN (7-17) mg/dL Glucose (74-99) mg/dL POC Glucose (mg/dL) 133 H (75-99) mg/dL Calcium (8.4-10.2) mg/dL Total Bilirubin (0.2-1.3) mg/dL AST (14-36) U/L ALT (4-34) U/L Alkaline Phosphatase (38-126) U/L Total Protein (6.3-8.2) g/dL Albumin (3.5-5.0) g/dL Assessment and Plan Plan: Clinically improved. Much more awake and alert. We'll do an official swallow evaluation and will remove the NG tube if she passes a swallow. Stop the bicarb infusion. Stop the free water flushes. The serum bicarbonate of 37. His sodium level is down to 140. Continue the lactulose. Continue the Xifaxan. Ammonia level is normalized. Bilirubin is improving. We'll continue to follow. Consult PT. Passive range of motion. Unable to sit up on a chair.. Legs are quite weak. Strength in the arms are improving. We'll continue to follow.
[2019-02-24 11:34] LABS: Glucose,Whole Blood 145 mg/dL (75-99)
--- NOTE | 2019-02-24 13:24 | FL ---
EXAMINATION TYPE: FL barium swallow w video DATE OF EXAM: 02/24/2019 MODIFIED SWALLOW / DEGLUTITION STUDY CLINICAL HISTORY: Dysphagia. TECHNIQUE: Deglutition study is performed utilizing thin liquid barium, honey and nectar thick liqui d barium, thin barium thick pudding. Total 1 minute 23 seconds of fluoroscopic time utilized during p rocedure. 0 spot images saved to PACS. COMPARISON: None. FINDINGS: Nasogastric tube noted making swallowing difficult for patient. The oral and pharyngeal pha ses show satisfactory initiation and propagation with all modalities tested accounting for nasogastri c tube presence. There is no evidence of penetration or aspiration with any modality tested. No sig nificant pharyngeal residue was appreciated. IMPRESSION: No penetration or aspiration observed. Please refer to speech therapist notes for furthe r details if necessary.
[2019-02-24] MEDS ORDERED: POTASSIUM CHLORIDE ER 20 MEQ TAB.ER PO SCH (14:00)
[2019-02-24 16:53] LABS: Glucose,Whole Blood 99 mg/dL (75-99)
--- NOTE | 2019-02-24 17:46 | P.PN ---
Subjective Progress Note Date: 02/24/19 This is a 58-year-old female admitted with altered mental status secondary to hepatic encephalopathy, alcohol abuse, cirrhosis, hyperammonia and multiple other medical issues. CO2 14,on bicarb drip. Maintained on empiric antibiotics. Afebrile, normal WBC, blood cultures no growth in 72 hours. INR 1.6. T bili remains at 14.6, transaminases trending down. Ammonia 111, on lactulose. Abdominal ultrasound reporting trace amount of ascites, inadequate for paracentesis. Vital signs stable. Patient was on D5 W with improvement in sodium down to 146. Renal function improving down to 1.12. 02/21/2019 continues on Xifaxan, lactulose, ammonia 107. T bili 14.7, LFTs remain elevated. Potassium 3.1 being replaced. Afebrile, WBC 15.3, blood cultures negative. Bicarb 17, on bicarb drip. Sodium level improving. Evaluated by GI with recommendations noted. 02/22/2019 ammonia level down to 84, patient alert, following basic commands. Bicarb 25, on bicarb drip. Tolerating tube feeds at goal with minimal to no residuals.Sodium 147. Vital signs stable, maintaining O2 sats in the 90s on room air. T-max 99.2 WBC up to 18.8. Potassium 2.8. 02/23/2019 ammonia continues trending down, currently 49. More alert today, alert and oriented to person, following simple commands. Maintained on tube feeds and aspiration precautions. 02/24/2019 remains alert to person only, significantly weak. Ammonia level significantly decreased to less than 9. Speech therapy evaluated patient at bedside recommended pured with thin liquids. NG tube remains in place. Blood sugars controlled. Afebrile, WBC 13.2. Blood cultures no growth. Sodium 140, potassium 3 ,bicarb 36, creatinine 0.79, T bili 12.5, AST 259, ALT 106, ALK PHOS 275, albumin 2.2. Objective - Vital Signs Vital signs: Vital Signs Temp 98.9 F 02/24/19 16:00 Pulse 87 02/24/19 17:00 Resp 14 02/24/19 17:00 BP 109/56 02/24/19 17:00 Pulse Ox 92 L 02/24/19 17:00 Intake & Output 02/23/19 02/24/19 02/24/19 18:59 06:59 18:59 Intake Total 1460 1470 1855 Output Total 370 415 322 Balance 1090 1055 1533 Weight 72.7 kg 72.7 kg Intake: IV 360 270 150 Dextrose 5% in Water 1, 360 270 150 000 ml @ 30 mls/hr IV . Q24H SUSANNA with Sodium Bicarb (1 Meq/ml) 150 ml Rx#:[id number] Oral 300 840 Tube Feeding 600 600 475 Other 200 600 390 Output: Urine 370 415 322 Other: Voiding Method Indwelling Catheter Indwelling Catheter Indwelling Catheter - Exam PHYSICAL EXAM: VITAL SIGNS: As above GENERAL: Jaundiced, encephalopathic, extremely weak, alert and oriented 1 to person, following basic commands HEENT: Conjunctivae normal. eyes normal. NG tube present. NECK: No JVD. No thyroid enlargement. No LNs CARDIOVASCULAR: S1, S2 regular. Mild tachycardia, No murmur RESPIRATION: Breath sounds clear, diminished in the bases. No rhonchi, no wheezing, fine basilar crackles. ABDOMEN: Firm, nontender ,No guarding. no masses palpable. No hepatosplenomegaly.Hypoactive Bowel sounds heard. LEGS: No edema. no swelling, NERVOUS SYSTEM:mental status slowly improving , alert and oriented to person, disoriented to place and time, following simple commands. No focal deficits. Skin: no rash, upper middle back and sacrum stage II pressure ulcers, present on admission - Labs CBC & Chem 7: 02/24/19 05:45 02/24/19 11:50 Labs: Abnormal Lab Results - Last 24 Hours (Table) 02/23/19 02/23/19 02/24/19 Range/Units 18:15 23:43 05:45 WBC (3.8-10.6) k/uL RBC (3.80-5.40) m/uL Hgb (11.4-16.0) gm/dL Hct (34.0-46.0) % MCV (80.0-100.0) fL MCH (25.0-35.0) pg RDW (11.5-15.5) % Plt Count (150-450) k/uL Neutrophils # (Manual) (1.3-7.7) k/uL Monocytes # (Manual) (0-1.0) k/uL Metamyelocytes # (Man) (0) k/uL Nucleated RBCs (0-0) /100 WBC Macrocytosis Potassium 3.0 L (3.5-5.1) mmol/L Carbon Dioxide 36 H (22-30) mmol/L BUN 35 H (7-17) mg/dL Glucose 331 H (74-99) mg/dL POC Glucose (mg/dL) 143 H 121 H (75-99) mg/dL Calcium 6.9 L (8.4-10.2) mg/dL Total Bilirubin 12.5 H (0.2-1.3) mg/dL AST 259 H (14-36) U/L ALT 106 H (4-34) U/L Alkaline Phosphatase 275 H (38-126) U/L Total Protein 5.5 L (6.3-8.2) g/dL Albumin 2.2 L (3.5-5.0) g/dL 02/24/19 02/24/19 02/24/19 Range/Units 05:45 05:49 05:50 WBC 13.2 H (3.8-10.6) k/uL RBC 2.52 L (3.80-5.40) m/uL Hgb 10.3 L (11.4-16.0) gm/dL Hct 32.4 L (34.0-46.0) % MCV 128.3 H (80.0-100.0) fL MCH 40.7 H (25.0-35.0) pg RDW 17.4 H (11.5-15.5) % Plt Count 77 L (150-450) k/uL Neutrophils # (Manual) 9.60 H (1.3-7.7) k/uL Monocytes # (Manual) 1.19 H (0-1.0) k/uL Metamyelocytes # (Man) 0.13 H (0) k/uL Nucleated RBCs 1 H (0-0) /100 WBC Macrocytosis Marked A Potassium (3.5-5.1) mmol/L Carbon Dioxide (22-30) mmol/L BUN (7-17) mg/dL Glucose (74-99) mg/dL POC Glucose (mg/dL) 582 H 133 H (75-99) mg/dL Calcium (8.4-10.2) mg/dL Total Bilirubin (0.2-1.3) mg/dL AST (14-36) U/L ALT (4-34) U/L Alkaline Phosphatase (38-126) U/L Total Protein (6.3-8.2) g/dL Albumin (3.5-5.0) g/dL 02/24/19 Range/Units 11:32 WBC (3.8-10.6) k/uL RBC (3.80-5.40) m/uL Hgb (11.4-16.0) gm/dL Hct (34.0-46.0) % MCV (80.0-100.0) fL MCH (25.0-35.0) pg RDW (11.5-15.5) % Plt Count (150-450) k/uL Neutrophils # (Manual) (1.3-7.7) k/uL Monocytes # (Manual) (0-1.0) k/uL Metamyelocytes # (Man) (0) k/uL Nucleated RBCs (0-0) /100 WBC Macrocytosis Potassium (3.5-5.1) mmol/L Carbon Dioxide (22-30) mmol/L BUN (7-17) mg/dL Glucose (74-99) mg/dL POC Glucose (mg/dL) 145 H (75-99) mg/dL Calcium (8.4-10.2) mg/dL Total Bilirubin (0.2-1.3) mg/dL AST (14-36) U/L ALT (4-34) U/L Alkaline Phosphatase (38-126) U/L Total Protein (6.3-8.2) g/dL Albumin (3.5-5.0) g/dL Assessment and Plan Assessment: Altered mental status secondary to septic hepatic encephalopathy and Hyperammonia, present on admission Severe Alcohol abuse with alcoholic liver disease, cirrhosis Abdominal ascites, not significant per ultrasound Coagulopathy secondary to alcohol abuse Anemia of chronic disease Alcoholic pancreatitis Acute renal failure, improving Hypernatremia, improving Hypokalemia Bibasilar atelectasis Stage II pressure ulcers now back and sacrum ,present on admission Plan: Continue current medication regime ,monitoring and symptomatic treatment. Strict aspiration precautions. Potassium replacement as per replacement protocol. PT/OT. Follow closely with multiple consults. Prognosis guarded given multiple complex medical issues. The impression and plan of care has been dictated as directed. : I performed a history and examination of this patient, discussed the same with the dictator. I agree with the dictator's note ,documented as a scribe. Any additional findings or plans will be noted.
--- NOTE | 2019-02-24 19:45 | PN ---
PROGRESS NOTE DATE OF SERVICE: February 24, 2019. REQUESTING PHYSICIAN: Dr. Hilario Hudson. HISTORY OF PRESENT ILLNESS: The patient is a 58-year-old pleasant white female with alcoholic cirrhosis of the liver with acute alcoholic hepatitis and severe hepatic encephalopathy, admitted to the intensive care unit with altered mental status for the last 5 days duration. She has been on Xifaxan and lactulose and she is slowly improving. She is more responsive today. She denies any abdominal pain. NG tube is out. Oral feeds are going to be started today. PHYSICAL EXAMINATION: Appears comfortable no apparent distress. Vital signs is stable. Blood pressure is 130/86, pulse rate 82 per minute and afebrile. HEENT examination unremarkable. Conjunctivae pink. Sclerae deeply icteric. Oral cavity no lesions. NECK: No JVD or lymph node enlargement. CHEST: Clear to auscultation. HEART: Regular rate and rhythm. ABDOMEN: Soft, slightly distended. Bowel sounds are positive. No organomegaly. EXTREMITIES: No pedal edema. SKIN: No rashes. NEUROLOGIC: Alert and oriented to name but not to place and time. LABS: From today, WBC 13.2, hemoglobin 10.3, platelets are 77,000. Bilirubin is 12.5, AST 259, ALT 106, and alkaline phosphatase 275. Ammonia level is less than 9. IMPRESSION: 1. Acute hepatic encephalopathy, resolved. Ammonia levels have normalized. She remains on Xifaxan and lactulose. 2. Acute alcoholic hepatitis with alcoholic cirrhosis of the liver. The bilirubin is gradually improving. It is 12.5 g/dL. 3. Mild abdominal distention, possibly mild ascites. 4. Leukocytosis most likely explained on the basis of acute alcoholic hepatitis. RECOMMENDATIONS: 1. Continue with current management. 2. Repeat labs on a daily basis. 3. Continue Xifaxan and lactulose. 4. Start oral feeds. 5. We will follow with you closely. Thank you for this consultation. MMODL / IJN: [id number] /
[2019-02-24 20:47] LABS: Glucose,Whole Blood 117 mg/dL (75-99)
[2019-02-25 05:46] LABS: Anisocytosis Slight; Basophils # (A) 0.1 k/uL (0-0.2); Basophils % (A) 0 %; Eosinophils # (A) 0.1 k/uL (0-0.7); Eosinophils % (A) 1 %; HCT 29.4 % (34.0-46.0); HGB 9.5 gm/dL (11.4-16.0); Hypochromasia Moderate; Lymphocytes # (A) 1.7 k/uL (1.0-4.8); Lymphocytes % (A) 10 %; MCH 40.7 pg (25.0-35.0); MCHC 32.3 g/dL (31.0-37.0); Macrocytosis Marked; Mean Platelet Volume 11.4; Monocytes # (A) 0.7 k/uL (0-1.0); Monocytes % (A) 4 %; Neutrophils # (A) 13.7 k/uL (1.3-7.7); Neutrophils % (A) 83 %; RBC 2.33 m/uL (3.80-5.40); RDW 17.5 % (11.5-15.5); WBC 16.5 k/uL (3.8-10.6)
[2019-02-25 06:14] LABS: Platelet Count 82 k/uL (150-450)
[2019-02-25 06:44] LABS: Albumin 2.1 g/dL (3.5-5.0); Calcium 7.5 mg/dL (8.4-10.2); Potassium 4.1 mmol/L (3.5-5.1); Total Bilirubin 11.5 mg/dL (0.2-1.3); Total Protein 5.2 g/dL (6.3-8.2)
[2019-02-25 06:50] LABS: Glucose,Whole Blood 90 mg/dL (75-99)
[2019-02-25] MEDS: INSULIN ASPART (NovoLOG) 100 UNIT/ML VIAL SQ SCH ×4 (07:12→20:27)
[2019-02-25] MEDS: THIAMINE 100 MG/ML 2 ML VIAL IVP SCH (09:02)
[2019-02-25] MEDS: LACTULOSE 20 GM/30 ML CUP PO SCH (09:02)
[2019-02-25] MEDS: PANTOPRAZOLE 40 MG/10 ML VIAL IV SCH (09:02)
[2019-02-25] MEDS: RIFAXIMIN 550 MG TABLET PO SCH ×2 (09:03→21:24)
--- NOTE | 2019-02-25 09:39 | P.PN ---
Subjective Progress Note Date: 02/25/19 Altered mental status secondary to suspected hepatic encephalopathy and hyperam monemia On 02/20/2019 patient is seen in follow-up in intensive care unit, she is still quite obtunded, withdraws from noxious stimuli sluggishly, vital signs are stable, room air pulse ox is 97%, hemodynamically patient is stable, in sinus mechanism with a rate of 86 BPM, blood pressures 133/79, today's labs have been reviewed showing increase in ammonia level up to 111, patient remains on lac tulose at 30 g 3 times a day via the NG tube, she is also receiving nutrition with a viral high-protein at a rate of 50 with a goal of 50 with standard water flushes, on yesterday's labs patient was noted to be hyper nature ischemic, she remains on D5W infusion at a rate of 150 ML per hour, and today's labs show improvement in the serum sodium which is down to 146 on today's labs, renal profile has slightly improved, with BUN at 23, and creatinine is 1.12, patient remains acidotic, although he did slightly improve, and CO2 on today's labs14. Liver enzymes are improving, AST down to 151, ALT is 76, and alkaline phosphatase is stable at 176. Blood culture has shown no growth. No leukocytos is, with blood cell count is 10.5, patient remains on empiric antibiotics, she has been afebrile. Gilmore catheter is in place patient is producing 2240 ML per hour of dark colored urine, FMS in place with liquid output. On 02/23/2019 patient seen in follow-up in the intensive care unit. Patient s awake and alert, she remains confused, but she was able to tell us her name, she is disoriented to place or time, but she is following simple commands, she is moving all 4 extremities. Vital signs are stable, room air pulse ox is 92%, hemodynamically stable, slightly tachycardic in sinus mechanism with a rate of 101 BPM, afebrile. Is on the positive for some fine basilar crackles. These labs have been reviewed, showing cell count of 16, hemoglobin is 10.2, sodium is 148, potassium is 3.2, chloride is 116, B1 is 30, creatinine 0.84 and ammonia level is improving down to 49, patient remains on a combination of lactulose and Xifaxan, patient has had extensive diarrhea, 4800 mL in liquid stool in the last 24 hours, has produced 945 mL in urine output. She remains nothing by mouth, although patient is now more awake, and she is thirsty and she is requesting some water. Remains on tube feedings at this time, with 200 mL free water flushes every 4 hours. On 02/24/2019 patient seen in follow-up intensive care unit, she is awake and alert, oriented to person only, disoriented to time and place, simple commands, moving all 4 extremities although she does have severe generalized weakness, appetite still remains poor, NG tube remains in place, she did swallow evaluation at the bedside with speech therapy and modified diet was recommended with pured diet and thin liquids. No signs have been stable, room air pulse ox is 95-98%, she is afebrile, intensive, no acute distress, no signs of respiratory difficulty, lung sounds are positive for fine bibasilar crackles, no rhonchi or wheezing. His labs have been reviewed, showing white blood cell count of 13.2, hemoglobin of 10.3, sodium is 140, potassium 3.0, chloride is 100, CO2 36, B1 is 35 creatinine 0.79, ammonia level is less than 9 and today's labs, bilirubin is 12.5, AST is 259, ALT is 106, and alkaline phosphatase is 275 . NG tube remains in place and with tube feedings infusing On 02/25/2019 on seeing the patient for a follow-up. NG tube is removed. She is awake and alert. Further drop in ammonia level. The patient is taking regular diet for now. She remains on a combination of Xifaxan and lactulose. No altered mentation. His communicating with us adequately. In terms of her fluid support, she was taken off the bicarb drip. Serum bicarb is down to 28. She was taken off the free water upper limits. His sodium level is on 03/18/1935. Bilirubin is improving. Bilirubin level is down to 11.5. LFTs are still abnormal. Albumin level is at 2.1. She has stage II sacral decub ulceration and OptiForm is being applied to the area. She is weak. We'll try to get it up on a bedside recliner today. Objective - Vital Signs Vital signs: Vital Signs Temp 97.9 F 02/25/19 08:00 Pulse 80 02/25/19 09:00 Resp 16 02/25/19 09:00 BP 94/58 02/25/19 09:00 Pulse Ox 95 02/25/19 09:00 Intake & Output 02/24/19 02/25/19 02/25/19 18:59 06:59 18:59 Intake Total 2215 600 400 Output Total 342 350 115 Balance 1873 250 285 Weight 72.7 kg 75.7 kg Intake: IV 150 Dextrose 5% in Water 1, 150 000 ml @ 30 mls/hr IV . Q24H SUSNANA with Sodium Bicarb (1 Meq/ml) 150 ml Rx#:[id number] Oral 1200 600 400 Tube Feeding 475 Other 390 Output: Urine 342 350 115 Other: Voiding Method Indwelling Catheter Indwelling Catheter - Exam GENERAL EXAM: Obtunded, 58-year-old female, jaundiced , awake and alert and communicating at this point in time NG tube has been removed EYES: Normal reaction of pupils, equal size. Conjunctiva pink, sclera white. NOSE: Clear with pink turbinates. THROAT: No erythema or exudates. NECK: No masses, no JVD, no thyroid enlargement, no adenopathy. CHEST: No chest wall deformity. Symmetrical expansion. LUNGS: Equal air entry with no crackles, wheeze, rhonchi or dullness. CVS: Regular rate and rhythm, normal S1 and S2, no gallops, no murmurs, no rubs ABDOMEN: Firm, nontender. No hepatosplenomegaly, sluggish bowel sounds, no guarding or rigidity. EXTREMITIES: No clubbing, no edema, no cyanosis, 2+ pulses and upper and lower extremities. MUSCULOSKELETAL: Muscle strength and tone normal. SPINE: No scoliosis or deformity SKIN: The patient has stage II ulcer on her buttock an OptiForm is applied to the area. CENTRAL NERVOUS SYSTEM: Hepatic encephalopathy is improving and the patient is more responsive and interactive on today's evaluation following simple commands . No focal deficits, tone is normal in all 4 extremities. She is alert and awake and oriented. - Labs CBC & Chem 7: 02/25/19 05:16 02/25/19 05:16 Labs: Abnormal Lab Results - Last 24 Hours (Table) 02/24/19 02/24/19 02/25/19 Range/Units 11:32 20:46 05:16 WBC 16.5 H (3.8-10.6) k/uL RBC 2.33 L (3.80-5.40) m/uL Hgb 9.5 L (11.4-16.0) gm/dL Hct 29.4 L (34.0-46.0) % MCV 126.0 H (80.0-100.0) fL MCH 40.7 H (25.0-35.0) pg RDW 17.5 H (11.5-15.5) % Plt Count 82 L (150-450) k/uL Neutrophils # 13.7 H (1.3-7.7) k/uL Macrocytosis Marked A Sodium (137-145) mmol/L BUN (7-17) mg/dL Glucose (74-99) mg/dL POC Glucose (mg/dL) 145 H 117 H (75-99) mg/dL Calcium (8.4-10.2) mg/dL Total Bilirubin (0.2-1.3) mg/dL AST (14-36) U/L ALT (4-34) U/L Alkaline Phosphatase (38-126) U/L Total Protein (6.3-8.2) g/dL Albumin (3.5-5.0) g/dL 02/25/19 Range/Units 05:16 WBC (3.8-10.6) k/uL RBC (3.80-5.40) m/uL Hgb (11.4-16.0) gm/dL Hct (34.0-46.0) % MCV (80.0-100.0) fL MCH (25.0-35.0) pg RDW (11.5-15.5) % Plt Count (150-450) k/uL Neutrophils # (1.3-7.7) k/uL Macrocytosis Sodium 135 L (137-145) mmol/L BUN 37 H (7-17) mg/dL Glucose 72 L (74-99) mg/dL POC Glucose (mg/dL) (75-99) mg/dL Calcium 7.5 L (8.4-10.2) mg/dL Total Bilirubin 11.5 H (0.2-1.3) mg/dL AST 248 H (14-36) U/L ALT 117 H (4-34) U/L Alkaline Phosphatase 245 H (38-126) U/L Total Protein 5.2 L (6.3-8.2) g/dL Albumin 2.1 L (3.5-5.0) g/dL Assessment and Plan Plan: #1. Altered mental status secondary to hepatic encephalopathy and hyperammonemi a, improved and the patient is back to normal mentation with improvement ammonia level. #2. Severe alcohol abuse with alcoholic liver disease and cirrhosis #3. Elevated ammonia levels causing mental status changes, on lactulose and Xifaxan, improved #4. Abdominal ascites #5. Coagulopathy of alcohol abuse #6. Anemia #7. Elevated transaminases, trending down #8. Alcoholic pancreatitis with elevated lipase #9. Acute kidney injury #10. Hypernatremia, improved and the patient is currently off free water supplements #11. Deep tissue injury and stage II pressure ulcers on upper middle back and on sacrum, present on admission related to prolonged downtime after a fall at home Plan Continue Xifaxan and lactulose Advance diet as tolerated Monitor LFTs Wound care as the patient has stage II pressure ulcer Sit up on a chair We'll continue to follow.
[2019-02-25 11:28] LABS: Glucose,Whole Blood 119 mg/dL (75-99)
--- NOTE | 2019-02-25 13:21 | PN ---
PROGRESS NOTE DATE OF SERVICE: February 25, 2019 The patient is a 58-year-old pleasant white female with history of alcoholic hepatitis superimposed on acute alcoholic liver disease and severe hepatic encephalopathy with altered mental status which is gradually improving. She is more awake and alert today. NG tube has been removed yesterday. She will be started on oral diet. She denies any symptoms. She is still somewhat slow in responding to questions. PHYSICAL EXAMINATION: She appears comfortable, no apparent distress. VITAL SIGNS: Vital signs are stable. Blood pressure is 83/63, pulse rate 77, temperature 98.6. HEENT: Unremarkable. Conjunctivae pink. Sclerae deeply icteric. Oral cavity no lesions. NECK: No JVD. No lymph node enlargement. CHEST: Clear to auscultation. HEART: Regular rate and rhythm. ABDOMEN: Slightly distended. Mild ascites noted. It was slightly tender in the periumbilical area. EXTREMITIES: No pedal edema. SKIN: No rashes. NEUROLOGICAL: She is awake, oriented to name but not to place and time. LABORATORY DATA: Labs from today, WBC 16.5, hemoglobin 9.5, platelets 82,000. Bilirubin is down to 11.5. AST 208, ALT 117, alkaline phosphatase 245. IMPRESSION: 1. Acute alcoholic hepatitis superimposed on alcoholic cirrhosis of the liver which is gradually improving. 2. Hepatic encephalopathy, normal ammonia level. Remains on Xifaxan and lactulose, doing well. 3. Mild ascites clinically. RECOMMENDATIONS: 1. Encourage oral intake. 2. Continue with Xifaxan as well as lactulose. 3. The patient may need physical therapy at this time. 4. Abstinence from alcohol. Will follow with you closely. Thank you for this consultation. MMODL / IJN: [id number] /
[2019-02-25 16:48] LABS: Glucose,Whole Blood 134 mg/dL (75-99)
[2019-02-25 20:14] LABS: Glucose,Whole Blood 104 mg/dL (75-99)
[2019-02-25] MEDS: HYDROcodone/APAP 5-325MG 1 EACH TAB PO PRN (21:24)
--- NOTE | 2019-02-25 22:08 | PN ---
PROGRESS NOTE Patient is progressively improving. NG tube was removed. Awake and alert. Ammonia level is normal. Regular diet. She is on Xifaxan and lactulose. Mentation is improving. Taken off bicarb drip. Bicarb is 28. Sodium level and labs are improving. Bilirubin is improving, down to 11.5. Albumin is 2.1. LFTs are abnormal, but improving. Stage II sacral decubitus ulceration. Bedside recliner. Cardiovascular S1,S2. Lungs clear. GI is distended. Integument is jaundice. Temp 97.9, blood pressure is 90s/50s, pulse 80, respiratory 16-18, O2 95%. ASSESSMENT: 1. Altered mental status due to hepatic encephalopathy. 2. Hyperammonemia. 3. Severe alcohol abuse with chronic alcoholic liver disease and cirrhosis. 4. Elevated ammonia levels cause mental status change, on lactose, Xifaxan. 5. Abdominal ascites. 6. Coagulopathy. 7. Alcohol abuse. 8. Anemia. 9. Elevated transaminases. 10.Alcoholic pancreatitis. 11.Acute kidney injury. 12.Hyponatremia. 13.Stage II pressure ulcers. Wound care on the ulcer. Continued PT, OT, ambulate. Continue Xifaxan and lactulose. Will need possible treatment for alcohol abuse for sure. Hopefully she continues to improve. Prognosis guarded. MMODL / IJN: [id number] /
[2019-02-26 06:46] LABS: Glucose,Whole Blood 95 mg/dL (75-99)
[2019-02-26] MEDS: INSULIN ASPART (NovoLOG) 100 UNIT/ML VIAL SQ SCH ×4 (06:51→20:37)
[2019-02-26] MEDS: LACTULOSE 20 GM/30 ML CUP PO SCH (08:22)
[2019-02-26] MEDS: THIAMINE 100 MG/ML 2 ML VIAL IVP SCH (08:22)
[2019-02-26] MEDS: PANTOPRAZOLE 40 MG/10 ML VIAL IV SCH (08:22)
[2019-02-26] MEDS: RIFAXIMIN 550 MG TABLET PO SCH ×2 (08:22→20:37)
--- NOTE | 2019-02-26 10:07 | PN ---
PROGRESS NOTE DATE OF SERVICE: 02/26/2019. REQUESTING PHYSICIAN: Dr. Hilario Hudson. The patient is a 58 -year-old pleasant white female with history of acute alcoholic hepatitis, alcoholic cirrhosis of the liver and severe hepatic encephalopathy, who is being transferred from the intensive care unit as she is gradually improving. She is more awake today, trying to eat breakfast, was able to eat 25% of her dinner last night. No new complaints. She still remains somewhat weak, unable to ambulate. PHYSICAL EXAMINATION: Appears comfortable. VITAL SIGNS: Stable. Blood pressure 85/56, pulse is 75, temperature 98.6. HEENT examination unremarkable. Conjunctivae pink. Sclerae anicteric. Oral cavity no lesions. NECK: No JVD or lymph node enlargement. CHEST: Clear to the auscultation. HEART: Regular rate and rhythm. ABDOMEN: Soft, slightly distended. Bowel sounds are positive. Mild ascites noted. EXTREMITIES: No pedal edema. SKIN no rashes. NEUROLOGIC: Alert and oriented x3. No focal deficits. LABS: From today WBC is 16.5, hemoglobin 9.5, platelets 82,000. Basic metabolic panel is within normal limits. Bilirubin is down to 11.5. AST 248, ALT 117, and alkaline phosphatase 248. IMPRESSION: 1. Acute alcoholic hepatitis superimposed on alcoholic cirrhosis of the liver with gradual decompensation. 2. Hepatic encephalopathy which is gradually improving. Ammonia has normalized to 17 today. Remains on Xifaxan and lactulose. 3. History of alcoholism. 4. Generalized debility. RECOMMENDATIONS: 1. Continue with Xifaxan 550 b.i.d. and oral lactulose 30 mL 3 times daily and hold if she has more than 3 bowel movements a day. 2. Recommend physical therapy. 3. Monitor the LFTs closely. 4. Encourage oral intake. 5. Protein supplement. 6. We will follow with you closely. Thank you for this consultation. MMODL / IJN: [id number] /
--- NOTE | 2019-02-26 10:49 | P.PN ---
Subjective Progress Note Date: 02/26/19 Altered mental status secondary to suspected hepatic encephalopathy and hyperam monemia On 02/20/2019 patient is seen in follow-up in intensive care unit, she is still quite obtunded, withdraws from noxious stimuli sluggishly, vital signs are stable, room air pulse ox is 97%, hemodynamically patient is stable, in sinus mechanism with a rate of 86 BPM, blood pressures 133/79, today's labs have been reviewed showing increase in ammonia level up to 111, patient remains on lac tulose at 30 g 3 times a day via the NG tube, she is also receiving nutrition with a viral high-protein at a rate of 50 with a goal of 50 with standard water flushes, on yesterday's labs patient was noted to be hyper nature ischemic, she remains on D5W infusion at a rate of 150 ML per hour, and today's labs show improvement in the serum sodium which is down to 146 on today's labs, renal profile has slightly improved, with BUN at 23, and creatinine is 1.12, patient remains acidotic, although he did slightly improve, and CO2 on today's labs14. Liver enzymes are improving, AST down to 151, ALT is 76, and alkaline phosphatase is stable at 176. Blood culture has shown no growth. No leukocytos is, with blood cell count is 10.5, patient remains on empiric antibiotics, she has been afebrile. Gilmore catheter is in place patient is producing 2240 ML per hour of dark colored urine, FMS in place with liquid output. On 02/23/2019 patient seen in follow-up in the intensive care unit. Patient s awake and alert, she remains confused, but she was able to tell us her name, she is disoriented to place or time, but she is following simple commands, she is moving all 4 extremities. Vital signs are stable, room air pulse ox is 92%, hemodynamically stable, slightly tachycardic in sinus mechanism with a rate of 101 BPM, afebrile. Is on the positive for some fine basilar crackles. These labs have been reviewed, showing cell count of 16, hemoglobin is 10.2, sodium is 148, potassium is 3.2, chloride is 116, B1 is 30, creatinine 0.84 and ammonia level is improving down to 49, patient remains on a combination of lactulose and Xifaxan, patient has had extensive diarrhea, 4800 mL in liquid stool in the last 24 hours, has produced 945 mL in urine output. She remains nothing by mouth, although patient is now more awake, and she is thirsty and she is requesting some water. Remains on tube feedings at this time, with 200 mL free water flushes every 4 hours. On 02/24/2019 patient seen in follow-up intensive care unit, she is awake and alert, oriented to person only, disoriented to time and place, simple commands, moving all 4 extremities although she does have severe generalized weakness, appetite still remains poor, NG tube remains in place, she did swallow evaluation at the bedside with speech therapy and modified diet was recommended with pured diet and thin liquids. No signs have been stable, room air pulse ox is 95-98%, she is afebrile, intensive, no acute distress, no signs of respiratory difficulty, lung sounds are positive for fine bibasilar crackles, no rhonchi or wheezing. His labs have been reviewed, showing white blood cell count of 13.2, hemoglobin of 10.3, sodium is 140, potassium 3.0, chloride is 100, CO2 36, B1 is 35 creatinine 0.79, ammonia level is less than 9 and today's labs, bilirubin is 12.5, AST is 259, ALT is 106, and alkaline phosphatase is 275 . NG tube remains in place and with tube feedings infusing On 02/25/2019 on seeing the patient for a follow-up. NG tube is removed. She is awake and alert. Further drop in ammonia level. The patient is taking regular diet for now. She remains on a combination of Xifaxan and lactulose. No altered mentation. His communicating with us adequately. In terms of her fluid support, she was taken off the bicarb drip. Serum bicarb is down to 28. She was taken off the free water upper limits. His sodium level is on 03/18/1935. Bilirubin is improving. Bilirubin level is down to 11.5. LFTs are still abnormal. Albumin level is at 2.1. She has stage II sacral decub ulceration and OptiForm is being applied to the area. She is weak. We'll try to get it up on a bedside recliner today. On 02/26/2019 the patient is to the intensive care unit. She'll be transferred out. She is on room air oxygen. Was more sleepy compared to yesterday. She is eating 25% of her diet. She is on lactulose patient on Xifaxan. Labs are still pending from today. She was able to sit up on the recliner yesterday. The fecal management system was removed. She still has OptiForm to her lower extre mity stage II sacral decub ulceration. Hemodynamically stable. Adequate urine output. Still edematous and she would benefit from gentle diuresis. Objective - Vital Signs Vital signs: Vital Signs Temp 97.8 F 02/26/19 08:00 Pulse 80 02/26/19 08:00 Resp 20 02/26/19 08:00 BP 89/64 02/26/19 08:00 Pulse Ox 95 02/26/19 00:00 Intake & Output 02/25/19 02/26/19 02/26/19 18:59 06:59 18:59 Intake Total 1300 180 Output Total 715 400 Balance 585 -220 Weight 73.4 kg Intake: Oral 1300 180 Output: Urine 515 400 Stool 200 Other: Voiding Method Indwelling Catheter Indwelling Catheter Indwelling Catheter - Exam GENERAL EXAM the patient is a bit more sleepy compared to yesterday. She is arousable should she is communicating. She looks jaundiced. Head exam was generally normal. There was no scleral icterus or corneal arcus. Mucous membranes were moist.. NOSE: Clear with pink turbinates. THROAT: No erythema or exudates. NECK: No masses, no JVD, no thyroid enlargement, no adenopathy. CHEST: No chest wall deformity. Symmetrical expansion. LUNGS: Equal air entry with no crackles, wheeze, rhonchi or dullness. CVS: Regular rate and rhythm, normal S1 and S2, no gallops, no murmurs, no rubs ABDOMEN: Firm, nontender. No hepatosplenomegaly, sluggish bowel sounds, no guarding or rigidity. EXTREMITIES: No cluthe patient has edema in all 4 extremitiescyanosis, 2+ pulses and upper and lower extremities. MUSCULOSKELETAL: Muscle strength and tone normal. SPINE: No scoliosis or deformity SKIN: The patient has stage II ulcer on her buttock an OptiForm is applied to the area. CENTRAL NERVOUS SYSTEM: Hepatic encephalopathy is improving and the patient is more responsive and interactive on today's evaluation following simple commands . No focal deficits, tone is normal in all 4 extremities. She is alert and awake and oriented. - Labs CBC & Chem 7: 02/25/19 05:16 02/25/19 05:16 Labs: Abnormal Lab Results - Last 24 Hours (Table) 02/25/19 02/25/19 02/25/19 Range/Units 11:26 16:47 20:12 POC Glucose (mg/dL) 119 H 134 H 104 H (75-99) mg/dL Assessment and Plan Plan: #1. Reticulocyte encephalopathy, improving and the patient has been treated with a combination of Xifaxan and lactulose with improving ammonia levels. She is awake and tolerating diet for now. #2. Severe alcohol abuse with alcoholic liver disease and cirrhosis #3. Elevated ammonia levels causing mental status changes, on lactulose and Xifaxan, improved #4. Abdominal ascites #5. Coagulopathy of alcohol abuse #6. Anemia #7. Elevated transaminases, trending down #8. Alcoholic pancreatitis with elevated lipase #9. Acute kidney injury #10. Hypernatremia, improved and the patient is currently off free water supplements #11. Deep tissue injury and stage II pressure ulcers on upper middle back and on sacrum, present on admission related to prolonged downtime after a fall at home Plan Continue Xifaxan and lactulose Advance diet as tolerated Waiting labs from today. Wound care Advance diet and offer the patient Ensure Start the patient on daily Lasix 40 mg and 25 mg of Aldactone. We'll continue to follow. Her chest with a medical floor.
[2019-02-26 11:08] LABS: Anisocytosis Slight; HCT 31.3 % (34.0-46.0); HGB 9.9 gm/dL (11.4-16.0); Hypochromasia Slight; MCH 39.2 pg (25.0-35.0); MCHC 31.6 g/dL (31.0-37.0); MCV 124.2 fL (80.0-100.0); Macrocytosis Marked; Mean Platelet Volume 11.2; RBC 2.52 m/uL (3.80-5.40); RDW 17.4 % (11.5-15.5); WBC 17.8 k/uL (3.8-10.6)
[2019-02-26] MEDS: FUROSEMIDE 40 MG TAB PO SCH (11:08)
[2019-02-26] MEDS: SPIRONOLACTONE 25 MG TAB PO SCH (11:08)
[2019-02-26 11:13] LABS: Platelet Count 85 k/uL (150-450)
[2019-02-26 11:24] LABS: Albumin 2.2 g/dL (3.5-5.0); Calcium 7.7 mg/dL (8.4-10.2); Potassium 4.1 mmol/L (3.5-5.1); Total Bilirubin 10.1 mg/dL (0.2-1.3); Total Protein 5.4 g/dL (6.3-8.2)
[2019-02-26 11:32] LABS: Glucose,Whole Blood 89 mg/dL (75-99)
[2019-02-26] MEDS: HYDROcodone/APAP 5-325MG 1 EACH TAB PO PRN (14:23)
--- NOTE | 2019-02-26 15:28 | PN ---
PROGRESS NOTE 58-year-old white female, alcoholic hepatitis, cirrhosis of the liver, severe hepatic encephalopathy. She is going to leave the ICU. She is more of a bit more obtunded today. A little bit more swollen in her belly and her legs. She ate 25% of her dinner. She is on Xifaxan and lactulose. Last ammonia was normal. Blood pressure is 85-90 over 50s to 60s, pulse 75, temperature 98.6. HEENT: Normocephalic, atraumatic. NECK: Supple. Lungs are clear. Heart S1, S2. Abdomen is distended. Positive fluid wave. Extremities show moderate amount of edema. No rashes. Alert and oriented. White count 16.5, hemoglobin 9.5. Bilirubin 1.5, AST 240, ALT 117, alkaline phosphatase 248. ASSESSMENT: 1. Acute alcoholic hepatitis. 2. Alcoholic cirrhosis of the liver. 3. Decompensated liver. 4. Hepatic encephalopathy. 5. today on Xifaxan, lactulose. 6. Alcoholism. 7. Generalized debility. 8. Leukocytosis. Get Infectious Disease to see. Continue with Xifaxan and lactulose. PT/OT. Monitor LFTs. Increase oral intake. Alcohol rehab will be needed immediately on discharge. MMODL / IJN: [id number] /
[2019-02-26 16:52] LABS: Glucose,Whole Blood 124 mg/dL (75-99)
[2019-02-26 20:25] LABS: Glucose,Whole Blood 128 mg/dL (75-99)
[2019-02-27 05:40] LABS: Anisocytosis Slight; Basophils # (A) 0.1 k/uL (0-0.2); Basophils % (A) 1 %; Eosinophils # (A) 0.1 k/uL (0-0.7); Eosinophils % (A) 1 %; HCT 30.7 % (34.0-46.0); HGB 9.6 gm/dL (11.4-16.0); Hypochromasia Slight; Lymphocytes # (A) 0.8 k/uL (1.0-4.8); Lymphocytes % (A) 6 %; MCH 38.8 pg (25.0-35.0); MCHC 31.2 g/dL (31.0-37.0); Macrocytosis Marked; Mean Platelet Volume 11.3; Monocytes # (A) 0.6 k/uL (0-1.0); Monocytes % (A) 4 %; Neutrophils # (A) 12.5 k/uL (1.3-7.7); Neutrophils % (A) 88 %; Platelet Count 112 k/uL (150-450); RBC 2.47 m/uL (3.80-5.40); RDW 17.3 % (11.5-15.5); WBC 14.3 k/uL (3.8-10.6)
[2019-02-27 05:46] LABS: MCV 124.5 fL (80.0-100.0)
[2019-02-27 06:01] LABS: Albumin 2.1 g/dL (3.5-5.0); Calcium 7.5 mg/dL (8.4-10.2); Potassium 4.3 mmol/L (3.5-5.1); Total Bilirubin 8.4 mg/dL (0.2-1.3); Total Protein 5.6 g/dL (6.3-8.2)
[2019-02-27] MEDS: INSULIN ASPART (NovoLOG) 100 UNIT/ML VIAL SQ SCH (07:11)
[2019-02-27] MEDS: SPIRONOLACTONE 25 MG TAB PO SCH (09:57)
[2019-02-27] MEDS: LACTULOSE 20 GM/30 ML CUP PO SCH (09:57)
[2019-02-27] MEDS: RIFAXIMIN 550 MG TABLET PO SCH ×2 (09:57→20:45)
[2019-02-27] MEDS: THIAMINE 100 MG/ML 2 ML VIAL IVP SCH (09:57)
[2019-02-27] MEDS: PANTOPRAZOLE 40 MG/10 ML VIAL IV SCH (09:57)
[2019-02-27] MEDS: FUROSEMIDE 40 MG TAB PO SCH (09:57)
--- NOTE | 2019-02-27 13:02 | P.PN ---
Subjective Progress Note Date: 02/27/19 Principal diagnosis: Acute hepatic encephalopathy and hyperammonemia On 02/20/2019 patient is seen in follow-up in intensive care unit, she is still quite obtunded, withdraws from noxious stimuli sluggishly, vital signs are stable, room air pulse ox is 97%, hemodynamically patient is stable, in sinus mechanism with a rate of 86 BPM, blood pressures 133/79, today's labs have been reviewed showing increase in ammonia level up to 111, patient remains on lactulose at 30 g 3 times a day via the NG tube, she is also receiving nutrition with a viral high-protein at a rate of 50 with a goal of 50 with standard water flushes, on yesterday's labs patient was noted to be hyper nature ischemic, she remains on D5W infusion at a rate of 150 ML per hour, and today's labs show improvement in the serum sodium which is down to 146 on today's labs, renal profile has slightly improved, with BUN at 23, and creatinine is 1.12, patient remains acidotic, although he did slightly improve, and CO2 on today's labs14. Liver enzymes are improving, AST down to 151, ALT is 76, and alkaline phosphatase is stable at 176. Blood culture has shown no growth. No leukocytosis, with blood cell count is 10.5, patient remains on empiric antibiotics, she has been afebrile. Gilmore catheter is in place patient is producing 2240 ML per hour of dark colored urine, FMS in place with liquid output. On 02/23/2019 patient seen in follow-up in the intensive care unit. Patient s awake and alert, she remains confused, but she was able to tell us her name, she is disoriented to place or time, but she is following simple commands, she is moving all 4 extremities. Vital signs are stable, room air pulse ox is 92%, hemodynamically stable, slightly tachycardic in sinus mechanism with a rate of 101 BPM, afebrile. Is on the positive for some fine basilar crackles. These labs have been reviewed, showing cell count of 16, hemoglobin is 10.2, sodium is 148, potassium is 3.2, chloride is 116, B1 is 30, creatinine 0.84 and ammonia level is improving down to 49, patient remains on a combination of lactulose and Xifaxan, patient has had extensive diarrhea, 4800 mL in liquid stool in the last 24 hours, has produced 945 mL in urine output. She remains nothing by mouth, although patient is now more awake, and she is thirsty and she is requesting some water. Remains on tube feedings at this time, with 200 mL free water flushes every 4 hours. On 02/24/2019 patient seen in follow-up intensive care unit, she is awake and alert, oriented to person only, disoriented to time and place, simple commands, moving all 4 extremities although she does have severe generalized weakness, appetite still remains poor, NG tube remains in place, she did swallow evaluation at the bedside with speech therapy and modified diet was recommended with pured diet and thin liquids. No signs have been stable, room air pulse ox is 95-98%, she is afebrile, intensive, no acute distress, no signs of respiratory difficulty, lung sounds are positive for fine bibasilar crackles, no rhonchi or wheezing. His labs have been reviewed, showing white blood cell count of 13.2, hemoglobin of 10.3, sodium is 140, potassium 3.0, chloride is 100, CO2 36, B1 is 35 creatinine 0.79, ammonia level is less than 9 and today's labs, bilirubin is 12.5, AST is 259, ALT is 106, and alkaline phosphatase is 275. NG tube remains in place and with tube feedings infusing On 02/25/2019 on seeing the patient for a follow-up. NG tube is removed. She is awake and alert. Further drop in ammonia level. The patient is taking regu lar diet for now. She remains on a combination of Xifaxan and lactulose. No altered mentation. His communicating with us adequately. In terms of her fluid support, she was taken off the bicarb drip. Serum bicarb is down to 28. She was taken off the free water upper limits. His sodium level is on 03/18/1935. Bilirubin is improving. Bilirubin level is down to 11.5. LFTs are still abnormal. Albumin level is at 2.1. She has stage II sacral decub ulceration and OptiForm is being applied to the area. She is weak. We'll try to get it up on a bedside recliner today. On 02/26/2019 the patient is to the intensive care unit. She'll be transferred out. She is on room air oxygen. Was more sleepy compared to yesterday. She is eating 25% of her diet. She is on lactulose patient on Xifaxan. Labs are still pending from today. She was able to sit up on the recliner yesterday. The fecal management system was removed. She still has OptiForm to her lower extremity stage II sacral decub ulceration. Hemodynamically stable. Adequate urine output. Still edematous and she would benefit from gentle diuresis. Reevaluated today on 02/27/2019 patient remains in the ICU as an overflow. Patient is on room air, she is alert oriented 3, looks jaundiced, feeling better breathing easier, and her mental status is basically almost back to her baseline. WBC count is down to 14.3 hemoglobin is 9.6 electrolytes showed a low sodium of 1.9 patient remains on diuretics for her anasarca presentation. And significant fluid retention. Liver enzymes are improving including improvement in her bilirubin and her transaminases. Objective - Vital Signs Vital signs: Vital Signs Temp 97.9 F 02/27/19 08:00 Pulse 83 02/27/19 08:00 Resp 20 02/27/19 08:00 BP 98/65 02/27/19 08:00 Pulse Ox 96 02/27/19 08:00 Intake & Output 02/26/19 02/27/19 02/27/19 18:59 06:59 18:59 Intake Total 750 480 Output Total 500 1250 375 Balance 250 -1250 105 Weight 74.2 kg 74.2 kg Intake: Oral 750 480 Output: Urine 500 1050 375 Stool 200 Other: Voiding Method Indwelling Catheter Indwelling Catheter Indwelling Catheter - Exam GENERAL: Jaundiced, encephalopathic, HEENT: PERRLA, EOMI, positive icterus. . NECK: No JVD. No thyroid enlargement. No LNs CARDIOVASCULAR: S1, S2 regular. Mild tachycardia, No murmur RESPIRATION: Breath sounds clear, diminished in the bases. No rhonchi, no wheezing, fine basilar crackles. ABDOMEN: Firm, nontender ,No guarding. no masses palpable. No hepatosplenomegaly.Hypoactive Bowel sounds heard. LEGS: No edema. no swelling, NERVOUS SYSTEM:mental status slowly improving , alert and oriented to person, disoriented to place and time, following simple commands. No focal deficits. Skin: no rash, upper middle back and sacrum stage II pressure ulcers, present on admission Psychiatric: Normal mood affect and normal mental status examination. - Labs CBC & Chem 7: 02/27/19 05:06 02/27/19 05:06 Labs: Abnormal Lab Results - Last 24 Hours (Table) 02/26/19 02/26/19 02/27/19 Range/Units 16:50 20:24 05:06 WBC 14.3 H (3.8-10.6) k/uL RBC 2.47 L (3.80-5.40) m/uL Hgb 9.6 L (11.4-16.0) gm/dL Hct 30.7 L (34.0-46.0) % MCV 124.5 H (80.0-100.0) fL MCH 38.8 H (25.0-35.0) pg RDW 17.3 H (11.5-15.5) % Plt Count 112 L (150-450) k/uL Neutrophils # 12.5 H (1.3-7.7) k/uL Lymphocytes # 0.8 L (1.0-4.8) k/uL Macrocytosis Marked A Sodium (137-145) mmol/L BUN (7-17) mg/dL POC Glucose (mg/dL) 124 H 128 H (75-99) mg/dL Calcium (8.4-10.2) mg/dL Total Bilirubin (0.2-1.3) mg/dL AST (14-36) U/L ALT (4-34) U/L Alkaline Phosphatase (38-126) U/L Total Protein (6.3-8.2) g/dL Albumin (3.5-5.0) g/dL 02/27/19 Range/Units 05:06 WBC (3.8-10.6) k/uL RBC (3.80-5.40) m/uL Hgb (11.4-16.0) gm/dL Hct (34.0-46.0) % MCV (80.0-100.0) fL MCH (25.0-35.0) pg RDW (11.5-15.5) % Plt Count (150-450) k/uL Neutrophils # (1.3-7.7) k/uL Lymphocytes # (1.0-4.8) k/uL Macrocytosis Sodium 129 L (137-145) mmol/L BUN 37 H (7-17) mg/dL POC Glucose (mg/dL) (75-99) mg/dL Calcium 7.5 L (8.4-10.2) mg/dL Total Bilirubin 8.4 H (0.2-1.3) mg/dL AST 166 H (14-36) U/L ALT 114 H (4-34) U/L Alkaline Phosphatase 252 H (38-126) U/L Total Protein 5.6 L (6.3-8.2) g/dL Albumin 2.1 L (3.5-5.0) g/dL Assessment and Plan Assessment: Altered mental status secondary to septic hepatic encephalopathy and Hyperammonia, significantly improved Severe Alcohol abuse with alcoholic liver disease, cirrhosis Abdominal ascites, not significant per ultrasound Coagulopathy secondary to alcohol abuse Anemia of chronic disease Alcoholic pancreatitis Acute renal failure, improving Hypernatremia, improving Hypokalemia Bibasilar atelectasis Stage II pressure ulcers Recommendation: Continue present supportive care measures, Transfer patient out of the ICU, We'll sign off and see the patient on when necessary basis. Patient is being followed by many other consultants and we'll sign off for now. Time with Patient: Less than 30
[2019-02-27] MEDS: HYDROcodone/APAP 5-325MG 1 EACH TAB PO PRN ×2 (15:14→20:45)
--- NOTE | 2019-02-27 16:04 | US ---
EXAMINATION TYPE: US abdomen limited DATE OF EXAM: 02/27/2019 COMPARISON: NONE CLINICAL HISTORY: ascites. Ascites Small fluid pockets visualized. Limited abdomen scanning performed. IMPRESSION: Small amount of ascites.
--- NOTE | 2019-02-27 17:05 | P.PN ---
Subjective Progress Note Date: 02/27/19 This is a 58-year-old female admitted with altered mental status secondary to hepatic encephalopathy, alcohol abuse, cirrhosis, hyperammonia and multiple other medical issues. CO2 14,on bicarb drip. Maintained on empiric antibiotics. Afebrile, normal WBC, blood cultures no growth in 72 hours. INR 1.6. T bili remains at 14.6, transaminases trending down. Ammonia 111, on lactulose. Abdominal ultrasound reporting trace amount of ascites, inadequate for paracentesis. Vital signs stable. Patient was on D5 W with improvement in sodium down to 146. Renal function improving down to 1.12. 02/21/2019 continues on Xifaxan, lactulose, ammonia 107. T bili 14.7, LFTs remain elevated. Potassium 3.1 being replaced. Afebrile, WBC 15.3, blood cultures negative. Bicarb 17, on bicarb drip. Sodium level improving. Evaluated by GI with recommendations noted. 02/22/2019 ammonia level down to 84, patient alert, following basic commands. Bicarb 25, on bicarb drip. Tolerating tube feeds at goal with minimal to no residuals.Sodium 147. Vital signs stable, maintaining O2 sats in the 90s on room air. T-max 99.2 WBC up to 18.8. Potassium 2.8. 02/23/2019 ammonia continues trending down, currently 49. More alert today, alert and oriented to person, following simple commands. Maintained on tube feeds and aspiration precautions. 02/24/2019 remains alert to person only, significantly weak. Ammonia level significantly decreased to less than 9. Speech therapy evaluated patient at bedside recommended pured with thin liquids. NG tube remains in place. Blood sugars controlled. Afebrile, WBC 13.2. Blood cultures no growth. Sodium 140, potassium 3 ,bicarb 36, creatinine 0.79, T bili 12.5, AST 259, ALT 106, ALK PHOS 275, albumin 2.2. 02/27/2019 significant clinical improvement ,MedSurg overflow. T bili and LFTs improving. Maintained on diuretics, Xifaxan, lactulose. Ammonia 16. Extremely weak. Consuming 25-50% of diet as per staff. Sodium 129. Afebrile, WBC trending down to 14.3. Objective - Vital Signs Vital signs: Vital Signs Temp 97.9 F 02/27/19 08:00 Pulse 83 02/27/19 08:00 Resp 20 02/27/19 08:00 BP 98/65 02/27/19 08:00 Pulse Ox 96 02/27/19 08:00 Intake & Output 02/26/19 02/27/19 02/27/19 18:59 06:59 18:59 Intake Total 750 480 Output Total 500 1250 375 Balance 250 -1250 105 Weight 74.2 kg 74.2 kg Intake: Oral 750 480 Output: Urine 500 1050 375 Stool 200 Other: Voiding Method Indwelling Catheter Indwelling Catheter Indwelling Catheter - Exam PHYSICAL EXAM: VITAL SIGNS: As above GENERAL: Jaundiced, encephalopathic, alert and oriented to person, no acute distress HEENT: Positive icterus, pupils equal, NECK: No JVD. No thyroid enlargement. No LNs CARDIOVASCULAR: S1, S2 regular. Mild tachycardia, No murmur RESPIRATION: Breath sounds clear, diminished in the bases. No rhonchi, no wheezing, fine basilar crackles. ABDOMEN: Firm, distended, nontender ,No guarding. no masses palpable. No hepatosplenomegaly.Hypoactive Bowel sounds heard. LEGS: Positive pitting edema NERVOUS SYSTEM:mental status improving ,following simple commands. Significantly weak. No focal deficits. Skin: no rash, upper middle back and sacrum stage II pressure ulcers, present on admission - Labs CBC & Chem 7: 02/27/19 05:06 02/27/19 05:06 Labs: Abnormal Lab Results - Last 24 Hours (Table) 02/26/19 02/26/19 02/26/19 Range/Units 10:54 10:54 16:50 WBC 17.8 H (3.8-10.6) k/uL RBC 2.52 L (3.80-5.40) m/uL Hgb 9.9 L (11.4-16.0) gm/dL Hct 31.3 L (34.0-46.0) % MCV 124.2 H (80.0-100.0) fL MCH 39.2 H (25.0-35.0) pg RDW 17.4 H (11.5-15.5) % Plt Count 85 L (150-450) k/uL Neutrophils # (1.3-7.7) k/uL Lymphocytes # (1.0-4.8) k/uL Macrocytosis Marked A Sodium 132 L (137-145) mmol/L BUN 38 H (7-17) mg/dL POC Glucose (mg/dL) 124 H (75-99) mg/dL Calcium 7.7 L (8.4-10.2) mg/dL Total Bilirubin 10.1 H (0.2-1.3) mg/dL AST 224 H (14-36) U/L ALT 123 H (4-34) U/L Alkaline Phosphatase 260 H (38-126) U/L Total Protein 5.4 L (6.3-8.2) g/dL Albumin 2.2 L (3.5-5.0) g/dL 02/26/19 02/27/19 02/27/19 Range/Units 20:24 05:06 05:06 WBC 14.3 H (3.8-10.6) k/uL RBC 2.47 L (3.80-5.40) m/uL Hgb 9.6 L (11.4-16.0) gm/dL Hct 30.7 L (34.0-46.0) % MCV 124.5 H (80.0-100.0) fL MCH 38.8 H (25.0-35.0) pg RDW 17.3 H (11.5-15.5) % Plt Count 112 L (150-450) k/uL Neutrophils # 12.5 H (1.3-7.7) k/uL Lymphocytes # 0.8 L (1.0-4.8) k/uL Macrocytosis Marked A Sodium 129 L (137-145) mmol/L BUN 37 H (7-17) mg/dL POC Glucose (mg/dL) 128 H (75-99) mg/dL Calcium 7.5 L (8.4-10.2) mg/dL Total Bilirubin 8.4 H (0.2-1.3) mg/dL AST 166 H (14-36) U/L ALT 114 H (4-34) U/L Alkaline Phosphatase 252 H (38-126) U/L Total Protein 5.6 L (6.3-8.2) g/dL Albumin 2.1 L (3.5-5.0) g/dL Assessment and Plan Assessment: Altered mental status secondary to septic hepatic encephalopathy and Hyperammonia, present on admission Severe Alcohol abuse with alcoholic liver disease, cirrhosis Abdominal ascites, not significant per ultrasound Coagulopathy secondary to alcohol abuse Anemia of chronic disease Alcoholic pancreatitis Acute renal failure, improving Hypernatremia, improving Hypokalemia Bibasilar atelectasis Stage II pressure ulcers now back and sacrum ,present on admission Plan: Continue current medication regime ,monitoring and symptomatic treatment. MedSurg overflow. Abdominal ultrasound pending. PT/OT. Social work assisting with discharge to subacute rehab. And eventually to alcohol rehab. Close mo nitoring of ammonia, LFTs. The impression and plan of care has been dictated as directed. : I performed a history and examination of this patient, discussed the same with the dictator. I agree with the dictator's note ,documented as a scribe. Any additional findings or plans will be noted.
--- NOTE | 2019-02-27 21:44 | P.PN ---
Subjective Progress Note Date: 02/27/19 Principal diagnosis: Acute alcoholic hepatitis, elevated liver enzymes, hepatic encephalopathy Patient is seen sitting bedside reporting that she is tolerating her diet. No nausea or vomiting. No abdominal pain but abdomen is somewhat distended. Objective - Vital Signs Vital signs: Vital Signs Temp 97.2 F L 02/27/19 15:00 Pulse 82 02/27/19 15:00 Resp 14 02/27/19 15:00 BP 96/66 02/27/19 15:00 Pulse Ox 95 02/27/19 15:00 Intake & Output 02/27/19 02/27/19 02/28/19 06:59 18:59 06:59 Intake Total 1040 360 Output Total 1250 625 285 Balance -1250 415 75 Weight 74.2 kg 74.2 kg Intake: Oral 1040 360 Output: Urine 1050 625 285 Stool 200 Other: Voiding Method Indwelling Catheter Indwelling Catheter - Exam On physical examination, patient appears comfortable in no apparent distress. HEAD: Normocephalic, atraumatic. EYES: Scleral icterus. No conjunctival injection. MOUTH: No lesions, tongue midline. NECK: Trachea midline, no gross abnormalities. CHEST: Clear to auscultation with no wheezing or rhonchi appreciated. ABDOMEN: Soft, obes mildly distended e. Bowel sounds are positive. No organome rayo. No guarding or rigidity. EXTREMITIES: No pedal edema. SKIN: No rashes, no jaundice. NEUROLOGIC: Alert and oriented x3. No focal deficits. - Labs CBC & Chem 7: 02/27/19 05:06 02/27/19 05:06 Labs: Abnormal Lab Results - Last 24 Hours (Table) 02/27/19 02/27/19 Range/Units 05:06 05:06 WBC 14.3 H (3.8-10.6) k/uL RBC 2.47 L (3.80-5.40) m/uL Hgb 9.6 L (11.4-16.0) gm/dL Hct 30.7 L (34.0-46.0) % MCV 124.5 H (80.0-100.0) fL MCH 38.8 H (25.0-35.0) pg RDW 17.3 H (11.5-15.5) % Plt Count 112 L (150-450) k/uL Neutrophils # 12.5 H (1.3-7.7) k/uL Lymphocytes # 0.8 L (1.0-4.8) k/uL Macrocytosis Marked A Sodium 129 L (137-145) mmol/L BUN 37 H (7-17) mg/dL Calcium 7.5 L (8.4-10.2) mg/dL Total Bilirubin 8.4 H (0.2-1.3) mg/dL AST 166 H (14-36) U/L ALT 114 H (4-34) U/L Alkaline Phosphatase 252 H (38-126) U/L Total Protein 5.6 L (6.3-8.2) g/dL Albumin 2.1 L (3.5-5.0) g/dL Assessment and Plan (1) Alcoholic hepatitis with ascites Narrative/Plan: 58-year-old female with a medical history significant for alcohol abuse who presented to the hospital after being found passed out in her residence. Patient has elevated liver enzymes consistent with alcoholic hepatitis. Current Visit: Yes Status: Acute Code(s): K70.11 - ALCOHOLIC HEPATITIS WITH ASCITES SNOMED Code(s): 9789809870765922 (2) Hepatic encephalopathy Current Visit: Yes Status: Acute Code(s): K72.90 - HEPATIC FAILURE, UNSPECIFIED WITHOUT COMA SNOMED Code(s): 63363366 (3) Hyperammonemia Current Visit: Yes Status: Acute Code(s): E72.20 - DISORDER OF UREA CYCLE METABOLISM, UNSPECIFIED SNOMED Code(s): 8119506 (4) Transaminitis Current Visit: Yes Status: Acute Code(s): R74.0 - NONSPEC ELEV OF LEVELS OF TRANSAMNS & LACTIC ACID DEHYDRGNSE SNOMED Code(s): 664981849 Plan: Supportive care Continue vitamin and mineral supplementation Continue to monitor CBC, CMP Continue lactulose, titrated to 3 bowel movements daily Continue rifaximin therapy Sodium restricted diet Nutrition consult ordered for discussion on sodium restricted diet Ultrasound abdomen ordered for evaluation of paracentesis, however insufficient fluid for paracentesis Continue Lasix and Aldactone for diuresis Alcohol abstinence Okay for discharge when otherwise medically stable Thank you for allowing us to participate in the care of the patient calmed GI service will stand by, please call us back with any questions or concerns
--- NOTE | 2019-02-27 23:42 | P.CONS ---
History of Present Illness - Reason for Consult Consult date: 02/27/19 leukocytosis Requesting physician: Hilario Hudson - Chief Complaint unresponsive on admission - History of Present Illness Patient is a 58-year female with a past medical history significant for alcoholic hepatitis and cirrhosis presented to the ER at [facility] on February 16, 2019 for evaluation of mental status changes patient was found to be lying on the ground of her home by the neighbor police was called in the middle breaking the door and brought the patient to [facility] ER patient since admission the hospital has been afebrile and no fever has been recorded throughout her hospital stay patient noticed to have elevated white troponin patient on 18. patient likely subsequent normalized however since February 21 no echo has been done (with a white count of 17.8 yesterday that prompted this infectious disease consultation patient has received a course of Zosyn during this admission and she did have a blood culture which has been negative patient chest x-ray is mostly atelectasis and abdominal x-ray did not show any significant abnormality the patient did have a videofluoroscopic swallow that was negative for any aspiration patient currently denies having any fever or any chills. Denies having any headache or URI symptoms no chest pain no shortness with occasional cough. She did have abdominal distention and some discomfort but no worsening no nausea no vomiting and no diarrhea. Review of Systems Positive point has been mentioned in HPI rest of the systems are negative Past Medical History Past Medical History: No Reported History History of Any Multi-Drug Resistant Organisms: Unobtainable Past Surgical History: No Surgical Hx Reported Past Anesthesia/Blood Transfusion Reactions: No Reported Reaction Past Psychological History: Unable to Obtain Smoking Status: Unknown if ever smoked Past Alcohol Use History: Unable to Obtain Past Drug Use History: Unable to Obtain - Past Family History Mother Family Medical History: Cancer Father History Unknown: Yes Medications and Allergies Home Medications Medication Instructions Recorded Confirmed Type No Known Home Medications 02/17/19 02/17/19 History Allergies Allergy/AdvReac Type Severity Reaction Status Date / Time No Known Allergies Allergy Verified 02/17/19 13:04 Physical Exam Vitals: Vital Signs Temp Pulse Resp BP Pulse Ox 02/27/19 15:00 97.2 F L 82 14 96/66 95 02/27/19 08:00 97.9 F 83 20 98/65 96 02/27/19 00:00 98.0 F 81 19 96/65 94 L 02/26/19 22:00 79 13 96/65 Intake and Output 02/27/19 02/27/19 02/27/19 06:59 14:59 22:59 Intake Total 1040 360 Output Total 900 625 285 Balance -900 415 75 Intake: Oral 1040 360 Output: Urine 700 625 285 Stool 200 Other: Voiding Method Indwelling Catheter Indwelling Catheter Indwelling Catheter Weight 74.2 kg 74.2 kg GENERAL DESCRIPTION: Middle-aged female lying in bed, no distress. No tachypnea or accessory muscle of respiration use. HEENT: scleral icteru +. Oral mucous membrane is dry. NECK: Trachea central, no thyromegaly. LUNGS: Unlabored breathing. Clear to auscultation anteriorly. No wheeze or crackle. HEART: S1, S2, regular rate and rhythm. ABDOMEN: Soft, distended but no tenderness , guarding or rigidity EXTREMITIES: No edema of feet. SKIN: No rash, no masses palpable. NEUROLOGICAL: The patient is awake, alert, oriented x3, mood and affect normal. Results CBC & Chem 7: 02/27/19 05:06 02/27/19 05:06 Labs: Abnormal Lab Results - Last 24 Hours (Table) 02/27/19 02/27/19 Range/Units 05:06 05:06 WBC 14.3 H (3.8-10.6) k/uL RBC 2.47 L (3.80-5.40) m/uL Hgb 9.6 L (11.4-16.0) gm/dL Hct 30.7 L (34.0-46.0) % MCV 124.5 H (80.0-100.0) fL MCH 38.8 H (25.0-35.0) pg RDW 17.3 H (11.5-15.5) % Plt Count 112 L (150-450) k/uL Neutrophils # 12.5 H (1.3-7.7) k/uL Lymphocytes # 0.8 L (1.0-4.8) k/uL Macrocytosis Marked A Sodium 129 L (137-145) mmol/L BUN 37 H (7-17) mg/dL Calcium 7.5 L (8.4-10.2) mg/dL Total Bilirubin 8.4 H (0.2-1.3) mg/dL AST 166 H (14-36) U/L ALT 114 H (4-34) U/L Alkaline Phosphatase 252 H (38-126) U/L Total Protein 5.6 L (6.3-8.2) g/dL Albumin 2.1 L (3.5-5.0) g/dL Assessment and Plan Assessment: patient with leukocytosis which seems to be more likely reactive in this patient who did have a alcoholic hepatitis however had the patient did have some abd ominal discomfort underlying alcohol-related pancreatitis or any complication associated with not entirely excluded patient currently with no other clinical focus of infection once has been clear to auscultation and UA has been negative (1) Leukocytosis Current Visit: Yes Status: Acute Code(s): D72.829 - ELEVATED WHITE BLOOD CELL COUNT, UNSPECIFIED SNOMED Code(s): 536558756 Plan: 1-we will obtain a CT of abdominal pelvis to rule out any intra-abdominal source for his elevated white count 2-as the white count has always shown a downward trend we will hold on any systemic antibiotic therapy at this point as the patient does not look toxic and not running any fever We will follow on clinical condition and cultures to further adjust medication if needed Thank you for this consultation we will follow the patient along with you Time with Patient: Greater than 30
[2019-02-28] MEDS: PANTOPRAZOLE 40 MG TABLET PO SCH (08:35)
[2019-02-28] MEDS: SPIRONOLACTONE 25 MG TAB PO SCH (08:35)
[2019-02-28] MEDS: RIFAXIMIN 550 MG TABLET PO SCH ×2 (08:35→21:22)
[2019-02-28] MEDS: THIAMINE 100 MG/ML 2 ML VIAL IVP SCH (08:35)
[2019-02-28] MEDS: FUROSEMIDE 40 MG TAB PO SCH (08:35)
[2019-02-28] MEDS: IOPAMIDOL CONTRAST (ORAL USE) VIAL PO PRN ×2 (08:36→09:28)
[2019-02-28] MEDS: LACTULOSE 20 GM/30 ML CUP PO SCH ×2 (08:36→11:47)
--- NOTE | 2019-02-28 11:56 | CT ---
EXAMINATION TYPE: CT abdomen pelvis w con DATE OF EXAM: 02/28/2019 COMPARISON: February 16, 2019 HISTORY: LEUKOCYTOSIS/AB PAIN CT DLP: 1341.9 mGycm CONTRAST: CT scan of the abdomen and pelvis is performed with Oral Contrast and with IV Contrast, patient injec shawna with 100 mL of Isovue 300. FINDINGS: LUNG BASES-: Interval development of basilar pleural effusions and compressive atelectasis. Underlyin g infiltrates not excluded. LIVER/GB: Hepatomegaly with diffuse hepatic heterogeneity may reflect underlying hepatic steatosis. T he gallbladder surgically absent. No space occupying hepatic lesion. Biliary tree is of normal calibe r. PANCREAS: There is inflammatory change near the head of the pancreas and this may reflect pancreatiti s. Correlate with amylase and lipase. SPLEEN: No splenic enlargement. No lesion seen. ADRENALS: No nodule. No thickening. KIDNEYS/BLADDER: No hydronephrosis. No nephrolithiasis. No distinct renal mass. Urinary bladder g rossly unremarkable. BOWEL: Small bowel distention which may reflect ileus. Appendix not visualized. No inflammation. GENITAL ORGANS: No gross abnormality. LYMPH NODES: No greater than 1cm abdominal or pelvic lymph nodes are appreciated. AORTA: No significant abnormality. OSSEOUS STRUCTURES: No significant abnormality is seen. OTHER: Moderate to large amount of ascites has also developed in the interval. There is also subcutan eous edema felt to reflect anasarca. IMPRESSION: 1. Interval development of moderate to large amount of ascites and subcutaneous edema with basilar pl eural effusions and compressive atelectasis and/or infiltrates. Correlate for anasarca. 2. Hepatomegaly with underlying diffuse hepatocellular disease versus hepatic steatosis. 3. Inflammatory change surrounding the pancreatic head may reflect pancreatitis. Correlate clinically .
[2019-02-28] MEDS: HYDROcodone/APAP 5-325MG 1 EACH TAB PO PRN ×2 (13:40→21:22)
[2019-02-28 14:46] VITALS: BMI 25.0
--- NOTE | 2019-02-28 16:29 | P.PN ---
Subjective Progress Note Date: 02/28/19 This is a 58-year-old female admitted with altered mental status secondary to hepatic encephalopathy, alcohol abuse, cirrhosis, hyperammonia and multiple other medical issues. CO2 14,on bicarb drip. Maintained on empiric antibiotics. Afebrile, normal WBC, blood cultures no growth in 72 hours. INR 1.6. T bili remains at 14.6, transaminases trending down. Ammonia 111, on lactulose. Abdominal ultrasound reporting trace amount of ascites, inadequate for paracentesis. Vital signs stable. Patient was on D5 W with improvement in sodium down to 146. Renal function improving down to 1.12. 02/21/2019 continues on Xifaxan, lactulose, ammonia 107. T bili 14.7, LFTs remain elevated. Potassium 3.1 being replaced. Afebrile, WBC 15.3, blood cultures negative. Bicarb 17, on bicarb drip. Sodium level improving. Evaluated by GI with recommendations noted. 02/22/2019 ammonia level down to 84, patient alert, following basic commands. Bicarb 25, on bicarb drip. Tolerating tube feeds at goal with minimal to no residuals.Sodium 147. Vital signs stable, maintaining O2 sats in the 90s on room air. T-max 99.2 WBC up to 18.8. Potassium 2.8. 02/23/2019 ammonia continues trending down, currently 49. More alert today, alert and oriented to person, following simple commands. Maintained on tube feeds and aspiration precautions. 02/24/2019 remains alert to person only, significantly weak. Ammonia level significantly decreased to less than 9. Speech therapy evaluated patient at bedside recommended pured with thin liquids. NG tube remains in place. Blood sugars controlled. Afebrile, WBC 13.2. Blood cultures no growth. Sodium 140, potassium 3 ,bicarb 36, creatinine 0.79, T bili 12.5, AST 259, ALT 106, ALK PHOS 275, albumin 2.2. 02/27/2019 significant clinical improvement ,MedSurg overflow. T bili and LFTs improving. Maintained on diuretics, Xifaxan, lactulose. Ammonia 16. Extremely weak. Consuming 25-50% of diet as per staff. Sodium 129. Afebrile, WBC trending down to 14.3. 02/28/2019 afebrile. Leukocytosis improving, CT completed, pending. Significant weakness, consumed 100% of dinner last night. PT/OT. Telemetry sinus rhythm. Sensorium significantly improved, alert and oriented 3. Objective - Vital Signs Vital signs: Vital Signs Temp 98.0 F 02/28/19 15:00 Pulse 94 02/28/19 15:00 Resp 16 02/28/19 15:00 BP 104/71 02/28/19 15:00 Pulse Ox 96 02/28/19 15:00 Intake & Output 02/27/19 02/28/19 02/28/19 18:59 06:59 18:59 Intake Total 1040 360 740 Output Total 625 410 625 Balance 415 -50 115 Weight 74.2 kg 72.5 kg 72.5 kg Intake: Oral 1040 360 740 Output: Urine 625 410 625 Other: Voiding Method Indwelling Catheter Indwelling Catheter Indwelling Catheter - Exam PHYSICAL EXAM: VITAL SIGNS: As above GENERAL: Jaundiced, encephalopathic, alert and oriented 3, sitting up in chair, no acute distress. HEENT: Positive icterus, pupils equal, oral mucosa moist NECK: No JVD. No thyroid enlargement. No LNs CARDIOVASCULAR: S1, S2 regular. Mild tachycardia, No murmur RESPIRATION: Breath sounds clear, diminished in the bases. No rhonchi, no wheezing, fine basilar crackles. ABDOMEN: Firm, distended, positive ascites, nontender ,No guarding. no masses palpable. No hepatosplenomegaly.Hypoactive Bowel sounds heard. Extremities: Positive pitting edema, positive anasarca NERVOUS SYSTEM:mental status improving ,following simple commands. Significantly weak. No focal deficits. Skin: no rash, upper middle back and sacrum stage II pressure ulcers, present on admission - Labs CBC & Chem 7: 02/27/19 05:06 02/27/19 05:06 Assessment and Plan Assessment: Altered mental status secondary to septic hepatic encephalopathy and Hyperammonia, present on admission Severe Alcohol abuse with alcoholic liver disease, cirrhosis Abdominal ascites, not significant per ultrasound Coagulopathy secondary to alcohol abuse Anemia of chronic disease Alcoholic pancreatitis Acute renal failure, improving Hypernatremia, improving Hypokalemia Bibasilar atelectasis Stage II pressure ulcers now back and sacrum ,present on admission Plan: Continue current medication regime ,monitoring and symptomatic treatment. MedSurg overflow. Significant weakness, daily PT/. Labs ordered. Abdominal CT results pending. Follow closely with GI. The impression and plan of care has been dictated as directed. : I performed a history and examination of this patient, discussed the same with the dictator. I agree with the dictator's note ,documented as a scribe. Any additional findings or plans will be noted.
--- NOTE | 2019-02-28 18:57 | PN ---
PROGRESS NOTE DATE OF SERVICE: 02/28/2019 REASON FOR FOLLOWUP: Leukocytosis. INTERVAL HISTORY: The patient is currently afebrile. The patient has been breathing comfortably. She denies having any chest pain or any cough. Abdominal pain is currently controlled. No nausea, vomiting or any diarrhea. PHYSICAL EXAMINATION: Blood pressure 104/71 with a pulse of 94, temperature 98. She is 96% on room air. General description is a middle-aged female up in the chair in no distress. RESPIRATORY SYSTEM: Unlabored breathing. Clear to auscultation anteriorly. HEART: S1, S2. Regular rate and rhythm. ABDOMEN: Soft, slightly distended. No guarding or rigidity. LABS: No new labs have been obtained today. Blood culture on admission has been negative. CT of abdomen and pelvis did show ascites and possible pancreatitis. DIAGNOSTIC IMPRESSION AND PLAN: Patient with leukocytosis which is likely multifactorial in this patient who did have a component of alcoholic hepatitis and pancreatitis. We will obtain amylase and lipase levels. The patient currently does not look toxic and white count is showing a downward trend without any antibiotics. That will be monitored closely and we will continue with supportive care. MMODL / IJN: [id number] /
[2019-02-28 20:53] LABS: Glucose,Whole Blood 119 mg/dL (75-99)
[2019-03-01 06:43] LABS: Anisocytosis Slight; Basophils # (A) 0.1 k/uL (0-0.2); Basophils % (A) 1 %; Eosinophils # (A) 0.1 k/uL (0-0.7); Eosinophils % (A) 1 %; HGB 9.2 gm/dL (11.4-16.0); Hypochromasia Slight; Lymphocytes # (A) 0.7 k/uL (1.0-4.8); Lymphocytes % (A) 8 %; MCH 39.1 pg (25.0-35.0); MCHC 31.7 g/dL (31.0-37.0); MCV 123.5 fL (80.0-100.0); Mean Platelet Volume 10.5; Monocytes # (A) 0.6 k/uL (0-1.0); Monocytes % (A) 7 %; Neutrophils % (A) 81 %; Platelet Count 123 k/uL (150-450); RBC 2.35 m/uL (3.80-5.40); RDW 16.7 % (11.5-15.5); WBC 8.7 k/uL (3.8-10.6)
[2019-03-01 06:46] LABS: Macrocytosis Marked
[2019-03-01 06:48] LABS: ALT 80 U/L (4-34); AST 99 U/L (14-36); African American GFR (CKD) >90 (>60 ml/min/1.73 sqM); Albumin 1.9 g/dL (3.5-5.0); Alkaline Phosphatase 232 U/L (38-126); Anion Gap 5 mmol/L; Blood Urea Nitrogen 28 mg/dL (7-17); Calcium 7.5 mg/dL (8.4-10.2); Carbon Dioxide 28 mmol/L (22-30); Chloride 98 mmol/L (98-107); Glucose 82 mg/dL (74-99); Non-African American GFR(CKD) 83 (>60 ml/min/1.73 sqM); Potassium 4.2 mmol/L (3.5-5.1); Sodium 131 mmol/L (137-145); Total Protein 5.1 g/dL (6.3-8.2)
[2019-03-01] MEDS: RIFAXIMIN 550 MG TABLET PO SCH ×2 (08:22→21:58)
[2019-03-01] MEDS: FUROSEMIDE 40 MG TAB PO SCH (08:22)
[2019-03-01] MEDS: THIAMINE 100 MG/ML 2 ML VIAL IVP SCH (08:22)
[2019-03-01] MEDS: PANTOPRAZOLE 40 MG TABLET PO SCH (08:22)
[2019-03-01] MEDS: SPIRONOLACTONE 25 MG TAB PO SCH (08:22)
[2019-03-01] MEDS: LACTULOSE 20 GM/30 ML CUP PO SCH (08:23)
[2019-03-01 14:54] LABS: Amylase 102 U/L (30-110)
--- NOTE | 2019-03-01 17:04 | P.PN ---
Subjective Progress Note Date: 03/01/19 This is a 58-year-old female admitted with altered mental status secondary to hepatic encephalopathy, alcohol abuse, cirrhosis, hyperammonia and multiple other medical issues. CO2 14,on bicarb drip. Maintained on empiric antibiotics. Afebrile, normal WBC, blood cultures no growth in 72 hours. INR 1.6. T bili remains at 14.6, transaminases trending down. Ammonia 111, on lactulose. Abdominal ultrasound reporting trace amount of ascites, inadequate for paracentesis. Vital signs stable. Patient was on D5 W with improvement in sodium down to 146. Renal function improving down to 1.12. 02/21/2019 continues on Xifaxan, lactulose, ammonia 107. T bili 14.7, LFTs remain elevated. Potassium 3.1 being replaced. Afebrile, WBC 15.3, blood cultures negative. Bicarb 17, on bicarb drip. Sodium level improving. Evaluated by GI with recommendations noted. 02/22/2019 ammonia level down to 84, patient alert, following basic commands. Bicarb 25, on bicarb drip. Tolerating tube feeds at goal with minimal to no residuals.Sodium 147. Vital signs stable, maintaining O2 sats in the 90s on room air. T-max 99.2 WBC up to 18.8. Potassium 2.8. 02/23/2019 ammonia continues trending down, currently 49. More alert today, alert and oriented to person, following simple commands. Maintained on tube feeds and aspiration precautions. 02/24/2019 remains alert to person only, significantly weak. Ammonia level significantly decreased to less than 9. Speech therapy evaluated patient at bedside recommended pured with thin liquids. NG tube remains in place. Blood sugars controlled. Afebrile, WBC 13.2. Blood cultures no growth. Sodium 140, potassium 3 ,bicarb 36, creatinine 0.79, T bili 12.5, AST 259, ALT 106, ALK PHOS 275, albumin 2.2. 02/27/2019 significant clinical improvement ,MedSurg overflow. T bili and LFTs improving. Maintained on diuretics, Xifaxan, lactulose. Ammonia 16. Extremely weak. Consuming 25-50% of diet as per staff. Sodium 129. Afebrile, WBC trending down to 14.3. 02/28/2019 afebrile. Leukocytosis improving, CT completed, pending. Significant weakness, consumed 100% of dinner last night. PT/OT. Telemetry sinus rhythm. Sensorium significantly improved, alert and oriented 3. 03/01/2019 currently on MedSurg unit. Afebrile, normal WBC. T bili, LFTs, lipase continue trending down. Platelets up to 123, Ammonia less than 9. Sodium 131. Consuming 100% of diet intake with no nausea vomiting or diarrhea. Daily PT. Abdominal CT reporting interval development of moderate to large amount of ascites, subcutaneous edema with bibasilar pleural effusions and compressive atelectasis and/or Infiltrates. Hepatomegaly with diffuse hepatocellular disease versus hepatic steatosis. Inflammatory change surrounding the pancreatic head, possibly pancreatitis. Objective - Vital Signs Vital signs: Vital Signs Temp 98.1 F 03/01/19 14:20 Pulse 92 03/01/19 14:20 Resp 17 03/01/19 14:20 BP 100/69 03/01/19 14:20 Pulse Ox 97 03/01/19 14:20 Intake & Output 02/28/19 03/01/19 03/01/19 18:59 06:59 18:59 Intake Total 1100 100 Output Total 625 Balance 475 100 Weight 72.5 kg Intake: Oral 1100 100 Output: Urine 625 Other: Voiding Method Indwelling Catheter Bedside Commode Bedside Commode Bedpan Bedpan # Voids 1 2 - Exam PHYSICAL EXAM: VITAL SIGNS: As above GENERAL: Minimally Jaundiced, alert and oriented 3, sitting up in chair, no acute distress. HEENT: Positive icterus, pupils equal, oral mucosa moist NECK: No JVD. No thyroid enlargement. No LNs CARDIOVASCULAR: S1, S2 regular. Mild tachycardia, No murmur RESPIRATION: Breath sounds clear, diminished in the bases. No rhonchi, no wheezing, fine basilar crackles. ABDOMEN: Firm, distended, positive ascites, nontender ,No guarding. no masses palpable. No hepatosplenomegaly.Hypoactive Bowel sounds heard. Extremities: Positive pitting edema, positive anasarca NERVOUS SYSTEM: Significantly weak. No focal deficits. Skin: no rash, upper middle back and sacrum stage II pressure ulcers, present on admission - Labs CBC & Chem 7: 03/01/19 06:18 03/01/19 06:18 Labs: Abnormal Lab Results - Last 24 Hours (Table) 02/28/19 03/01/19 03/01/19 Range/Units 20:52 06:18 06:18 RBC 2.35 L (3.80-5.40) m/uL Hgb 9.2 L (11.4-16.0) gm/dL Hct 29.0 L (34.0-46.0) % MCV 123.5 H (80.0-100.0) fL MCH 39.1 H (25.0-35.0) pg RDW 16.7 H (11.5-15.5) % Plt Count 123 L (150-450) k/uL Lymphocytes # 0.7 L (1.0-4.8) k/uL Macrocytosis Marked A Sodium 131 L (137-145) mmol/L BUN 28 H (7-17) mg/dL POC Glucose (mg/dL) 119 H (75-99) mg/dL Calcium 7.5 L (8.4-10.2) mg/dL Total Bilirubin 6.0 H (0.2-1.3) mg/dL AST 99 H (14-36) U/L ALT 80 H (4-34) U/L Alkaline Phosphatase 232 H (38-126) U/L Total Protein 5.1 L (6.3-8.2) g/dL Albumin 1.9 L (3.5-5.0) g/dL Lipase (23-300) U/L 03/01/19 Range/Units 06:18 RBC (3.80-5.40) m/uL Hgb (11.4-16.0) gm/dL Hct (34.0-46.0) % MCV (80.0-100.0) fL MCH (25.0-35.0) pg RDW (11.5-15.5) % Plt Count (150-450) k/uL Lymphocytes # (1.0-4.8) k/uL Macrocytosis Sodium (137-145) mmol/L BUN (7-17) mg/dL POC Glucose (mg/dL) (75-99) mg/dL Calcium (8.4-10.2) mg/dL Total Bilirubin (0.2-1.3) mg/dL AST (14-36) U/L ALT (4-34) U/L Alkaline Phosphatase (38-126) U/L Total Protein (6.3-8.2) g/dL Albumin (3.5-5.0) g/dL Lipase 302 H (23-300) U/L Assessment and Plan Assessment: Altered mental status secondary to septic hepatic encephalopathy and Hyper ammonia, present on admission, improving Severe Alcohol abuse with alcoholic liver disease, cirrhosis Abdominal ascites, Coagulopathy secondary to alcohol abuse Anemia of chronic disease Alcoholic pancreatitis Acute renal failure, improving Hypernatremia, improving Hypokalemia Bibasilar atelectasis Stage II pressure ulcers now back and sacrum ,present on admission Plan: Continue current medication regime ,monitoring and symptomatic treatment. Abnormal abdominal CT suggesting development of moderate to large amount of ascites, further GI recommendations pending.Significant weakness, daily PT/. Social work assisting with discharge planning to subacute rehab. The impression and plan of care has been dictated as directed. : I performed a history and examination of this patient, discussed the same with the dictator. I agree with the dictator's note ,documented as a scribe. Any additional findings or plans will be noted.
--- NOTE | 2019-03-02 05:25 | PN ---
PROGRESS NOTE DATE OF SERVICE: 03/01/2019 REASON FOR FOLLOWUP: Leukocytosis, possibly reactive. INTERVAL HISTORY: The patient is currently afebrile. Patient has been breathing comfortably. Denies having any chest pain or cough. Abdominal pain has improved. No nausea or vomiting and able to keep the food down and no diarrhea. PHYSICAL EXAMINATION: Blood pressure 112/79 with a pulse of 91, temperature 98.2. She is 95% on room air. General description is middle-aged female up in the chair in no distress. RESPIRATORY SYSTEM: Unlabored breathing, clear to auscultation anteriorly. HEART: S1, S2. Regular rate and rhythm. ABDOMEN: Soft, mildly distended. No guarding or rigidity. LABS: Hemoglobin 9.2, white count 8.7 with a BUN of 28, creatinine 0.79. Lipase is 302. Amylase is 102. DIAGNOSTIC IMPRESSION AND PLAN: Patient with leukocytosis, more likely reactive in this patient did have alcoholic hepatitis and possible pancreatitis. The patient is currently afebrile, does not look toxic and her white count normalized. We will watch the patient closely off antibiotic therapy and continue with supportive care. MMODL / IJN: [id number] /
[2019-03-02 06:59] LABS: Glucose,Whole Blood 94 mg/dL (75-99)
[2019-03-02 07:50] LABS: Anisocytosis Slight; Basophils # (A) 0.1 k/uL (0-0.2); Basophils % (A) 1 %; Eosinophils # (A) 0.1 k/uL (0-0.7); Eosinophils % (A) 1 %; HCT 30.1 % (34.0-46.0); HGB 9.5 gm/dL (11.4-16.0); Hypochromasia Slight; Lymphocytes # (A) 0.8 k/uL (1.0-4.8); Lymphocytes % (A) 9 %; MCH 38.9 pg (25.0-35.0); MCHC 31.5 g/dL (31.0-37.0); MCV 123.5 fL (80.0-100.0); Macrocytosis Marked; Mean Platelet Volume 10.3; Monocytes # (A) 0.6 k/uL (0-1.0); Monocytes % (A) 6 %; Neutrophils # (A) 7.3 k/uL (1.3-7.7); Neutrophils % (A) 81 %; Platelet Count 155 k/uL (150-450); RBC 2.43 m/uL (3.80-5.40); RDW 16.5 % (11.5-15.5)
[2019-03-02 08:01] LABS: African American GFR (CKD) >90 (>60 ml/min/1.73 sqM); Anion Gap 4 mmol/L; Blood Urea Nitrogen 24 mg/dL (7-17); Calcium 7.8 mg/dL (8.4-10.2); Carbon Dioxide 30 mmol/L (22-30); Chloride 100 mmol/L (98-107); Glucose 80 mg/dL (74-99); Non-African American GFR(CKD) 83 (>60 ml/min/1.73 sqM); Potassium 4.1 mmol/L (3.5-5.1); Sodium 134 mmol/L (137-145)
[2019-03-02] MEDS: LACTULOSE 20 GM/30 ML CUP PO SCH (08:44)
[2019-03-02] MEDS: THIAMINE 100 MG/ML 2 ML VIAL IVP SCH (08:44)
[2019-03-02] MEDS: SPIRONOLACTONE 25 MG TAB PO SCH (08:45)
[2019-03-02] MEDS: PANTOPRAZOLE 40 MG TABLET PO SCH (08:45)
[2019-03-02] MEDS: FUROSEMIDE 40 MG TAB PO SCH (08:45)
[2019-03-02] MEDS: RIFAXIMIN 550 MG TABLET PO SCH ×2 (08:45→21:37)
[2019-03-02 12:02] LABS: Glucose,Whole Blood 140 mg/dL (75-99)
[2019-03-02] MEDS: HYDROcodone/APAP 5-325MG 1 EACH TAB PO PRN (21:37)
--- NOTE | 2019-03-02 23:23 | PN ---
PROGRESS NOTE DATE OF SERVICE: 03/02/2019 REASON FOR FOLLOWUP: Leukocytosis, possibly reactive. INTERVAL HISTORY: The patient is currently afebrile. Patient is breathing comfortably. The patient denies having any chest pain or any cough. No nausea or vomiting. Denies any worsening abdominal pain and no diarrhea. PHYSICAL EXAMINATION: Blood pressure is 99/66 with a pulse of 74, temperature 97.9. She is 97% on room air. General description is a middle-aged female up in the chair in no distress. RESPIRATORY SYSTEM: Unlabored breathing, clear to auscultation anteriorly. HEART: S1, S2. Regular rate and rhythm. ABDOMEN: Soft, slightly distended. No guarding or rigidity. LABS: Hemoglobin 9.5, white count 9.0, BUN of 24, creatinine 0.79. DIAGNOSTIC IMPRESSION AND PLAN: Patient with leukocytosis, more likely reactive in this patient who did have alcoholic hepatitis plus on admission. Currently she does not look toxic and is not running any fever, and the white count improved without antibiotic therapy. Hence, no need for any antibiotic. We will monitor the patient closely off antibiotic therapy and continue with supportive care. MMODL / IJN: [id number] /
[2019-03-03 08:06] VITALS: BP 104/71; PULSE 82; RESP 16; TEMP 98.9
[2019-03-03] MEDS: PANTOPRAZOLE 40 MG TABLET PO SCH (08:08)
[2019-03-03] MEDS: LACTULOSE 20 GM/30 ML CUP PO SCH (08:08)
[2019-03-03] MEDS: SPIRONOLACTONE 25 MG TAB PO SCH (08:08)
[2019-03-03] MEDS: FUROSEMIDE 40 MG TAB PO SCH (08:08)
[2019-03-03] MEDS: THIAMINE 100 MG/ML 2 ML VIAL IVP SCH (08:08)
[2019-03-03] MEDS: RIFAXIMIN 550 MG TABLET PO SCH (08:08)
[2019-03-03 10:28] LABS: Anisocytosis Slight; Basophils # (A) 0.1 k/uL (0-0.2); Basophils % (A) 1 %; Eosinophils # (A) 0.1 k/uL (0-0.7); Eosinophils % (A) 1 %; HCT 29.7 % (34.0-46.0); Lymphocytes # (A) 1.3 k/uL (1.0-4.8); Lymphocytes % (A) 12 %; MCH 40.5 pg (25.0-35.0); MCHC 33.8 g/dL (31.0-37.0); MCV 120.1 fL (80.0-100.0); Macrocytosis Marked; Mean Platelet Volume 10.8; Monocytes # (A) 0.7 k/uL (0-1.0); Monocytes % (A) 6 %; Neutrophils # (A) 8.6 k/uL (1.3-7.7); Neutrophils % (A) 78 %; Platelet Count 186 k/uL (150-450); RBC 2.47 m/uL (3.80-5.40)
[2019-03-03 10:31] LABS: ALT 66 U/L (4-34); AST 88 U/L (14-36); African American GFR (CKD) >90 (>60 ml/min/1.73 sqM); Alkaline Phosphatase 235 U/L (38-126); Anion Gap 6 mmol/L; Blood Urea Nitrogen 23 mg/dL (7-17); Calcium 7.9 mg/dL (8.4-10.2); Carbon Dioxide 29 mmol/L (22-30); Chloride 100 mmol/L (98-107); Glucose 89 mg/dL (74-99); Non-African American GFR(CKD) >90 (>60 ml/min/1.73 sqM); Potassium 4.3 mmol/L (3.5-5.1); Sodium 135 mmol/L (137-145); Total Bilirubin 5.6 mg/dL (0.2-1.3)
[2019-03-03 11:21] LABS: Polychromasia Present
--- NOTE | 2019-03-03 13:59 | P.DS ---
Providers Date of admission: 02/16/19 21:21 Expected date of discharge: 03/03/19 Attending physician: Hilario Hudson Consults: 02/16/19 21:21 Consult Physician Stat Consulting Provider: Antonio Arrieta Consult Reason/Comments: acute hepatic encephalopathy Do you want consulting provider notified?: Already Contacted 02/26/19 14:36 Consult Physician Routine Consulting Provider: Yandel Starkey Consult Reason/Comments: leucocytosis Do you want consulting provider notified?: Yes Primary care physician: Stated None Hospital Course: Final diagnosis Altered mental status secondary to septic hepatic encephalopathy and Hyperammonia, present on admission, improving Severe Alcohol abuse with alcoholic liver disease, cirrhosis Abdominal ascites, Coagulopathy secondary to alcohol abuse Anemia of chronic disease Alcoholic pancreatitis Acute renal failure, improving Hypernatremia, improving Hypokalemia Bibasilar atelectasis Stage II pressure ulcers now back and sacrum ,present on admission Discharge disposition Patient is being discharged in a stable condition with guarded prognosis to [facility] for continued PT/OT therapy along with wound care. Patient will need to follow-up with primary care provider along with GI upon discharge. Total time taken is 35 minutes. History of present illness This is a 58-year-old female admitted with altered mental status secondary to hepatic encephalopathy, alcohol abuse, cirrhosis, hyperammonia and multiple other medical issues. CO2 14,on bicarb drip. Maintained on empiric antibiotics. Afebrile, normal WBC, blood cultures no growth in 72 hours. INR 1.6. T bili remains at 14.6, transaminases trending down. Ammonia 111, on lactulose. Abdominal ultrasound reporting trace amount of ascites, inadequate for paracentesis. Vital signs stable. Patient was on D5 W with improvement in sodium down to 146. Renal function improving down to 1.12. 02/21/2019 continues on Xifaxan, lactulose, ammonia 107. T bili 14.7, LFTs remain elevated. Potassium 3.1 being replaced. Afebrile, WBC 15.3, blood cultures negative. Bicarb 17, on bicarb drip. Sodium level improving. Evaluated by GI with recommendations noted. 02/22/2019 ammonia level down to 84, patient alert, following basic commands. Bicarb 25, on bicarb drip. Tolerating tube feeds at goal with minimal to no residuals.Sodium 147. Vital signs stable, maintaining O2 sats in the 90s on room air. T-max 99.2 WBC up to 18.8. Potassium 2.8. 02/23/2019 ammonia continues trending down, currently 49. More alert today, alert and oriented to person, following simple commands. Maintained on tube feeds and aspiration precautions. 02/24/2019 remains alert to person only, significantly weak. Ammonia level significantly decreased to less than 9. Speech therapy evaluated patient at bedside recommended pured with thin liquids. NG tube remains in place. Blood sugars controlled. Afebrile, WBC 13.2. Blood cultures no growth. Sodium 140, potassium 3 ,bicarb 36, creatinine 0.79, T bili 12.5, AST 259, ALT 106, ALK PHOS 275, albumin 2.2. 02/27/2019 significant clinical improvement ,MedSurg overflow. T bili and LFTs improving. Maintained on diuretics, Xifaxan, lactulose. Ammonia 16. Extremely weak. Consuming 25-50% of diet as per staff. Sodium 129. Afebrile, WBC trending down to 14.3. 02/28/2019 afebrile. Leukocytosis improving, CT completed, pending. Significant weakness, consumed 100% of dinner last night. PT/OT. Telemetry sinus rhythm. Sensorium significantly improved, alert and oriented 3. 03/01/2019 currently on MedSurg unit. Afebrile, normal WBC. T bili, LFTs, lipase continue trending down. Platelets up to 123, Ammonia less than 9. Sodium 131. Consuming 100% of diet intake with no nausea vomiting or diarrhea. Daily PT. Abdominal CT reporting interval development of moderate to large amount of ascites, subcutaneous edema with bibasilar pleural effusions and compressive atelectasis and/or Infiltrates. Hepatomegaly with diffuse hepatocellular disease versus hepatic steatosis. Inflammatory change surrounding the pancreatic head, possibly pancreatitis. On exam today vital signs are stable. Temp is 98.9F, pulse is 82, respirations are 16, blood pressure is 104/71, oxygen saturation is 95% on room air. Cardio S1, S2 are present. Respiratory system shows diminished breath sounds at the bases with a few scattered crackles noted. Abdomen is firm, distended, and nontender. Nervous system shows no focal deficits with mild to moderate diffuse weakness. Patient will need to follow-up with primary care provider along with GI upon discharge from ECF. Please refer to medication reconciliation sheet for a list of medications. Patient Condition at Discharge: Fair Plan - Discharge Summary Discharge Rx Participant: No New Discharge Prescriptions: New Spironolactone [Aldactone] 25 mg PO DAILY tab Lactulose [Cephulac] 30 gm PO DAILY ml Furosemide [Lasix] 40 mg PO DAILY tab HYDROcodone/APAP 5-325MG [[place] 5-325] 1 each PO Q4HR PRN #3 tab PRN Reason: Pain Pantoprazole [Protonix] 40 mg PO DAILY tablet. Thiamine [Vitamin B-1] 100 mg PO DAILY #30 tablet Rifaximin [Xifaxan] 550 mg PO BID tablet Discharge Medication List Furosemide [Lasix] 40 mg PO DAILY tab 03/03/19 [Rx] HYDROcodone/APAP 5-325MG [[place] 5-325] 1 each PO Q4HR PRN #3 tab 03/03/19 [Rx] Lactulose [Cephulac] 30 gm PO DAILY ml 03/03/19 [Rx] Pantoprazole [Protonix] 40 mg PO DAILY tablet. 03/03/19 [Rx] Rifaximin [Xifaxan] 550 mg PO BID tablet 03/03/19 [Rx] Spironolactone [Aldactone] 25 mg PO DAILY tab 03/03/19 [Rx] Thiamine [Vitamin B-1] 100 mg PO DAILY #30 tablet 03/03/19 [Rx] Follow up Appointment(s)/Referral(s): [facility], [NON-STAFF] - 1-2 Days None,Stated [Primary Care Provider] - 1-2 days Ambulatory/Diagnostic Orders: Basic Metabolic Panel [LAB.AMB] Time Frame: 3 Days, Location: None Selected Complete Blood Count w/diff [LAB.AMB] Time Frame: 3 Days, Location: None Selected Total Bilirubin [LAB.AMB] Time Frame: 3 Days, Location: None Selected Activity/Diet/Wound Care/Special Instructions: Patient is going to [facility] as tolerated Follow-up with primary care provider Continue with low-sodium 2000 mg diet Continue with physical therapy Continue with local wound care to the pressure ulcers on the back and sacrum Continue to avoid all alcohol intake Follow-up with GI upon discharge Discharge Disposition: TRANSFER TO SNF/ECF
--- NOTE | 2019-03-03 15:44 | PN ---
PROGRESS NOTE DATE OF SERVICE: 03/03/2019 REASON FOR FOLLOWUP: Leukocytosis, likely reactive. INTERVAL HISTORY: The patient is currently afebrile. The patient is breathing comfortably. The patient denies having any chest pain or shortness of breath or cough. No worsening abdominal pain. No nausea, vomiting. No diarrhea. PHYSICAL EXAMINATION: Blood pressure 104/71 with a pulse of 82, temperature 98.9. She is 95% on room air. General description is a middle-aged female up in the bed in no distress. RESPIRATORY SYSTEM: Unlabored breathing. Clear to auscultation anteriorly. HEART: S1, S2. Regular rate and rhythm. ABDOMEN: Soft. Slightly distended. No guarding or rigidity. LABS: Cultures remain negative. DIAGNOSTIC IMPRESSION AND PLAN: Patient with leukocytosis which is likely multifactorial in this patient who did have alcoholic hepatitis and possible alcoholic pancreatitis. Patient currently with no abdominal pain and is not running any fever. White count normalized without any antibiotic therapy; hence recommending no antibiotic on discharge. Questions and concerns were answered. MMODL / IJN: [id number] /
--- NOTE | 2019-03-06 10:41 | CDI ---
Documentation Clarification Form Date: 03/06/19 From: Teresita Bunch Phone: If you have a question about this query, please contact Jennifer Campbell, Water Treatment Plant Supervisor at [phone] between 8am and 5pm. Admit Date: 02/16/19 Discharge Date: 03/03/19 Patient Name: Isabella Aguirre Visit Number: [id number] ATTENTION: The Clinical Documentation Specialists (CDI) and [facility] Coding Staff appreciate your assistance in clarifying documentation. Please respond to the clarification below the line at the bottom and electronically sign. The CDI & [facility] Coding staff will review the response and follow-up if needed. Please note: Queries are made part of the Legal Health Record. If you have any questions, please contact the author of this message via ITS. Dear Dr. Esequiel Barksdale, The diagnosis septic hepatic encepalopathy was documented in the HP, PNs & DS, but sepsis is not noted in subsequent documentation. History/Risk Factors: alcoholism Clinical Indicators: encephalopathy-hepatic & septic, alcoholic cirrhosis & hepatitis with ascites, alcoholic pancreatitis, Stage II pressure ulcer of back & sacrum, rhabdomyolysis Treatment: Zosyn, IV fluids, Please clarify if the sepsis was Present/active/treated this admission Sepsis ruled out Other, please specify Clinically unable to determine Documentation as per my note no additional documentation is necessary or will be done MTDD
== END 2019-03-03 15:15 | DRG 871 ==
LOC: EC 18:27 → 2SICU 21:21 → 4SSUR 03-01 01:28
PROVIDERS: ADMIT Family Medicine; ATTEND Family Medicine
PROC: 0D9670Z Drainage of Stomach with Drainage Device, Via Natural or Artificial Opening (ICD-10-PCS; principal; 2019-02-16)
DX: A41.9 Sepsis, unspecified organism (principal); R40.2122 Coma scale, eyes open, to pain, at arrival to emergency department; K85.20 Alcohol induced acute pancreatitis without necrosis or infection; N17.0 Acute kidney failure with tubular necrosis; R64 Cachexia; E87.2 Acidosis; M62.82 Rhabdomyolysis; D68.4 Acquired coagulation factor deficiency; J98.11 Atelectasis; E87.1 Hypo-osmolality and hyponatremia; E87.0 Hyperosmolality and hypernatremia; K76.6 Portal hypertension; K70.40 Alcoholic hepatic failure without coma; L89.122 Pressure ulcer of left upper back, stage 2; D63.8 Anemia in other chronic diseases classified elsewhere; L89.152 Pressure ulcer of sacral region, stage 2; K70.31 Alcoholic cirrhosis of liver with ascites; K70.11 Alcoholic hepatitis with ascites; K76.0 Fatty (change of) liver, not elsewhere classified; F10.20 Alcohol dependence, uncomplicated; R40.2352 Coma scale, best motor response, localizes pain, at arrival to emergency department; R40.2232 Coma scale, best verbal response, inappropriate words, at arrival to emergency department; E87.6 Hypokalemia; K57.30 Diverticulosis of large intestine without perforation or abscess without bleeding; K21.9 Gastro-esophageal reflux disease without esophagitis; Y90.0 Blood alcohol level of less than 20 mg/100 ml; W19.XXXA Unspecified fall, initial encounter; Y92.009 Unspecified place in unspecified non-institutional (private) residence as the place of occurrence of the external cause; Z80.9 Family history of malignant neoplasm, unspecified
CPT/HCPCS: 36415; 51702; 70450; 71045; 74018; 74177; 74230; 75635; 76700; 76705; 80048; 80053; 80074; 80306; 80320; 80329; 81001; 82103; 82105; 82140; 82150; 82247; 82248; 82390; 82550; 82553; 82728; 83036; 83516; 83520; 83540; 83550; 83605; 83690; 83735; 84075; 84100; 84132; 84165; 84443; 84450; 84460; 84484; 85025; 85027; 85610; 85730; 86038; 86376; 86850; 86900; 86901; 87040; 93005; 96361; 96365; 96366; 96375; 99291